=== PATIENT | female | born 1960 | race Caucasian/White ===

== ENCOUNTER 2017-04-19 08:58 | Outpatient (POV) | payer OTHER, MEDICARE, SELFPAY | END 2017-04-19 13:57 | disposition home or self-care (01) | PROVIDERS: Visit Provider Podiatrist | DX: Z98.890 Other specified postprocedural states (principal) | CPT/HCPCS: 99024; 73630 ==

== ENCOUNTER 2017-05-03 08:53 | Outpatient (POV) | payer OTHER, MEDICARE, SELFPAY | END 2017-05-03 11:02 | disposition home or self-care (01) | PROVIDERS: Visit Provider Podiatrist | DX: Z98.890 Other specified postprocedural states (principal) | CPT/HCPCS: 99024; 73630 ==

== ENCOUNTER → 2017-05-19 11:09 | Outpatient (CLI) | payer OTHER, MEDICARE, SELFPAY ==
--- NOTE | 2017-05-19 | XR_ITS ---
XR foot RT min 3V HISTORY: Follow-up surgery/fusion ITS.REASON: POST OP VIEWS ORDERING PHYSICIAN: Elo Barakat DPM PATIENT AGE: 56 years COMPARISON: 05/03/2017 FINDINGS: Orthopedic hardware remains in place. 2 erlin are present stabilizing the first metatarsal tarsal joint with a transverse screw extending from the medial cuneiform into the base of the second metatarsal and a large staple also at the second metatarsal tarsal junction. There is an additional transverse screw at the mid aspect of the medial cuneiform extending into the second metatarsal tarsal junction. There remains good alignment. No evidence of widening at the base of the first and second metatarsals. IMPRESSION: Overall no change status post ORIF Lisfranc injury as detailed above. Good alignment of the bony structures
== END ==
PROVIDERS: PCP Family Medicine; Visit Provider Podiatrist
DX: M79.671 Pain in right foot (principal); Z09 Encounter for follow-up examination after completed treatment for conditions other than malignant neoplasm
CPT/HCPCS: 73630

== ENCOUNTER 2017-05-25 09:04 | Emergency (ER) | payer OTHER, MEDICARE, SELFPAY ==
[2017-05-25 09:22] VITALS: BP 180/90; PULSE 100; RESP 20; TEMP 36.2; O2SAT 97; BMI 35.4
--- NOTE | 2017-05-25 09:30 | HMH.EDUTC ---
[facility] [place] Disposition Clinical Impression: Influenza Disposition: Home, Self-Care Condition on Discharge: Good Instructions: Influenza, Influenza (Alternative Therapy) Additional Instructions: ? Start Tamiflu today if you are going to take it. Discussed risk and possible benefits. ? Too late to start Tamiflu. Most effective when started within 48 hours of symptoms onset ? Lots of rest ? Increase Fluids water, Gatorade, powerade, pedialyte,if /toddler/child ? Alternate Tylenol and / or ibuprofen as discussed for fever, aches, chills x 24 hours without medication for symptoms ? Follow up IMMEDIATELY for new or worsening Symptoms OR no noticeable improvement over the next 48-72 hours, 911 for difficulty or breathing ? You or your child area contagious until no fever, aches, chills for 24 hours with medication for symptoms Prescriptions: Oseltamivir Phosphate [Tamiflu 75mg Capsule] 75 mg PO BID #10 capsule Promethazine/Dextromethorphan [Promethazine-Dm Syrup] 5 ml PO Q4H PRN #200 syrup PRN Reason: Cough Time of Disposition: 09:46 Medical Decision Making Vital Signs: 05/25/17 09:22 Temperature 97.2 F L Temperature Source Temporal Artery Scan Pulse Rate [Left] 100 H Respiratory Rate 20 Blood Pressure [Right Arm] 180/90 Blood Pressure Mean [Right Arm] 120 Blood Pressure Source [Right Arm] Automatic Cuff Blood Pressure Position [Right Arm] Sitting 02 Sat by Pulse Oximetry 97 Oxygen Delivery Method Room Air - Pravin Inquiry Pt receiving controlled substance: No Pravin was queried for this patient: No [facility] [place] HPI - General Stated complaint: Aching all over [place] Mode of Arrival: Ambulatory Source of Information: Patient Limitations: No Limitations Description of Symptoms (Recalled from Triage Doc. by RN): COUGH, CONGESTION EARACHE BEGAN WEDNESDAY HE Symptoms (Recalled from RN notes): Yes Resp Symptoms (Recalled from RN notes): No Skin Symptoms (Recalled from RN notes): No MS Symptoms (Recalled from RN notes): No Functional Status (Recalled from RN notes): N - History of Present Illness Provider Complaint: Patient state that for the last couple of day she has had body aches, chills, feeling like she was breaking out in a cold sweat. Sinus pain and pressure along with coughing, sneezing and stuffy nose. State that this morning she began to have diarrhea so she came in to get checked - Related Data Home Medications Medication Instructions Recorded Confirmed clonazepam 1 mg tablet 1 mg PO QHS 05/18/17 cyclobenzaprine 10 mg tablet 10 mg PO Q8H 05/18/17 diclofenac 1 % topical gel 2 g TOPICAL QID 05/18/17 fluticasone 50 mcg/actuation nasal 50 mcg INTRANASAL QDAY PRN 05/18/17 spray,suspension lisinopril 5 mg tablet 5 mg PO QDAY 05/18/17 venlafaxine ER 75 mg 75 mg PO QDAY 05/18/17 capsule,extended release 24 hr Previous Rx's Medication Instructions Recorded Oseltamivir Phosphate [Tamiflu 75 mg PO BID #10 capsule 05/25/17 75mg Capsule] Promethazine/Dextromethorphan 5 ml PO Q4H PRN #200 syrup 05/25/17 [Promethazine-Dm Syrup] Allergies Allergy/AdvReac Type Severity Reaction Status Date / Time cephalexin [From KEFLEX] Allergy Unknown I-RASH Verified 05/25/17 09:26 - Worker's Comp Is this a Worker's Comp case?: No [facility] History Medical History: Reports:: Hypertension Other Medical History: Reports: Arthritis Laterality Cases: Right: Other Other Surgeries: Yes: Other Amputation: No Fractures: Yes - *Social History Smoking Status: Never smoker Tobacco Type: cigarettes # Packs/Day (cigarettes): 0 #Yrs smoked (if former smoker): 0 Alcohol Intake: never Alcohol Intake Frequency:: holidays/special occasions only Substance Use Type: denies use Occupational Status: employed Housing: house Household Members: spouse - Psychiatric History Expresses thoughts of harming self/others: None Suicide Plan Description: No Plan *Family Hx:: Diabetes, Hypertension ROS Obtained: Yes All s
--- NOTE | 2017-05-25 09:33 | ED_ITS ---
[facility] [place] Clinical Impression: Influenza Disposition: Home, Self-Care Condition on Discharge: Good Instructions: Influenza, Influenza (Alternative Therapy) Additional Instructions: ? Start Tamiflu today if you are going to take it. Discussed risk and possible benefits. ? Too late to start Tamiflu. Most effective when started within 48 hours of symptoms onset ? Lots of rest ? Increase Fluids water, Gatorade, powerade, pedialyte,if /toddler/child ? Alternate Tylenol and / or ibuprofen as discussed for fever, aches, chills x 24 hours without medication for symptoms ? Follow up IMMEDIATELY for new or worsening Symptoms OR no noticeable improvement over the next 48-72 hours, 911 for difficulty or breathing ? You or your child area contagious until no fever, aches, chills for 24 hours with medication for symptoms Prescriptions: Oseltamivir Phosphate [Tamiflu 75mg Capsule] 75 mg PO BID #10 capsule Promethazine/Dextromethorphan [Promethazine-Dm Syrup] 5 ml PO Q4H PRN #200 syrup PRN Reason: Cough Time of Disposition: 09:46 Medical Decision Making Vital Signs: 05/25/17 09:22 Temperature 97.2 F L Temperature Source Temporal Artery Scan Pulse Rate [Left] 100 H Respiratory Rate 20 Blood Pressure [Right Arm] 180/90 Blood Pressure Mean [Right Arm] 120 Blood Pressure Source [Right Arm] Automatic Cuff Blood Pressure Position [Right Arm] Sitting 02 Sat by Pulse Oximetry 97 Oxygen Delivery Method Room Air - Pravin Inquiry Pt receiving controlled substance: No Pravin was queried for this patient: No [facility] [place] - General Stated complaint: Aching all over [place] Mode of Arrival: Ambulatory Source of Information: Patient Limitations: No Limitations Description of Symptoms (Recalled from Triage Doc. by RN): COUGH, CONGESTION EARACHE BEGAN WEDNESDAY HE Symptoms (Recalled from RN notes): Yes Resp Symptoms (Recalled from RN notes): No Skin Symptoms (Recalled from RN notes): No MS Symptoms (Recalled from RN notes): No Functional Status (Recalled from RN notes): N - History of Present Illness Provider Complaint: Patient state that for the last couple of day she has had body aches, chills, feeling like she was breaking out in a cold sweat. Sinus pain and pressure along with coughing, sneezing and stuffy nose. State that this morning she began to have diarrhea so she came in to get checked - Related Data Home Medications Medication Instructions Recorded Confirmed clonazepam 1 mg tablet 1 mg PO QHS 05/18/17 cyclobenzaprine 10 mg tablet 10 mg PO Q8H 05/18/17 diclofenac 1 % topical gel 2 g TOPICAL QID 05/18/17 fluticasone 50 mcg/actuation nasal 50 mcg INTRANASAL QDAY PRN 05/18/17 spray,suspension lisinopril 5 mg tablet 5 mg PO QDAY 05/18/17 venlafaxine ER 75 mg 75 mg PO QDAY 05/18/17 capsule,extended release 24 hr Previous Rx's Medication Instructions Recorded Oseltamivir Phosphate [Tamiflu 75 mg PO BID #10 capsule 05/25/17 75mg Capsule] Promethazine/Dextromethorphan 5 ml PO Q4H PRN #200 syrup 05/25/17 [Promethazine-Dm Syrup] Allergies Allergy/AdvReac Type Severity Reaction Status Date / Time cephalexin [From KEFLEX] Allergy Unknown I-RASH Verified 05/25/17 09:26 - Worker's Comp Is this a Worker's Comp case?: No [facility] History Medical His
[2017-05-25 09:42] LABS: UTC Strep Screen (Rapid) Negative (Negative)
[2017-05-25 09:44] LABS: UTC Influenza A Antigen Positive (Negative); UTC Influenza B Antigen Negative (Negative)
== END 2017-05-25 10:04 | disposition home or self-care (01) ==
PROVIDERS: Emergency Provider Nurse Practitioner; PCP Family Medicine
DX: J11.1 Influenza due to unidentified influenza virus with other respiratory manifestations (principal); I10 Essential (primary) hypertension; Z79.899 Other long term (current) drug therapy; Z79.51 Long term (current) use of inhaled steroids
CPT/HCPCS: 87804; 87880; 99202

== ENCOUNTER → 2017-06-21 10:00 | Outpatient (POV) | payer OTHER, MEDICARE, SELFPAY | PROVIDERS: PCP Family Medicine; Visit Provider Specialist | DX: M21.371 Foot drop, right foot (principal) | CPT/HCPCS: 95886; 95908 ==

== ENCOUNTER → 2017-08-18 13:51 | Outpatient (CLI) | payer OTHER, MEDICARE, SELFPAY ==
--- NOTE | 2017-08-18 14:01 | XR_ITS ---
XR ribs RT min 3V w CXR1V Ordering Physician: Dede Bonner Patient Age: 56 years: Female HISTORY:. Right-sided chest pain rib pain no injury TECHNIQUE: Oblique views ribs along with AP and below diaphragm views. COMPARISON :Chest x-ray 03/31/2017 FINDINGS No acute fracture or findings at the right ribs. . No lesions evident. There is an old appearing healed rib fracture at the right lateral eighth rib. . There is extensive degenerative changes of spine with mild scoliosis. Old fixation at the L3/4 level. Disc spacer devices at L 3/4 L4/5 L5/S1 with laminectomy through the lower L-spine noted. Partially imaged.. There appear to be some old residual postsurgical changes at cervical thoracic junction likely involving T1 Lungs clear with heart zayra and mediastinal structures satisfactory. Heart is slightly larger on this AP projection IMPRESSION: ... No acute right rib fracture or lesion. Old right eighth rib fracture noted. Appears fairly old . Lungs clear no active disease . Degenerative changes throughout spine. Mild Scoliosis. Fusion & Postsurgical changes lower lumbar spine noted Minimal surgical changes at cervical thoracic junction noted
--- NOTE | 2017-08-18 14:30 | MM_ITS ---
MM Dig screening mamm BI w/CAD CAD Screening COMPARISON: Digital mammograms 11/02/2012 and 07/22/2011 INDICATION: There is no personal or family history of breast cancer. TECHNIQUE: Standard CC and MLO images were obtained. R2 CAD reviewed. FINDINGS: The breasts are composed primarily of fat with minimal scattered fibroglandular densities throughout each breast. There is a mole marker in each breast. There are few benign-appearing calcifications in each breast there is no suspicious lesion and no suspicious microcalcifications.. IMPRESSION: Fatty type breast parenchyma no suspicious lesion seen BI-RADS Category: 2 Benign Finding(s) RECOMMENDED FOLLOW-UP: 1YR - 1 YEAR FOLLOW-UP (A letter has been sent to the patient regarding results of the study.)
== END ==
PROVIDERS: PCP Family Medicine; Visit Provider Nurse Practitioner Family
DX: R07.81 Pleurodynia (principal); Z12.31 Encounter for screening mammogram for malignant neoplasm of breast
CPT/HCPCS: 71101; 77067

== ENCOUNTER → 2017-09-20 13:48 | Outpatient (CLI) | payer OTHER, MEDICARE, SELFPAY ==
--- NOTE | 2017-09-20 14:26 | MR_ITS ---
MR lumbar spine wo con, MR 3-d myelogram/MRCP HISTORY: Low back pain, sciatica, right-sided low back pain with numbness in right leg and foot. Prior back surgery. ORDERING PHYSICIAN: Bentley Watson MD PATIENT AGE: 56 years COMPARISON: 12/04/1715 TECHNIQUE: Standard multiplanar multiecho sequences are performed without contrast. 3-D MIP and myelographic images are also rendered and reviewed FINDINGS: There is normal alignment. Extensive artifact is present from postsurgical changes. Multilevel degenerative disc disease with bulging disc and osteophyte formation is noted along with facet ligamentum flavum hypertrophy as detailed below. The spinal cord ends at the L1 level. There is mild lumbar scoliosis convex left. T10-T11: Degenerative disc disease with mild ligamentum flavum hypertrophy and mild bilateral lateral recess narrowing. T11-T12: Degenerative disc disease with small concentric bulging disc slightly eccentric towards the left with mild left foraminal narrowing. Mild facet hypertrophic change on the left as well. T12-L1: Degenerative disc disease with bulging disc and endplate irregularity with type I endplate changes. There is facet and ligamentum flavum hypertrophy on the left with left lateral recess narrowing and moderate severe left-sided foraminal narrowing. Mild retrolisthesis of T12 of 2 to 3 mm L1-L2: Degenerative disc disease with type I endplate changes and irregularity of the endplates with bulging disc. There is mild retrolisthesis of L1 2 to 3 mm. Moderate to severe bilateral lateral recess narrowing and moderate to severe bilateral foraminal narrowing. L2-L3: Degenerative disc disease with bulging disc and endplate sclerosis. Significant artifact from interpedicular screws through L3. There is moderate ligamentum flavum hypertrophy causing transverse canal stenosis of 9 mm with severe bilateral lateral recess and foraminal narrowing. Artifact does obscure fine detail. L3-L4: Degenerative disc disease. There is isointense signal along the anterior right aspect of the thecal sac could be related to disc protrusion or even epidural fibrosis. This is causing mild right-sided foraminal and lateral recess narrowing. Artifact present from interpedicular screws at L4. L4-L5: Postsurgical change with disc spacer device present. Facet hypertrophy. L5-S1: Degenerative disc disease with disc spacer device present. Surgical changes. IMPRESSION: Abnormal MRI lumbar spine with multilevel lumbar spondylosis with degenerative disc disease along with facet and ligamentum flavum hypertrophy resulting in lateral recess and foraminal narrowing. Please see above for detailed description at each level. There is transverse canal stenosis at L2-L3. Postsurgical changes as described above. Please see above for detail. This is causing considerable artifact. No extruded herniated disc.
== END ==
PROVIDERS: PCP Family Medicine; Visit Provider Family Medicine
DX: M54.41 Lumbago with sciatica, right side (principal); M54.42 Lumbago with sciatica, left side
CPT/HCPCS: 72148; 76376

== ENCOUNTER → 2017-10-21 07:55 | Outpatient (CLI) | payer OTHER, MEDICARE, SELFPAY ==
[2017-10-21 09:12] LABS: Alanine Aminotransferase 97 U/L (12-78); Albumin Level 3.7 gm/dL (3.4-5.0); Alkaline Phosphatase 133 U/L (46-116); Aspartate Amino Transferase 60 U/L (15-37); Bilirubin,Direct 0.2 mg/dL (0.0-0.2); Bilirubin,Indirect 0.6 mg/dL (0.0-0.9); Bilirubin,Total 0.8 mg/dL (0.2-1.0); Total Protein,Serum 6.8 gm/dL (6.4-8.2)
== END ==
PROVIDERS: Visit Provider Nurse Practitioner Family
DX: R74.8 Abnormal levels of other serum enzymes (principal)
CPT/HCPCS: 36415; 80076

== ENCOUNTER → 2017-11-02 07:49 | Outpatient (CLI) | payer OTHER, SELFPAY ==
--- NOTE | 2017-11-02 07:51 | US_ITS ---
US liver HISTORY: ITS.REASON: ELEVATED LIVER ENZYMES ORDERING PHYSICIAN: Bentley Watson MD PATIENT AGE: 56 years COMPARISON: None FINDINGS: The exam was technically difficult due to patient's body habitus according to the technologist. PANCREAS:Unremarkable. No obvious mass or abnormal fluid collection. No ductal dilatation LIVER there is increased echogenicity of the liver with poor through transmission of sound consistent with fatty liver. No focal liver lesions or ductal dilatation evident. There is appropriate direction of blood flow within the portal vein RIGHT KIDNEY:Unremarkable. Normal size and echogenicity. No hydronephrosis GALLBLADDER:No gallstones, gallbladder wall thickening, pericholecystic fluid, or biliary dilatation. IMPRESSION: 1. Somewhat limited study secondary to patient's body habitus. 2. Fatty liver
== END ==
PROVIDERS: PCP Family Medicine; Visit Provider Family Medicine
DX: R74.8 Abnormal levels of other serum enzymes (principal)
CPT/HCPCS: 76705

== ENCOUNTER → 2017-11-15 10:26 | Outpatient (POV) | payer OTHER, MEDICARE, SELFPAY ==
[2017-11-15 10:48] VITALS: BP 167/102; PULSE 71; RESP 18; O2SAT 98
--- NOTE | 2017-11-15 12:33 | HMH.PMCON ---
Assessment and Plan (1) Postlaminectomy syndrome Current visit: Yes Status: Chronic Category: Medical Code(s): M96.1 - Postlaminectomy syndrome, not elsewhere classified (2) Sacroiliitis Current visit: Yes Status: Chronic Category: Medical Code(s): M46.1 - Sacroiliitis, not elsewhere classified (3) Degenerative disc disease, lumbar Current visit: Yes Status: Chronic Category: Medical Code(s): M51.36 - Other intervertebral disc degeneration, lumbar region - Assessment and plan all Dx Assessment and Plan for all problems:: Patient and I discussed epidural injections along with SI joint injections. We will begin with bilateral SI joint injections to see if this helps alleviate some of her pain symptoms. I will follow-up with her 2 weeks after her injection and reassess her symptoms at that time. Patient's tried and failed anti-inflammatories, physical therapy, massage therapy, home stretching. Patient is not on any anticoagulation therapy. This note was dictated using voice recognition software and may contain errors or omissions HPI - Data of Consult Consult date: 11/15/17 Requesting Physician: Kaylee Melgar APRN Primary Care Provider: Bentley Watson MD Family Provider: Referral Provider, - Consult Narrative Reason for consult: Low back pain History of present illness: Ms. Curry is a 57 year old female presents today for consultation in regards to her low back pain. Patient has had previous back surgeries. Patient's new MRI does show some worsening pathology. Patient is a candidate for surgery however due to family issues she is unable to complete this at this time. Patient states most of her pain is in her low back and radiates into her hips that time. Patient is extremely tender over bilateral SI joints. Patient does have some numbness in her bilateral legs. Patient states that walking and bending increases the pain while resting decreases her pain she rates her pain a 9 out of 10 today. Patient's tried and failed physical therapy and massage therapy. Patient is continuing to do home stretching therapy. CC: Kaylee Melgar APRN [facility] History I have reviewed the patient's past medical history: Yes Medical History: Reports:: Hypertension Other Medical History: Reports: Arthritis Laterality Cases: Right: Other Other Surgeries: Yes: Other Amputation: No Fractures: Yes - *Social History Educational Level: Completed College Smoking Status: Never smoker Tobacco Type: cigarettes # Packs/Day (cigarettes): 0 #Yrs smoked (if former smoker): 0 Alcohol Intake: never Alcohol Intake Frequency:: holidays/special occasions only Substance Use Type: denies use Occupational Status: employed Housing: house Household Members: spouse - Psychiatric History Expresses thoughts of harming self/others: None Suicide Plan Description: No Plan *Family Hx:: Diabetes, Hypertension Review of Systems - Review of Systems ROS General: no recent weight change, no fever, no sleep disturbances Respiratory: no cough, no shortness of air, no recurring pulmonary infections Cardiovascular/Peripheral Vascular: No chest pain, No palpitations, no edema, no shortness of breath. Gastrointestinal: no incontinence, normal bowel movements reported Genitourinary: no incontinence Musculoskeletal: Back pain, bilateral SI joint pain Psychiatric: normal mood/ affect, Neurological: [denies weakness in extremities], [denies balance issues] Meds Home Medications Medication Instructions Recorded Confirmed Type clonazepam 1 mg tablet 1 mg PO QHS 05/18/17 History cyclobenzaprine 10 mg tablet 10 mg PO Q8H 05/18/17 History diclofenac 1 % topical gel 2 g TOPICAL QID 05/18/17 History fluticasone 50 mcg/actuation nasal 50 mcg INTRANASAL QDAY PRN 05/18/17 History spray,suspension lisinopril 5 mg tablet 5 mg PO QDAY 05/18/17 History venlafaxine ER 75 mg 75 mg PO QDAY 05/18/17 History capsule,
--- NOTE | 2017-11-15 12:36 | P.CONS_ITS ---
Assessment and Plan (1) Postlaminectomy syndrome Current visit: Yes Status: Chronic Category: Medical Code(s): M96.1 - Postlaminectomy syndrome, not elsewhere classified (2) Sacroiliitis Current visit: Yes Status: Chronic Category: Medical Code(s): M46.1 - Sacroiliitis, not elsewhere classified (3) Degenerative disc disease, lumbar Current visit: Yes Status: Chronic Category: Medical Code(s): M51.36 - Other intervertebral disc degeneration, lumbar region - Assessment and plan all Dx Assessment and Plan for all problems:: Patient and I discussed epidural injections along with SI joint injections. We will begin with bilateral SI joint injections to see if this helps alleviate some of her pain symptoms. I will follow-up with her 2 weeks after her injection and reassess her symptoms at that time. Patient's tried and failed anti-inflammatories, physical therapy, massage therapy, home stretching. Patient is not on any anticoagulation therapy. This note was dictated using voice recognition software and may contain errors or omissions HPI - Data of Consult Consult date: 11/15/17 Requesting Physician: Kaylee Melgar APRN Primary Care Provider: Bentley Watson MD Family Provider: Referral Provider, - Consult Narrative Reason for consult: Low back pain History of present illness: Ms. Curry is a 57 year old female presents today for consultation in regards to her low back pain. Patient has had previous back surgeries. Patient's new MRI does show some worsening pathology. Patient is a candidate for surgery however due to family issues she is unable to complete this at this time. Patient states most of her pain is in her low back and radiates into her hips that time. Patient is extremely tender over bilateral SI joints. Patient does have some numbness in her bilateral legs. Patient states that walking and bending increases the pain while resting decreases her pain she rates her pain a 9 out of 10 today. Patient's tried and failed physical therapy and massage therapy. Patient is continuing to do home stretching therapy. CC: Kaylee Melgar APRN [facility] History I have reviewed the patient's past medical history: Yes Medical History: Reports:: Hypertension Other Medical History: Reports: Arthritis Laterality Cases: Right: Other Other Surgeries: Yes: Other Amputation: No Fractures: Yes - *Social History Educational Level: Completed College Smoking Status: Never smoker Tobacco Type: cigarettes # Packs/Day (cigarettes): 0 #Yrs smoked (if former smoker): 0 Alcohol Intake: never Alcohol Intake Frequency:: holidays/special occasions only Substance Use Type: denies use Occupational Status: employed Housing: house Household Members: spouse - Psychiatric History Expresses thoughts of harming self/others: None Suicide Plan Description: No Plan *Family Hx:: Diabetes, Hypertension Review of Systems - Review of Systems ROS General: no recent weight change, no fever, no sleep disturbances Respiratory: no cough, no shortness of air, no recurring pulmonary infections Cardiovascular/Peripheral Vascular: No chest pain, No palpitations, no edema, no shortness of breath. Gastrointestinal: no incontinence, normal bowel movements reported Genitourinary: no incontinence Musculoskeletal: Back pain, bilateral SI joint pain Psychiatric: normal mood/ affect, Neurological: [denies weakness in extremities], [denies balance issues] Meds Home Medications
== END ==
PROVIDERS: PCP Family Medicine; Visit Provider Clinical Nurse Specialist Family Health
DX: M96.1 Postlaminectomy syndrome, not elsewhere classified (principal); M46.1 Sacroiliitis, not elsewhere classified; M51.36 Other intervertebral disc degeneration, lumbar region
CPT/HCPCS: 99202

== ENCOUNTER 2017-11-16 11:23 | Day surgery (SDC) | payer OTHER, MEDICARE, SELFPAY ==
[2017-11-16 12:03] VITALS: BP 153/81; PULSE 69; RESP 18; TEMP 36.2; O2SAT 98; BMI 37.3
--- NOTE | 2017-11-16 12:21 | HMH.PMPROC ---
- Procedure Date: 11/16/17 Time: 12:25 Anesthesiologist:: Kaylee Melgar APRN Complications:: None Pre-procedure Diagnosis:: Sacroiliitis Post-procedure Diagnosis:: Same Indications for Procedure:: Patient is a pleasant 49-year-old white female who presents today for bilateral SI joint injections. Patient has had multiple back surgeries and is having increased bilateral SI joint pain along with low back pain and radicular symptoms. Patient is a surgical candidate however she wants to hold off surgery as long as possible. Patient rates her pain a 6 out of 10 today mostly located over her bilateral SI joint injections who presents today for bilateral SI joint injection under fluoroscopy. Physical Exam General: Alert and oriented x3, no acute distress, pleasant and cooperative, on room air Lungs: Resps E/U, Symmetrical chest expansion, Eyes: PERRL Musculoskeletal: Flexion and extension of lumbar spine somewhat guarded secondary to pain, deep tendon reflexes normal, strength in upper and lower extremities [5/5], slightly antalgic gait noted, positive Matthew's test bilaterally Neurological: speech clear, transonic engineer equal, no gross sensory deficits Procedure Details:: Informed consent was obtained and the risks and benefits of the procedure were explained to the patient. Patient was taken to the procedure room. Patient was placed prone on the procedure table. Bilateral hips were prepped using ChloraPrep as a cleansing solution. Using fluoroscopic guidance I placed a 22-gauge spinal needle into the inferior aspect of the SI joint. After this I injected 5 mL bupivacaine 0.25% and Depo-Medrol 40 mg into the left SI joint. I then repeated this on the right side. The patient tolerated the procedure well with no complication. Plan and Disposition:: We will follow-up with this patient in 2 weeks reassess her symptoms at that time. Patient's been instructed to call the office if she has any issues prior to this. Patient may need lumbar epidural steroid injections if she does not get adequate relief from this. This note was dictated using voice recognition software and may contain errors or omissions
[2017-11-16 12:23] VITALS: BP 155/83; PULSE 78; O2SAT 98
[2017-11-16 12:25] VITALS: BP 152/78; PULSE 78; RESP 18; O2SAT 97
--- NOTE | 2017-11-16 12:29 | P.PCN_ITS ---
- Procedure Date: 11/16/17 Time: 12:25 Anesthesiologist:: Kaylee Melgar APRN Complications:: None Pre-procedure Diagnosis:: Sacroiliitis Post-procedure Diagnosis:: Same Indications for Procedure:: Patient is a pleasant 49-year-old white female who presents today for bilateral SI joint injections. Patient has had multiple back surgeries and is having increased bilateral SI joint pain along with low back pain and radicular symptoms. Patient is a surgical candidate however she wants to hold off surgery as long as possible. Patient rates her pain a 6 out of 10 today mostly located over her bilateral SI joint injections who presents today for bilateral SI joint injection under fluoroscopy. Physical Exam General: Alert and oriented x3, no acute distress, pleasant and cooperative, on room air Lungs: Resps E/U, Symmetrical chest expansion, Eyes: PERRL Musculoskeletal: Flexion and extension of lumbar spine somewhat guarded secondary to pain, deep tendon reflexes normal, strength in upper and lower extremities [5/5], slightly antalgic gait noted, positive Amtthew's test bilaterally Neurological: speech clear, data base design analyst equal, no gross sensory deficits Procedure Details:: Informed consent was obtained and the risks and benefits of the procedure were explained to the patient. Patient was taken to the procedure room. Patient was placed prone on the procedure table. Bilateral hips were prepped using ChloraPrep as a cleansing solution. Using fluoroscopic guidance I placed a 22- gauge spinal needle into the inferior aspect of the SI joint. After this I injected 5 mL bupivacaine 0.25% and Depo-Medrol 40 mg into the left SI joint. I then repeated this on the right side. The patient tolerated the procedure well with no complication. Plan and Disposition:: We will follow-up with this patient in 2 weeks reassess her symptoms at that time. Patient's been instructed to call the office if she has any issues prior to this. Patient may need lumbar epidural steroid injections if she does not get adequate relief from this. This note was dictated using voice recognition software and may contain errors or omissions
[2017-11-16 12:32] VITALS: BP 158/74; PULSE 75; RESP 20; O2SAT 98
== END 2017-11-16 12:33 | disposition home or self-care (01) ==
LOC: SC.PAINP 11:27
PROVIDERS: PCP Family Medicine; Visit Provider Clinical Nurse Specialist Family Health
DX: M46.1 Sacroiliitis, not elsewhere classified (principal)
CPT/HCPCS: 27096; G0260; J1030

== ENCOUNTER → 2017-12-07 08:56 | Outpatient (POV) | payer OTHER, MEDICARE, SELFPAY ==
--- NOTE | 2017-12-07 09:15 | HMH.PAINSOAP ---
[facility] Pain Management SOAP Note Subjective:: Patient is a pleasant 57-year-old white female who presents for follow-up after bilateral SI joint injections. Patient is doing extremely well stating that her pain is a 0 out of 10 today. Patient is having some neck pain and is good to be seeing her massage therapist. Patient states after her injection she did have a several flareups however they were easily managed. Patient is interested in repeating these injections in several weeks to see if she can get some more long-term efficacy from them. ROS General: no recent weight change, no fever, no sleep disturbances Respiratory: no cough, no shortness of air, no recurring pulmonary infections Cardiovascular/Peripheral Vascular: No chest pain, No palpitations, no edema, no shortness of breath. Gastrointestinal: no incontinence, normal bowel movements reported Genitourinary: no incontinence Musculoskeletal: Neck pain, SI joint pain at times Psychiatric: normal mood/ affect Neurological: [denies weakness in extremities], [denies balance issues] Objective:: Physical Exam General: Alert and oriented x3, no acute distress, pleasant and cooperative, [on room air] Lungs: Resps E/U, Symmetrical chest expansion, Eyes: PERRL Musculoskeletal: Flexion and extension of lumbar spine somewhat guarded secondary to pain, deep tendon reflexes normal, strength in upper and lower extremities [5/5], slightly antalgic gait noted, but Matthew's test bilaterally Neurological: speech clear, funeral director/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 Patient is not on any anticoagulation therapy. I will follow-up with the patient after her injection. This note was dictated using voice recognition software and may contain errors or omissions
--- NOTE | 2017-12-07 09:18 | P.CONS_ITS ---
[facility] Pain Management SOAP Note Subjective:: Patient is a pleasant 57-year-old white female who presents for follow-up after bilateral SI joint injections. Patient is doing extremely well stating that her pain is a 0 out of 10 today. Patient is having some neck pain and is good to be seeing her massage therapist. Patient states after her injection she did have a several flareups however they were easily managed. Patient is interested in repeating these injections in several weeks to see if she can get some more long-term efficacy from them. ROS General: no recent weight change, no fever, no sleep disturbances Respiratory: no cough, no shortness of air, no recurring pulmonary infections Cardiovascular/Peripheral Vascular: No chest pain, No palpitations, no edema, no shortness of breath. Gastrointestinal: no incontinence, normal bowel movements reported Genitourinary: no incontinence Musculoskeletal: Neck pain, SI joint pain at times Psychiatric: normal mood/ affect Neurological: [denies weakness in extremities], [denies balance issues] Objective:: Physical Exam General: Alert and oriented x3, no acute distress, pleasant and cooperative, [ on room air] Lungs: Resps E/U, Symmetrical chest expansion, Eyes: PERRL Musculoskeletal: Flexion and extension of lumbar spine somewhat guarded secondary to pain, deep tendon reflexes normal, strength in upper and lower extremities [5/5], slightly antalgic gait noted, but Matthew's test bilaterally Neurological: speech clear, supervisor soldering equal, no gross sensory deficits Assessment:: Sacroiliitis, neck pain Plan:: We will repeat her bilateral SI joint injections in several weeks to see if this gives her some more long-term results. Patient is not on any anticoagulation therapy. I will follow-up with the patient after her injection. This note was dictated using voice recognition software and may contain errors or omissions
[2017-12-07 09:32] VITALS: BP 134/85; PULSE 84; RESP 18; O2SAT 98; BMI 36.1
== END ==
PROVIDERS: PCP Family Medicine; Visit Provider Clinical Nurse Specialist Family Health
DX: M46.1 Sacroiliitis, not elsewhere classified (principal)
CPT/HCPCS: 99212

== ENCOUNTER → 2018-01-04 10:53 | Outpatient (POV) | payer OTHER, SELFPAY ==
[2018-01-04 11:14] VITALS: BP 155/88; PULSE 73; RESP 18; O2SAT 98; BMI 35.4
--- NOTE | 2018-01-04 11:35 | HMH.PAINSOAP ---
[facility] Pain Management SOAP Note Subjective:: Patient is a pleasant 57-year-old white female who presents today for follow-up after bilateral SI joint injections. Patient states she did not get as much relief from her injections at this time. Patient and I discussed moving to epidural injections. Patient would like to try this. Patient would also like to be put on some anti-inflammatory medication. I believe that this would be beneficial. Patient rates her pain a 7 out of 10 today. ROS General: no recent weight change, no fever, no sleep disturbances Respiratory: no cough, no shortness of air, no recurring pulmonary infections Cardiovascular/Peripheral Vascular: No chest pain, No palpitations, no edema, no shortness of breath. Gastrointestinal: no incontinence, normal bowel movements reported Genitourinary: no incontinence Musculoskeletal: Back pain, leg pain Psychiatric: normal mood/ affect, Neurological: [denies weakness in extremities], [denies balance issues] Objective:: Physical Exam General: Alert and oriented x3, no acute distress, pleasant and cooperative, [on room air] Lungs: Resps E/U, Symmetrical chest expansion, Eyes: PERRL Musculoskeletal: Flexion and extension of lumbar spine somewhat guarded secondary to pain, deep tendon reflexes normal, strength in upper and lower extremities [5/5], antalgic gait noted, positive straight leg raise test bilaterally at 30? Neurological: speech clear, preparation department supervisor equal, no gross sensory deficits Assessment:: Degenerative disc disease of lumbar spine with lumbar radiculopathy, postlaminectomy syndrome of the lumbar spine, sacroiliitis Plan:: We will schedule an L4-L5 lumbar epidural steroid injection for this patient. I believe it would be beneficial given her worsening back pain. We will also call in Celebrex 200 mg 1 p.o. daily. I will follow-up with the patient after her injection. Patient is not on any anticoagulation therapy. Patient has done well with injections in the past. This note was dictated using voice recognition software and may contain errors or omissions
--- NOTE | 2018-01-04 11:38 | P.CONS_ITS ---
[facility] Pain Management SOAP Note Subjective:: Patient is a pleasant 57-year-old white female who presents today for follow-up after bilateral SI joint injections. Patient states she did not get as much relief from her injections at this time. Patient and I discussed moving to epidural injections. Patient would like to try this. Patient would also like to be put on some anti-inflammatory medication. I believe that this would be beneficial. Patient rates her pain a 7 out of 10 today. ROS General: no recent weight change, no fever, no sleep disturbances Respiratory: no cough, no shortness of air, no recurring pulmonary infections Cardiovascular/Peripheral Vascular: No chest pain, No palpitations, no edema, no shortness of breath. Gastrointestinal: no incontinence, normal bowel movements reported Genitourinary: no incontinence Musculoskeletal: Back pain, leg pain Psychiatric: normal mood/ affect, Neurological: [denies weakness in extremities], [denies balance issues] Objective:: Physical Exam General: Alert and oriented x3, no acute distress, pleasant and cooperative, [ on room air] Lungs: Resps E/U, Symmetrical chest expansion, Eyes: PERRL Musculoskeletal: Flexion and extension of lumbar spine somewhat guarded secondary to pain, deep tendon reflexes normal, strength in upper and lower extremities [5/5], antalgic gait noted, positive straight leg raise test bilaterally at 30? Neurological: speech clear, mobile therapist equal, no gross sensory deficits Assessment:: Degenerative disc disease of lumbar spine with lumbar radiculopathy, postlaminectomy syndrome of the lumbar spine, sacroiliitis Plan:: We will schedule an L4-L5 lumbar epidural steroid injection for this patient. I believe it would be beneficial given her worsening back pain. We will also call in Celebrex 200 mg 1 p.o. daily. I will follow-up with the patient after her injection. Patient is not on any anticoagulation therapy. Patient has done well with injections in the past. This note was dictated using voice recognition software and may contain errors or omissions
== END ==
PROVIDERS: PCP Family Medicine; Visit Provider Clinical Nurse Specialist Family Health
DX: M51.16 Intervertebral disc disorders with radiculopathy, lumbar region (principal); M96.1 Postlaminectomy syndrome, not elsewhere classified; M46.1 Sacroiliitis, not elsewhere classified
CPT/HCPCS: 99213

== ENCOUNTER → 2018-02-01 10:02 | Outpatient (POV) | payer OTHER, SELFPAY ==
[2018-02-01 10:05] VITALS: BP 155/110; PULSE 86; RESP 18; TEMP 36.6; O2SAT 93; BMI 35.4
--- NOTE | 2018-02-01 10:11 | P.CONS_ITS ---
[facility] Pain Management SOAP Note Subjective:: She is a pleasant 57-year-old white female who presents today for follow-up after lumbar epidural steroid injection. Patient states she is doing really well she rates her pain today a 10. Patient states that he had 90% relief after her injection and is continuing to have this pain relief. Patient would like to continue to finish the series of 3 epidural injections. Patient states most of her pain is in her back and down her legs when it is present. ROS General: no recent weight change, no fever, no sleep disturbances Respiratory: no cough, no shortness of air, no recurring pulmonary infections Cardiovascular/Peripheral Vascular: No chest pain, No palpitations, no edema, no shortness of breath. Gastrointestinal: no incontinence, normal bowel movements reported Genitourinary: no incontinence Musculoskeletal: Back pain, leg pain Psychiatric: normal mood/ affect Neurological: [denies weakness in extremities], [denies balance issues] Objective:: Physical Exam General: Alert and oriented x3, no acute distress, pleasant and cooperative, [on room air] Lungs: Resps E/U, Symmetrical chest expansion, Eyes: PERRL Musculoskeletal: Flexion and extension of lumbar spine somewhat guarded secondary to pain, deep tendon reflexes normal, strength in upper and lower extremities [5/5], slightly antalgic gait noted, positive straight leg raise test bilaterally at 30? Neurological: speech clear, fagot heater equal, no gross sensory deficits Assessment:: Degenerative disc disease of lumbar spine with lumbar radiculopathy and postlaminectomy syndrome lumbar spine Plan:: We will schedule an L4-L5 lumbar epidural steroid injection for the patient given the efficacy of the last one. I believe this will be beneficial. Patient is not on any anticoagulation therapy. Patient is continuing a home stretching routine. I will follow-up the patient after injection. This note was dictated using voice recognition software and may contain errors or omissions
== END ==
PROVIDERS: PCP Family Medicine; Visit Provider Clinical Nurse Specialist Family Health
DX: M51.16 Intervertebral disc disorders with radiculopathy, lumbar region (principal); M96.1 Postlaminectomy syndrome, not elsewhere classified
CPT/HCPCS: 99213

== ENCOUNTER → 2018-03-21 11:41 | Outpatient (POV) | payer OTHER, SELFPAY ==
[2018-03-21 12:01] VITALS: BP 155/77; PULSE 86; RESP 18; O2SAT 98; BMI 35.4
--- NOTE | 2018-03-21 12:31 | HMH.PAINSOAP ---
[facility] Pain Management SOAP Note Subjective:: Patient is a very pleasant 57-year-old white female who presents today for follow-up after lumbar epidural steroid injection. Patient was doing well until she had a flare in her right SI joint pain. Patient has had SI joint injections in the past with good relief. Patient is interested in pursuing 1 of these. Patient is continuing a home stretching program. Patient is on anti-inflammatories. She rates her pain a 6 out of 10 today. ROS General: no recent weight change, no fever, no sleep disturbances Respiratory: no cough, no shortness of air, no recurring pulmonary infections Cardiovascular/Peripheral Vascular: No chest pain, No palpitations, no edema, no shortness of breath. Gastrointestinal: no incontinence, normal bowel movements reported Genitourinary: no incontinence Musculoskeletal: Right SI joint pain Psychiatric: normal mood/ affect Neurological: [denies weakness in extremities], [denies balance issues] Objective:: Physical Exam General: Alert and oriented x3, no acute distress, pleasant and cooperative, [on room air] Lungs: Resps E/U, Symmetrical chest expansion, Eyes: PERRL Musculoskeletal: Flexion and extension of lumbar spine somewhat guarded secondary to pain, deep tendon reflexes normal, strength in upper and lower extremities [5/5], antalgic gait noted, positive Matthew's test on the right side Neurological: speech clear, room service associate equal, no gross sensory deficits Assessment:: Degenerative disc disease lumbar spine with lumbar radiculopathy and postlaminectomy syndrome of the lumbar spine with sacroiliitis Plan:: We will move forward with a right SI joint injection for the patient tomorrow. I also encouraged her to continue her anti-inflammatory therapy. This note was dictated using voice recognition software and may contain errors or omissions
== END ==
PROVIDERS: PCP Family Medicine; Visit Provider Clinical Nurse Specialist Family Health
DX: M51.16 Intervertebral disc disorders with radiculopathy, lumbar region (principal); M96.1 Postlaminectomy syndrome, not elsewhere classified; M46.1 Sacroiliitis, not elsewhere classified
CPT/HCPCS: 99213

== ENCOUNTER → 2018-04-06 07:49 | Outpatient (CLI) | payer OTHER, SELFPAY ==
--- NOTE | 2018-04-06 07:52 | XR_ITS ---
XR hip RT 2-3V w/pelvis HISTORY: ITS.REASON: RT HIP PAIN ORDERING PHYSICIAN: Dede Bonner PATIENT AGE: 57 years COMPARISON: 12/29/2011 FINDINGS: No fracture or dislocation is evident. No significant degenerative change. No lytic or blastic change. Unremarkable soft tissues Postsurgical changes are present in the lower lumbar spine with a screw also along the right sacral area IMPRESSION: Negative right hip
== END ==
PROVIDERS: PCP Nurse Practitioner Family; Visit Provider Nurse Practitioner Family
DX: M25.551 Pain in right hip (principal)
CPT/HCPCS: 73502

== ENCOUNTER → 2018-04-18 11:45 | Outpatient (POV) | payer OTHER, SELFPAY ==
[2018-04-18 12:07] VITALS: BP 167/87; PULSE 78; RESP 18; O2SAT 98; BMI 35.4
--- NOTE | 2018-04-18 12:59 | HMH.PAINSOAP ---
[facility] Pain Management SOAP Note Subjective:: She is a pleasant 57-year-old white female who presents today for follow-up after bilateral SI joint injections. Patient has had no success with this. Patient is interested in pursuing a neurostimulator. She rates her pain a 6 out of 10 today. Patient has tried and failed epidural steroid injections along with SI joint injection. Patient has had multiple back surgeries. She has back pain radiating into both legs. ROS General: no recent weight change, no fever, no sleep disturbances Respiratory: no cough, no shortness of air, no recurring pulmonary infections Cardiovascular/Peripheral Vascular: No chest pain, No palpitations, no edema, no shortness of breath. Gastrointestinal: no incontinence, normal bowel movements reported Genitourinary: no incontinence Musculoskeletal: Back pain, leg pain Psychiatric: normal mood/ affect Neurological: [denies weakness in extremities], [denies balance issues] Objective:: Physical Exam General: Alert and oriented x3, no acute distress, pleasant and cooperative, [on room air] Lungs: Resps E/U, Symmetrical chest expansion, Eyes: PERRL Musculoskeletal: Flexion and extension of lumbar spine somewhat guarded secondary to pain, deep tendon reflexes normal, strength in upper and lower extremities [5/5], [abnormal gait noted] Neurological: speech clear, boring and filling machine operator equal, no gross sensory deficits Assessment:: Postlaminectomy syndrome lumbar spine with lumbar radiculopathy and degenerative disc disease lumbar spine Plan:: We will get the patient set up for a neurostimulator trial. I do believe it would be beneficial given her symptomology and her history. I will follow-up with the patient after her trial. We will target both her low back and bilateral leg pain. This note was dictated using voice recognition software and may contain errors or omissions
--- NOTE | 2018-04-18 13:02 | P.CONS_ITS ---
[facility] Pain Management SOAP Note Subjective:: She is a pleasant 57-year-old white female who presents today for follow-up after bilateral SI joint injections. Patient has had no success with this. Patient is interested in pursuing a neurostimulator. She rates her pain a 6 out of 10 today. Patient has tried and failed epidural steroid injections along with SI joint injection. Patient has had multiple back surgeries. She has back pain radiating into both legs. ROS General: no recent weight change, no fever, no sleep disturbances Respiratory: no cough, no shortness of air, no recurring pulmonary infections Cardiovascular/Peripheral Vascular: No chest pain, No palpitations, no edema, no shortness of breath. Gastrointestinal: no incontinence, normal bowel movements reported Genitourinary: no incontinence Musculoskeletal: Back pain, leg pain Psychiatric: normal mood/ affect Neurological: [denies weakness in extremities], [denies balance issues] Objective:: Physical Exam General: Alert and oriented x3, no acute distress, pleasant and cooperative, [on room air] Lungs: Resps E/U, Symmetrical chest expansion, Eyes: PERRL Musculoskeletal: Flexion and extension of lumbar spine somewhat guarded secondary to pain, deep tendon reflexes normal, strength in upper and lower extremities [5/5], [abnormal gait noted] Neurological: speech clear, gate watch equal, no gross sensory deficits Assessment:: Postlaminectomy syndrome lumbar spine with lumbar radiculopathy and degenerative disc disease lumbar spine Plan:: We will get the patient set up for a neurostimulator trial. I do believe it would be beneficial given her symptomology and her history. I will follow-up with the patient after her trial. We will target both her low back and bilateral leg pain. This note was dictated using voice recognition software and may contain errors or omissions
== END ==
PROVIDERS: PCP Family Medicine; Visit Provider Clinical Nurse Specialist Family Health
DX: M96.1 Postlaminectomy syndrome, not elsewhere classified (principal); M51.16 Intervertebral disc disorders with radiculopathy, lumbar region
CPT/HCPCS: 99213

== ENCOUNTER → 2018-10-03 08:52 | Outpatient (CLI) | payer OTHER, SELFPAY ==
[2018-10-03 10:36] LABS: Alanine Aminotransferase 117 U/L (12-78); Albumin Level 3.4 gm/dL (3.4-5.0); Alkaline Phosphatase 151 U/L (46-116); Aspartate Amino Transferase 76 U/L (15-37); Bilirubin,Direct 0.2 mg/dL (0.0-0.2); Bilirubin,Indirect 0.4 mg/dL (0.0-0.9); Bilirubin,Total 0.6 mg/dL (0.2-1.0); Total Protein,Serum 6.6 gm/dL (6.4-8.2)
[2018-10-04 08:27] LABS: Hep A Ab, IgM Negative (Negative); Hepatitis B Core Antibody IgM Negative (Negative); Hepatitis B Surface Antigen Negative (Negative)
[2018-10-04 08:52] LABS: Hepatitis C Antibody <0.1 s/co ratio (0.0-0.9)
== END ==
PROVIDERS: Visit Provider Nurse Practitioner Family
DX: R74.8 Abnormal levels of other serum enzymes (principal)
CPT/HCPCS: 36415; 80074; 80076

== ENCOUNTER → 2018-10-11 16:54 | Outpatient (POV) | payer OTHER, SELFPAY | PROVIDERS: Visit Provider Dermatology | DX: Z00.00 Encounter for general adult medical examination without abnormal findings (principal) ==

== ENCOUNTER → 2018-10-14 07:46 | Outpatient (CLI) | payer OTHER, SELFPAY ==
--- NOTE | 2018-10-14 07:48 | MR_ITS ---
MR abdomen wo con CLINICAL INDICATION: ITS.REASON: ELEVATED LIVER ENZYMES ORDERING PHYSICIAN: Dede Bonner APRN PATIENT AGE: 57 years Comparison: None TECHNIQUE: Routine multiplanar multiecho sequences are performed without contrast. FINDINGS: IMPRESSION: There is a tiny cyst in the superior aspect of the right hepatic lobe at 3 mm. The liver is otherwise unremarkable. The gallbladder, spleen, adrenal glands, and kidneys have an unremarkable appearance. No biliary dilatation. Pancreatic duct is normal in caliber. An MRCP was not performed. No evidence of aortic aneurysm. Artifact is present from interpedicular screws within the lumbar spine. A small area of increased signal is noted in the lateral segment left hepatic lobe on the out of phase image. This measured approximately 1 cm and may be artifact not apparent on the T2 images. IMPRESSION: Essentially negative MRI of the upper abdomen
== END ==
PROVIDERS: PCP Nurse Practitioner Family; Visit Provider Nurse Practitioner Family
DX: R74.8 Abnormal levels of other serum enzymes (principal)
CPT/HCPCS: 74181

== ENCOUNTER 2019-06-20 09:00 | Outpatient (RCR) | payer OTHER, SELFPAY | END 2019-06-20 09:05 | disposition home or self-care (01) | LOC: OT 09:00 | PROVIDERS: PCP Family Medicine; Visit Provider Physical Medicine & Rehabilitation | DX: R41.89 Other symptoms and signs involving cognitive functions and awareness (principal); M25.532 Pain in left wrist; V86.95XA Unspecified occupant of 3- or 4- wheeled all-terrain vehicle (ATV) injured in nontraffic accident, initial encounter | CPT/HCPCS: 97014; 97110; 97140; 97164; 97165; G0283 ==

== ENCOUNTER 2019-06-22 09:00 | Outpatient (RCR) | payer OTHER, SELFPAY ==
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
== END 2019-06-22 09:05 | disposition home or self-care (01) ==
LOC: ST 09:00
PROVIDERS: PCP Family Medicine; Visit Provider Physical Medicine & Rehabilitation
DX: R41.89 Other symptoms and signs involving cognitive functions and awareness (principal); V86.95XA Unspecified occupant of 3- or 4- wheeled all-terrain vehicle (ATV) injured in nontraffic accident, initial encounter
CPT/HCPCS: 92507; 92523

== ENCOUNTER 2019-06-27 09:00 | Outpatient (RCR) | payer OTHER, SELFPAY | END 2019-06-27 09:05 | disposition home or self-care (01) | LOC: PT 09:00 | PROVIDERS: PCP Family Medicine; Visit Provider Physical Medicine & Rehabilitation | DX: M54.2 Cervicalgia (principal); R41.89 Other symptoms and signs involving cognitive functions and awareness; M25.532 Pain in left wrist; V86.95XA Unspecified occupant of 3- or 4- wheeled all-terrain vehicle (ATV) injured in nontraffic accident, initial encounter | CPT/HCPCS: 97010; 97014; 97035; 97110; 97112; 97140; 97163; 97164; G0283 ==

== ENCOUNTER → 2019-11-13 08:03 | Outpatient (CLI) | payer OTHER, SELFPAY ==
--- NOTE | 2019-11-13 08:04 | CA_ITS ---
APPROVED REPORT Director Ship: Selin Pereira RVT Study Quality: Good Indications: malignant HTN Risk Factors Hypertension Obesity Renal Artery Doppler Origin (R) 150.1/ cm/sec Proximal (R) 170.5/ cm/sec Mid (R) 87.1/ cm/sec Distal (R) 119.8/ cm/sec Renal Aorta Ratio (R) 1.77 Segmental A. (R) 75.5/28.3 cm/sec RI: 0.62 Segmental A. Sup (R) 57.3/14.3 cm/sec Segmental A. Mid (R) 75.5/28.3 cm/sec Segmental A. Inf (R) 62.9/15.7 cm/sec Origin (L) 128.5/ cm/sec Proximal (L) 157.7/ cm/sec Mid (L) 170.9/ cm/sec Distal (L) 169.6/ cm/sec Renal Aorta Ratio (L) 1.78 Segmental A. (L) 80.4/25.1 cm/sec RI: 0.68 Segmental A. Sup (L) 65.6/21.4 cm/sec Segmental A. Mid (L) 80.4/25.1 cm/sec Segmental A. Inf (L) 61.6/18.8 cm/sec Renal Measurements Kidney Size (R) 9.8x7.5 cm Cortical Thickness (R) 1.3 cm Kidney Size (L) 10.1x7.7 cm Cortical Thickness (L) 1.5 cm Findings No evidence of renal artery stenosis of the bilateral renal arteries. Conclusion No evidence of renal artery stenosis of the bilateral renal arteries. Electronically signed by : Nathanael Ayala MD 11/13/2019 17:05:39
== END ==
PROVIDERS: PCP Family Medicine; Visit Provider Physician Assistant
DX: R07.9 Chest pain, unspecified (principal); R06.09 Other forms of dyspnea; R60.9 Edema, unspecified; E66.01 Morbid (severe) obesity due to excess calories; F32.1 Major depressive disorder, single episode, moderate; I10 Essential (primary) hypertension; S06.9X1S Unspecified intracranial injury with loss of consciousness of 30 minutes or less, sequela
CPT/HCPCS: 93306; 93976

== ENCOUNTER → 2019-12-13 07:27 | Outpatient (CLI) | payer MEDICARE, OTHER, SELFPAY ==
--- NOTE | 2019-12-13 07:28 | US_ITS ---
APPROVED REPORT Exam Type: Lower Extremity Segmental Pressures Casing Blower: Annabella Sibley BULB GROWER Indications Claudication: Risk Factors Hypertension Obesity Pressures/Indices Right Indices Left Indices Brachial 139.00 mmHg Brachial 149.00 mmHg Low Thigh 161.00 mmHg 1.08 Low Thigh 153.00 mmHg 1.03 Calf 164.00 mmHg 1.10 Calf 178.00 mmHg 1.19 Ankle(PT) 169.00 mmHg 1.13 Ankle(PT) 175.00 mmHg 1.17 Ankle(DP) 163.00 mmHg 1.09 Ankle(DP) 164.00 mmHg 1.10 Digit 113.00 mmHg 0.76 Digit 119.00 mmHg 0.80 Findings R GRIS 1.1 L GRIS 1.1 R TBI 0.8 L TBI 0.8 Mildly abnormal bilateral ABIs NORMAL PULSES NORMAL WAVEFORMS Conclusion R GRIS 1.1 L GRIS 1.1 R TBI 0.8 L TBI 0.8 NORMAL PULSES NORMAL WAVEFORMS Electronically signed by : Grace Spicer, 12/14/2019 09:03:25
--- NOTE | 2019-12-13 07:34 | NM_ITS ---
APPROVED REPORT Exam: Nuclear Stress Test Indication: Chest pain, SOB, Syncope, Fatigue, HTN, Family history Patient Location: Outpatient Stress Tech: Erma Moyer [place] Tech:Vanessa Castillo, ARRT, RT (R)(N) Ht: 5 ft 3 in Wt: 215 lbs Bra Size: 40G HR: 57 bpm BP: 139/77 mmHg BSA: 1.99 m2 BMI: 38.0 History: Chest pain, SOB, Syncope, Fatigue, HTN, Family history Procedure: Patient received a 0.4 mg of intravenous Lexiscan, resting heart rate 57 bpm, resting blood pressure 139/77 mmHg, with Lexiscan maximum heart rate achived was 68 bpm which is Less than 85 % of the maximum predicted heart rate and blood pressure was 130/73 mmHg. Electrocardiogram Resting electrocardiogram showed sinus rhythm, with Lexiscan there is less than 1.[address] segment depression noted from the baseline EKG. The EKG portion of the Lexiscan Myoview is nondiagnostic. Cardiac Stress and Resting SPECT Images: Cardiac Stress and Resting SPECT images were obtained using technetium 99m Myoview 28.9 mCi stress and 10.05 mCi at rest. Gated SPECT for analysis of segmental wall motion and calculation of the ejection fraction also done. Cardiac stress and resting SPECT images show fixed defect involving the anterior apical and anteroseptal wall with normal jacy gated SPECT is likely secondary to soft tissue attenuation, no reversible ischemia seen. Computer derived ejection fraction is 61% with no regional wall motion abnormality. This study is technically limited due to patient's body habitus. Conclusion: 1. The EKG portion of the Lexiscan Myoview is nondiagnostic. 2. Scintigraphic evidence of fixed defect involving the anterior, apical and anteroseptal wall with normal contractility gated SPECT is likely secondary to soft tissue attenuation, no reversible ischemia seen. Computer derived ejection fraction 61% with no regional wall motion abnormality. This study is technically limited due to patient's body habitus. 3. Likely normal Lexiscan Myoview study. Electronically signed by : Jone Christian, 12/14/2019 12:12:39
--- NOTE | 2019-12-13 07:34 | CA_ITS ---
APPROVED REPORT Exam: Pharmacologic Technologist: Erma Moyer Ht: 5 ft 3 in Wt: 218 lbs BSA: 2.01 m2 HR: 57 bpm BP: 139/77 mmHg Indications: Shortness of Air, Abnormal EKG Medical History Medications: Amlodipine,,,,, Lisinopril,,,,, HCTZ,,,,, Carvedilol,,,,, Buspirone,,,,, ClonAZEPAM,,,,, Cyclobenzaprine,,,,, Venlafaxine,,,,, MeLATONIN,,,,, Flucticasone,,,,, Stress Test Details Test: LEXISCAN HR Resting HR: 59 bpm Max Heart Rate (APMHR): 160 bpm Max HR Achieved: 75 bpm Target HR (85% APMHR): 136 bpm % of APMHR: 46 Recovery HR: 64 bpm BP Resting BP: 139.0/77.0 mmHg Max BP: 139.0/77.0 mmHg Recovery BP: 135.0/72.0 mmHg ECG Clinical Exercise duration: 04:06 min Highest Stage Achieved: Stress ECG Conclusion Resting ECG: Sinus bradycardia, otherwise normal. Symptoms: Chest pressure, shortness of air, hot, mild stomach discomfort Arrhythmias/Ectopy: None ST-T Changes: No significant changes Conclusion: Unremarkable Lexiscan stress. Myoview images reported separately. Electronically signed by : Jone Christian, 12/14/2019 11:02:51
--- NOTE | 2019-12-13 07:48 | HMH.ITSHM ---
Current Home Medications as stated by this patient Jenni Curry or senior patient account representative. []VENLAFAXINE MELATONIN LISINOPRIL HCTZ FLUTICASONE CYCLOBENZAPRINE CLONAZEPAM CARVEDILOL BUSPIRONE AMLODIPINE
== END ==
PROVIDERS: PCP Family Medicine; Visit Provider Nurse Practitioner Family
DX: I10 Essential (primary) hypertension (principal); M79.661 Pain in right lower leg; M79.662 Pain in left lower leg; R06.09 Other forms of dyspnea; R20.9 Unspecified disturbances of skin sensation; R60.0 Localized edema; R94.31 Abnormal electrocardiogram [ECG] [EKG]; R09.89 Other specified symptoms and signs involving the circulatory and respiratory systems
CPT/HCPCS: 78452; 93017; 93923; A9502; J2785

== ENCOUNTER 2019-12-17 13:42 | Emergency (ER) | payer MEDICARE, OTHER, SELFPAY ==
--- NOTE | 2019-12-17 13:48 | XR_ITS ---
PROCEDURE: XR KNEE RT 3V Patient Age:59Y CLINICAL INDICATION: fall fell on baby gate Wednesday morning 2 day ago.. Right knee pain COMPARISON: XR TIBIA FIBULA RT 2V from 12/17/2019 FINDINGS: Right tibia/fibula: AP and lateral views Right knee.3: View AP lateral and oblique On close inspection on available AP views of the knee from there is suggestion of a very subtle lucent line which passes cup like fashion beneath both tibial spines exiting on either side of the tibial spines- this is seen on both the AP lower leg study as well as the AP knee exam. This appearance along with the small suspected joint effusion raises significant concern of a nondisplaced hairline fracture here.. The joint space well maintained at the knee with normal relationships at knee on these views Recommend orthopedic follow-up on Wednesday. MRI warranted Right lower leg: The remainder tibia and fibula intact and satisfactory. Bones well mineralized. Tiny 4 mm area of exostosis or calcification at insertional site seen at medial aspect tibial shaft noted and not of significance. Two views of ankle included appears satisfactory IMPRESSION: . Suspect very subtle nondisplaced hairline fracture-passing beneath both tibial spines.. Small knee joint effusion associated . Recommend orthopedic follow-up and likely MR knee to further evaluate IMPRESSION: Subtle nondisplaced hairline fracture passing beneath tibial spines, with small joint effusion Recommend orthopedic follow-up and may warrant MR knee to further evaluate Dictated by: Chris Mcgrath MD 12/17/2019 17:19 Electronically signed by Chris Mcgrath MD in [place] 12/17/2019 17:19
--- NOTE | 2019-12-17 13:49 | XR_ITS ---
PROCEDURE: XR TIBIA FIBULA RT 2V Patient Age:59Y CLINICAL INDICATION: fall. Patient fell on baby gate on Wednesday morning 2 days ago but now right knee pain/right lower leg pain COMPARISON: ANKR3 ANKLE-RT-3 VIEWS from 03/23/2017 XR KNEE RT 3V from 12/17/2019 FINDINGS: Right tibia/fibula: AP and lateral views Right knee.3: View AP lateral and oblique On close inspection on available AP views of the knee from there is suggestion of a very subtle lucent line which passes cup like fashion beneath both tibial spines exiting on either side of the tibial spines- this is seen on both the AP lower leg study as well as the AP knee exam. This appearance along with the small suspected joint effusion raises significant concern of a nondisplaced hairline fracture here.. The joint space well maintained at the knee with normal relationships at knee on these views Recommend orthopedic follow-up on Wednesday. MRI warranted Right lower leg: The remainder tibia and fibula intact and satisfactory. Bones well mineralized. Tiny 4 mm area of exostosis or calcification at insertional site seen at medial aspect tibial shaft noted and not of significance. Two views of ankle included appears satisfactory IMPRESSION: IMPRESSION: Suspect subtle nondisplaced hairline fracture passing beneath tibial spines, with small joint effusion Recommend orthopedic follow-up and may warrant MR knee to further evaluate The shaft of tibia and fibula and remainder right tibia/fibula otherwise unremarkable Dictated by: Chris Mcgrath MD 12/17/2019 21:45 Electronically signed by Chris Mcgrath MD in [place] 12/17/2019 21:45
[2019-12-17 14:11] VITALS: BP 126/74; PULSE 68; RESP 19; TEMP 36.8; O2SAT 98; BMI 38.0
--- NOTE | 2019-12-17 14:30 | HMH.EDUTC ---
[facility] [place] Clinical Impression: Fracture, tibial plateau Qualifiers: Encounter type: initial encounter Fracture type: closed Laterality: right Qualified Code(s): S82.141A - Displaced bicondylar fracture of right tibia, initial encounter for closed fracture Disposition: Home, Self-Care Condition on Discharge: Good Instructions: DI for Tibial Plateau Fracture Additional Instructions: ice 20 mins remove may repeat every hour elevate follow up with ortho call tomorrow for appointment if symptoms worsen return or be seen in ed no weight bearing until seen by ortho Referrals: Bentley Watson MD [Primary Care Provider] - Alfred Javier MD [Staff Physician] - Time of Disposition: 15:02 Medical Decision Making - Pravin Inquiry Pt receiving controlled substance: No Vital Signs: 12/17/19 14:11 Temperature 98.2 F Temperature Source Oral Pulse Rate [Right Brachial] 68 Respiratory Rate 19 Blood Pressure [Right Arm] 126/74 Blood Pressure Mean [Right Arm] 91 Blood Pressure Source [Right Arm] Automatic Cuff Blood Pressure Position [Right Arm] Sitting 02 Sat by Pulse Oximetry 98 Oxygen Delivery Method Room Air Orders (Tests/Meds): ORDERS Category Date Time Status XR knee RT 3V Stat Exams 12/17/19 13:48 Taken XR tibia fibula RT 2V Stat Exams 12/17/19 13:49 Taken - Radiology Data #1 Image(s): Knee Image Reviewed: Yes I reviewed the patient's radiology image Preliminary Findings: Abnormal top of tibia on oblique view poss fx Medical Decision Narrative: pt refuses crutches states family has a wc she is going to use [facility] HPI - General Chief complaint: Urgent [facility] Stated complaint: AO 12/15/19 fall, knee and leg pain Time Seen by Provider: 12/17/19 14:30 Mode of Arrival: Ambulatory Source of Information: Patient Limitations: No Limitations Description of Symptoms (Recalled from Triage Doc. by RN): PATIENT C/O RIGHT KNEE AND LEG PAIN AFTER FALLING WEDNESDAY WHILE STEPPING OVER A BABY GATE HEENT Symptoms (Recalled from RN notes): No Resp Symptoms (Recalled from RN notes): No Skin Symptoms (Recalled from RN notes): No MS Symptoms (Recalled from RN notes): Yes Functional Status (Recalled from RN notes): WNL - History of Present Illness Provider Complaint: 59 yr old female presents for rt knee pain. pt states she stepped over a baby gate when she caught her foot and fell on her knees,. since then has been having rt knee pain with pain with bearing wt - Related Data Home Medications Medication Instructions Recorded Confirmed fluticasone propionate 50 50 mcg INTRANASAL QDAY PRN 05/18/17 11/22/19 mcg/actuation nasal spray,suspension buspirone 5 mg tablet 15 mg PO BID tab 07/12/19 11/22/19 clonazepam 1 mg tablet 0.5 mg PO QHS tab 07/12/19 11/22/19 cyclobenzaprine 10 mg tablet 10 mg PO Q8H PRN 07/12/19 11/22/19 melatonin 3 mg tablet 3 mg PO QHS tab 07/12/19 11/22/19 venlafaxine 75 mg capsule,extended 150 mg PO QDAY cap 07/12/19 11/22/19 release 24 hr Previous Rx's Medication Instructions Recorded amlodipine 5 mg tablet 5 mg PO DAILY #30 tab 11/06/19 carvedilol 25 mg tablet 25 mg PO BID #60 tab 11/06/19 hydrochlorothiazide 25 mg tablet 25 mg PO DAILY #30 tab 11/06/19 lisinopril 40 mg tablet 40 mg PO DAILY #30 tab 11/08/19 Allergies Allergy/AdvReac Type Severity Reaction Status Date / Time cephalexin [From KEFLEX] Allergy Unknown I-RASH Verified 11/22/19 10:12 - Worker's Comp Is this a Worker's Comp case?: No [facility] History - Hepatitis A Screen Drug use history?: No High risk sexual behaviors?: No History of sexually transmitted infection?: No Currently employed?: No Childcare worker?: No Do you have indoor plumbing?: Yes Do you have electricity?: Yes Attestation statement:: This patient has been screened for Hepatitis A risk factors. I have reviewed the patient's past medical history: Yes Medical History: Reports:: Anxiety, Depression, Hyper
[2019-12-17 15:08] VITALS: BP 117/70; PULSE 72; RESP 21; TEMP 36.8; O2SAT 98
== END 2019-12-17 15:10 | disposition home or self-care (01) ==
PROVIDERS: Emergency Provider Nurse Practitioner Family; PCP Family Medicine
DX: S82.141A Displaced bicondylar fracture of right tibia, initial encounter for closed fracture (principal); W18.09XA Striking against other object with subsequent fall, initial encounter; Y92.019 Unspecified place in single-family (private) house as the place of occurrence of the external cause; I10 Essential (primary) hypertension; F41.8 Other specified anxiety disorders; Z88.1 Allergy status to other antibiotic agents; Z90.79 Acquired absence of other genital organ(s)
CPT/HCPCS: 29505; G0463; 73562; 73590; 99202

== ENCOUNTER → 2019-12-22 09:03 | Outpatient (CLI) | payer MEDICARE, OTHER, SELFPAY ==
--- NOTE | 2019-12-22 09:15 | US_ITS ---
PROCEDURE: US ABDOMEN LIMITED CLINICAL INDICATION: ABN RESULTS OF LIVER FUNCTION STUDIES COMPARISON: No exams were available for comparison FINDINGS: PANCREAS: Pancreas is not well delineated due to overlying bowel gas. CT or MRI without and with contrast with pancreatic protocol may provide further evaluation if clinically desired. LIVER: No focal liver lesions demonstrated. Homogeneous echogenicity. No intrahepatic biliary ductal dilatation evident. There is appropriate direction of blood flow within a non dilated portal vein RIGHT KIDNEY: Unremarkable. Normal size and echogenicity. No hydronephrosis GALLBLADDER: No gallstones, gallbladder wall thickening, pericholecystic fluid, or biliary dilatation. IMPRESSION: Unremarkable limited abdominal ultrasound as detailed above disc Pancreas is not well delineated due to overlying bowel gas. CT or MRI without and with contrast with pancreatic protocol may provide further evaluation if clinically desired. Dictated b Nathanael Ayala MD 12/22/2019 10:39 Nathanael Ayala MD in [place] 12/22/2019 10:39
== END ==
PROVIDERS: PCP Family Medicine; Visit Provider Nurse Practitioner Family
DX: R94.5 Abnormal results of liver function studies (principal); R19.4 Change in bowel habit; R19.7 Diarrhea, unspecified; R14.0 Abdominal distension (gaseous); R11.0 Nausea; F10.10 Alcohol abuse, uncomplicated; Z12.11 Encounter for screening for malignant neoplasm of colon
CPT/HCPCS: 76705

== ENCOUNTER → 2019-12-26 12:47 | Outpatient (CLI) | payer MEDICARE, OTHER, SELFPAY ==
--- NOTE | 2019-12-26 13:07 | XR_ITS ---
PROCEDURE: XR KNEE RT 3V CLINICAL INDICATION: Fracture COMPARISON: No exams were available for comparison FINDINGS: No fracture or dislocation. No lytic or blastic change. There is normal mineralization. The joint spaces are well-preserved. No significant degenerative/arthritic changes. No erosive changes evident. There may be a small effusion in the suprapatellar bursa. Other findings:None. IMPRESSION: Possible small joint effusion otherwise negative right knee Dictated Dr. Hardy Vazquez MD 12/26/2019 13:33 Dr. Hardy Sneed MD in [place] 12/26/2019 13:33
--- NOTE | 2019-12-26 13:07 | XR_ITS ---
PROCEDURE: XR ANKLE RT MIN 3V CLINICAL INDICATION: pain in ankle COMPARISON: CR FTR3 FOOT-RT-3 VIEWS from 05/03/2017 FINDINGS: There is mild diffuse soft tissue swelling laterally. The medial and lateral malleolus appear intact. There is minor spurring of the tip of the lateral malleolus. The overall ankle mortise appears normal. Orthopedic hardware is again noted fusing the bases of the 1st and 2nd metatarsals and 1st and 2nd cuneiform bones. There is a moderate size spur of the calcaneus at the insertion of the plantar tendon. There is a small spur of the anterior superior border of the calcaneus at the calcaneal navicular articulation. IMPRESSION: Possible mild soft tissue swelling laterally, no acute fracture seen Dictated Dr. Hardy Vazquez MD 12/26/2019 13:38 Dr. Hardy Sneed MD in [place] 12/26/2019 13:38
== END ==
PROVIDERS: PCP Family Medicine; Visit Provider Orthopaedic Surgery
DX: S82.143A Displaced bicondylar fracture of unspecified tibia, initial encounter for closed fracture (principal); M25.571 Pain in right ankle and joints of right foot
CPT/HCPCS: 73562; 73610

== ENCOUNTER 2019-12-26 14:21 | Outpatient (RCR) | payer MEDICARE, OTHER, SELFPAY | END 2019-12-26 15:00 | disposition home or self-care (01) | LOC: PT 14:21 | PROVIDERS: Visit Provider Orthopaedic Surgery | DX: M25.571 Pain in right ankle and joints of right foot; S82.141A Displaced bicondylar fracture of right tibia, initial encounter for closed fracture | CPT/HCPCS: 97760 ==

== ENCOUNTER → 2019-12-28 11:36 | Outpatient (CLI) | payer MEDICARE, OTHER, SELFPAY ==
--- NOTE | 2019-12-28 11:41 | CT_ITS ---
PROCEDURE: CT KNEE RT WO CON CLINICAL HISTORY: tibial plateau FX The COMPARISON: CR XR KNEE RT 3V from 12/26/2019 TECHNIQUE: Axial images obtained with sagittal and coronal reformats. All CT scans at the facility use one or more dose reduction, viz: automated exposure control, ma/kV adjustment per patient size (including targeted exams where dose is matched to indication, i.e. head), or iterative reconstruction technique. FINDINGS: There is a comminuted fracture involving the central aspect of the proximal tibia. Fracture is mostly U shaped extending along the lateral and medial aspect of the tibial spines centrally and posterior of the proximal tibia there is a mildly displaced fragment along the posterior aspect of the proximal tibia. This fragment measures 13 mm and is displaced posteriorly by 4 mm. This appears to represent the area insertion of the posterior cruciate ligament. There is knee joint effusion. There is mild generalized edema about the knee. IMPRESSION: Comminuted fracture involving the interspinous region of the proximal tibia. There is an avulsed fragment along the posterior aspect of the proximal tibia centrally at the area of insertion of the posterior cruciate ligament with minimal displacement Knee joint effusion Dictated by: Nathanael Ayala MD 12/29/2019 10:52 Nathanael Ayala MD in [place] 12/29/2019 10:52
== END ==
PROVIDERS: PCP Family Medicine; Visit Provider Orthopaedic Surgery
DX: M25.561 Pain in right knee (principal); S82.143A Displaced bicondylar fracture of unspecified tibia, initial encounter for closed fracture
CPT/HCPCS: 73700

== ENCOUNTER → 2020-01-18 11:50 | Outpatient (CLI) | payer MEDICARE, OTHER, SELFPAY ==
--- NOTE | 2020-01-18 11:54 | XR_ITS ---
PROCEDURE: XR KNEE RT 3V CLINICAL INDICATION: right tibial plateau fracture fu COMPARISON: CR XR KNEE RT 3V from 12/17/2019 CR XR KNEE RT 3V from 12/26/[address] KNEE RT WO CON from 12/28/2019 FINDINGS: There is a nondisplaced fracture of the interspinous region of the proximal tibia U shaped in nature. Knee joint effusion is once again noted but appears somewhat less prominent. The joint spaces are well-preserved. No significant degenerative/arthritic changes. No erosive changes evident. Other findings:None. IMPRESSION: No change nondisplaced nondisplaced fracture of the interspinous region of the proximal tibia Dictated by: Nathanael Ayala MD 01/18/2020 16:30 Nathanael Ayala MD in [place] 01/18/2020 16:30
[2020-01-18 14:36] LABS: Basophils # 0.1 K/mm3 (0-0.2); Basophils % 1.5 % (0.1-2.0); Eosinophils # 0.2 K/mm3 (0.0-0.4); Eosinophils % 2.7 % (0.1-12.0); Hemoglobin 15.7 g/dL (12.2-16.2); Lymphocytes # 2.3 K/mm3 (0.7-4.5); Lymphocytes % 27.6 % (10-50); Mean Corpuscular HGB Conc 34.9 g/dL (31.8-35.4); Mean Corpuscular Hemoglobin 32.1 pg (27.0-31.2); Mean Corpuscular Volume 91.9 fl (81-99); Mean Platelet Volume 7.4 fl (7.4-10.4); Monocytes # 0.5 K/mm3 (0.1-1.0); Monocytes % 5.6 % (1.7-9.3); Neutrophils # 5.2 K/mm3 (1.8-7.8); Neutrophils % 62.6 % (37.0-80.0); Platelet Count 224 K/mm3 (142-424); Red Blood Count 4.89 M/mm3 (4.20-5.40); Red Cell Distribution Width 13.3 % (11.5-17.5); White Blood Count 8.3 K/mm3 (4.8-10.8)
[2020-01-18 14:56] LABS: INR 1.08 (0.9-1.1)
[2020-01-18 15:05] LABS: Chloride 98 mmol/L (98-107)
[2020-01-18 15:06] LABS: Potassium 4.7 mmoL/L (3.5-5.1); Sodium 135 mmol/L (136-145)
[2020-01-18 15:08] LABS: Alanine Aminotransferase 98 U/L (12-78); Alkaline Phosphatase 155 U/L (38-126); Aspartate Amino Transferase 114 U/L (14-36); Bilirubin,Total 1.1 mg/dl (0.2-1.3); Blood Urea Nitrogen 14 mg/dl (7-17); Estimated Glomerular Filt Rate 126 ml/min (>60); GFR (African American) 152 ML/MIN (>60)
[2020-01-18 15:09] LABS: Albumin/Globulin Ratio 1.3 (1.1-1.8); Anion Gap 11.7 mEq/L (5-15); Calcium 9.5 mg/dl (8.4-10.2); Carbon Dioxide 30 mmol/L (22.0-30.0); Globulin 3.1 g/dL (1.3-3.2); Glucose 135 mg/dl (74-100); Iron 122 ug/dL (37-170); Total Protein,Serum 7.1 g/dl (6.3-8.2)
[2020-01-18 15:18] LABS: Total Iron Binding Capacity 321 ug/dL (265-497)
[2020-01-18 15:46] LABS: Ferritin 246 ng/ml (11.1-264)
[2020-01-19 17:12] LABS: Actin (Smooth Muscle) Antibody 4 Units (0-19)
[2020-01-19 17:12] LABS: Ceruloplasmin 26.5 mg/dL (19.0-39.0); Mitochondrial (M2) Antibody <20.0 Units (0.0-20.0)
[2020-01-19 18:01] LABS: Immunoglobulin A, Qn 270 mg/dL (87-352); Immunoglobulin G, Qn 1149 mg/dL (586-1602)
[2020-01-20 09:42] LABS: Angiotensin Converting Enzyme <15 U/L (14-82); Deamidated Gliadin Abs, IgA 2 units (0-19); Endomysial IgA Antibody Negative (Negative); Immunoglobulin M, Qn 171 mg/dL (26-217); Liver-Kidney Microsomal Ab <1.0 Units (0.0-20.0)
[2020-01-20 09:43] LABS: Reticulin IgA Antibody Negative titer (Neg:<1:2.5)
[2020-01-24 06:16] LABS: ALT (SGPT) P5P 90 IU/L (0-40); AST (SGOT) P5P 109 IU/L (0-40); Alpha 2-Macroglobulins, Qn 246 mg/dL (110-276); Apolipoprotein A-1 157 mg/dL (116-209); Bilirubin, Total 0.7 mg/dL (0.0-1.2); Cholesterol, Total 180 mg/dL (100-199); GGT 255 IU/L (0-60); Glucose 133 mg/dL (65-99); Haptoglobin 95 mg/dL (33-346); NASH Score 0.75 (0.25); Steatosis Score 0.85 (0.00-0.30); Triglycerides 107 mg/dL (0-149)
[2020-01-26 17:55] LABS: Alpha-1-Antitrypsin 152 mg/dL (101-187)
[2020-02-05 09:12] LABS: Antinuclear Antibodies (ANA) Negative
[2020-02-05 09:13] LABS: Deamidated Gliadin Abs, IgG 4
[2020-02-05 09:15] LABS: Tissue Transglutaminase IgA Ab <2; Tissue Transglutaminase IgG Ab 2
[2020-05-22 15:00] LABS: Coronavirus 19 IgG Antibody Negative (Negative); Coronavirus 19 IgM Antibody Negative (Negative)
== END ==
PROVIDERS: Nurse Practitioner Family; PCP Family Medicine; Visit Provider Orthopaedic Surgery
DX: S82.143A Displaced bicondylar fracture of unspecified tibia, initial encounter for closed fracture (principal); R74.8 Abnormal levels of other serum enzymes; R94.5 Abnormal results of liver function studies
CPT/HCPCS: 36415; 73562; 80053; 81256; 82103; 82104; 82164; 82390; 82728; 82784; 83516; 83540; 83550; 85025; 85610; 86038; 86255; 86256; 86328; 86334; 86376

== ENCOUNTER 2020-01-19 08:04 | Day surgery (SDC) | payer MEDICARE, SELFPAY ==
[2020-01-17 11:16] VITALS: BMI 38.0
[2020-01-19] VITALS (7 sets, daily range): BP systolic 97–115; BP diastolic 57–66; PULSE 57–67; RESP 16–18; TEMP 36.2–36.3; O2SAT 92–99
--- NOTE | 2020-01-19 08:50 | P.PN_ITS ---
[facility] Anesthesia Checklist - Patient Identification Patient Identification: Arm Band - Structural Data Admitted From: Home Planned Operative Procedure/s: colonoscopy Consent for Planned Operative Procedure(s) Verified: Yes Verified Documents: Surgical Consent, History and Physical - NPO Status Verified Time NPO: 00:00 - Additional verifications Anesthesia Reactions: No Hx Blood Transfusions: No - Airway Assessment C-Spine Mobility Assessed: Yes (mp2) TMJ Mobility Assessed: Yes Dentition: Good Dentition - Neurological Assessment Level of Consciousness: Awake, Alert - Anesthesia Plan Anesthesia Risk discussed: Yes Anesthesia Plan: Verified ASA Class: III Anesthesia Type: MAC [facility] History I have reviewed the patient's past medical history: Yes Medical History: Reports:: Anxiety, Depression, Hypertension Denies:: Cancer, Diabetes Mellitus Type 1, Diabetes Mellitus Type 2, Internal Pacemaker, MRSA, Seizures *Have you ever received a pneumonia vaccine?: No *Have you received a flu vaccine this season?: No Other Medical History: Reports: Arthritis, Other Anesthesia experience/problems:: nac Laterality Cases: Right: Other, Bilateral: Tonsillectomy Other Surgeries: Yes: Hysterectomy-Total, Hysterectomy-Partial, Other. No: Pacemaker Amputation: No Fractures: Yes - *Social History Last grade of school completed: High school graduate Smoking Status: Never smoker Tobacco Type: cigarettes # Packs/Day (cigarettes): 0 #Yrs smoked (if former smoker): 0 Alcohol Intake: current Alcohol Intake Frequency:: 0-2 drinks per day Substance Use Type: denies use *Occupational Status:: disabled Housing: house Household Members: spouse *Travel in the last 8 weeks: None - Psychiatric History Pschychiatric History:: Reports:: Anxiety, Depression Family Hx:: Coronary Artery Disease, Hypertension
--- NOTE | 2020-01-19 09:55 | P.PCN_ITS ---
[facility] Procedure Note Procedure Note:: Colonoscopy Procedure Report: Colonoscopy with cold snare polypectomy Endoscopist: Shin Slater II, MD Referring physician: Columba CERON Date of Procedure: January 19, 2020 Equipment: Olympus 180 variable stiffness pediatric colonoscope Sedation: MAC sedation Indication: Mrs. Curry is a 59-year-old female who is here for screening colonoscopy. The patient does have some chronic constipation and she was taking Senna Plus with a stool softener. She was having urgency with this. She is imp roved now that she takes combine fiber bowel regimen (MiraLAX plus Metamucil) and probiotic. The patient reports no rectal bleeding, abdominal pain, weight loss or change in bowel habits. She reports no family history of colon cancer. She did have a colonoscopy about 10 years ago. She does get some gassiness and bloating intermittently. She also has elevated liver chemistries. Procedure: Prior to the procedure, a history and physical exam was performed, and patient's medications and allergies were reviewed. The risks, benefits and alternatives of the sedation and procedure were discussed with the patient. All questions were answered and informed consent was obtained. The patient was brought to the procedure room. Patient identification and proposed procedure were verified by the physician and the nurse. The patient was placed in a left lateral decubitus position and the scope was passed under direct vision. Throughout the procedure, the patient's blood pressure, pulse, and oxygen saturations were monitored continuously. The colonoscopy was accomplished without difficulty. The patient tolerated the procedure well. Findings: On digital rectal examination there was normal rectal tone. There were no external hemorrhoids. The colonoscope was introduced through the anal canal to the rectum and advanced to the cecum. The ileocecal valve and appendiceal orifice were identified. The scope was advanced a short distance into the ileum which appeared grossly normal. The scope was then withdrawn into the colon. The cecum, ascending and transverse colon were normal. There were 3 colon polyps (descending x2 (3 and 4 mm) and sigmoid x1 (4 mm)) which were removed via cold snare polypectomy. The remainder of the rectum was normal. There were no other mucosal abnormalities identified. Upon retroflexion within the rectum there were grade 1-2 internal hemorrhoids.The preparation was excellent throughout with Ravenel Preparation Score of 9. The cecal time was 13 minutes. Impression: 1. Colonic polyps x3 2. Grade 1-2 internal hemorrhoids Plan: I will follow up the polyp pathology and recommend repeat colonoscopy again in 5-7 years based upon the polyp histology. I would encourage continuation of the fiber bowel regimen on a long-term daily maintenance basis.
== END 2020-01-19 10:48 | disposition home or self-care (01) ==
LOC: OUTP 08:07
PROVIDERS: PCP Family Medicine; Visit Provider Internal Medicine Gastroenterology
PROC: 0DJD8ZZ Inspection of Lower Intestinal Tract, Via Natural or Artificial Opening Endoscopic (ICD-10-PCS; CPT 45378; principal; 2020-01-19 09:00)
DX: Z12.11 Encounter for screening for malignant neoplasm of colon (principal); K63.5 Polyp of colon; K64.0 First degree hemorrhoids; I10 Essential (primary) hypertension; F41.9 Anxiety disorder, unspecified; F32.9 Major depressive disorder, single episode, unspecified; Z90.89 Acquired absence of other organs; Z90.710 Acquired absence of both cervix and uterus; Z82.49 Family history of ischemic heart disease and other diseases of the circulatory system; E66.9 Obesity, unspecified; Z68.38 Body mass index [BMI] 38.0-38.9, adult; Z79.899 Other long term (current) drug therapy
CPT/HCPCS: 45385; 88305

== ENCOUNTER → 2020-02-16 10:43 | Outpatient (CLI) | payer MEDICARE, SELFPAY ==
--- NOTE | 2020-02-16 10:51 | XR_ITS ---
PROCEDURE: XR KNEE RT 3V Referring Doctor: Constance Short Patient Age:59Y CLINICAL INDICATION: Rt tibial plateau the COMPARISON: CR XR KNEE RT 3V from 12/17/2019 CR XR KNEE RT 3V from 12/26/[address] KNEE RT WO CON from 12/28/2019 CR XR KNEE RT 3V from 01/18/2020 FINDINGS: Healing nondisplaced fracture involving interspinous region of the proximal tibia. There is some new bone formation seen posteriorly along the tibia associated with healing of site of of slight avulsion fragment related to the posterior cruciate ligament attachment which appears to be the main fracture fragment on the December 2019 CT knee but On the frontal projection the medial and lateral compartments appears satisfactory and the tibial spines satisfactory position. The joint effusion has diminished but scant joint effusion remains but IMPRESSION: Healing fracture interspinous region. Callus formation/new bone formation is most evident on this plain film along the posterior aspect the tibia at the site of the PCL attachment avulsion fragment. Dictated by: Chris Mcgrath MD 02/16/2020 12:07 Chris Mcgrath MD in [place] 02/16/2020 12:07
== END ==
PROVIDERS: PCP Family Medicine; Visit Provider Orthopaedic Surgery
DX: S82.141A Displaced bicondylar fracture of right tibia, initial encounter for closed fracture (principal)
CPT/HCPCS: 73562

== ENCOUNTER → 2020-03-18 10:09 | Outpatient (CLI) | payer MEDICARE, SELFPAY ==
--- NOTE | 2020-03-18 10:16 | XR_ITS ---
PROCEDURE: XR KNEE RT 3V CLINICAL INDICATION: RT tibial plateau FX FU COMPARISON: CR XR KNEE RT 3V from 12/17/2019 CR XR KNEE RT 3V from 12/26/[address] KNEE RT WO CON from 12/28/2019 CR XR KNEE RT 3V from 01/18/2020 CR XR KNEE RT 3V from 02/16/2020 FINDINGS: Tibial plateau fracture line barely visible in the inter spinous region of the proximal tibia posteriorly with good alignment.. Mild osteoarthritic change. Other findings:None. IMPRESSION: No change good alignment healing tibial plateau fracture centrally and posteriorly Dictated by: Nathanael Aayla MD 03/18/2020 11:54 Nathanael Ayala MD in [place] 03/18/2020 11:54
== END ==
PROVIDERS: PCP Family Medicine; Visit Provider Orthopaedic Surgery
DX: S82.143A Displaced bicondylar fracture of unspecified tibia, initial encounter for closed fracture (principal)
CPT/HCPCS: 73562

== ENCOUNTER 2020-07-25 10:00 | Outpatient (RCR) | payer MEDICARE, SELFPAY ==
--- NOTE | 2020-07-09 14:00 | HMH.PTOPEV ---
PT Outpatient Evaluation Rehab PT Outpatient Evaluation Start: 07/09/20 13:48 Freq: Status: Active Protocol: Document 07/09/20 13:48 [place] (Rec: 07/09/20 14:00 KENNY [id number]) Electronically Signed By Uli Espinoza, PT 07/09/20 13:48 Outpatient Therapy Subjective History Subjective History Patient is a 59 year old female presenting to outpatient PT with reports of R knee pain S/P R tibial plateau fracture after a fall at home 12/17/19. Patient report NWB for approx 3 months . Most recent imaging indicates good alignment and healing. Comorbidities include hx of multiple LS/CS surgeries, HTN L wrist ORIF and R foot surgery. Chief Complaint Pain,Stiff,Catches/Locks Symptom Type Sharp,Burning Symptoms Relieved By Rest/Positioning,Elevation Symptoms Aggravated By Standing,Physical Activity, Walking Prior Functional Limitations None Current Functional Limitations Lifting,Housework,Standing, Squatting,Recreation Activity, Walking,Stairs,Balance,Bending /Stooping Symptom Description Intermittent Level of pain today (0-10) 1 Pain scale - at its best (0-10) 0 Pain scale - at its worst (0-10) 3 Hip/Knee Eval Gait Observation General Gait Pattern Observation No Deviations/Normal Assistive Device Assistive Devices None / NA Palpation Tenderness right Knee Palpation Finding Tenderness Knee Palpation Overall Comment R lateral joint line MMT Hip Flexion Strength Grade 4- Good- Hip Abduction Strength Grade 3+ Fair+ Hip Adduction Strength Grade 4- Good- Hip Extension Strength Grade 3+ Fair+ Hip External Rotation Strength Grade 3+ Fair+ Hip Internal Rotation Strength Grade 3+ Fair+ Knee Extension Strength Grade 4- Good- Knee Flexion Strength Grade 4- Good- ROM Hip ROM Reason Not Measured Within Functional Limits Knee Extension Active Range of Motion ( 0 degrees) Knee Flexion Active Range of Motion ( 124 degrees) Special Tests Knee Anterior Marcy Test Negative Right Knee Pivot Shift Test Negative Right Knee Valgus Stress Test Negative Right Knee Varus Stress Test Negative Right Knee Irasema Test Negative Right Outpatient Therapy Assessment Impairments Problems/Impairmments P
== END 2020-07-25 10:05 | disposition home or self-care (01) ==
LOC: PT 10:00
PROVIDERS: PCP Family Medicine; Visit Provider Orthopaedic Surgery
DX: M79.661 Pain in right lower leg (principal); S82.101A Unspecified fracture of upper end of right tibia, initial encounter for closed fracture
CPT/HCPCS: 97010; 97014; 97110; 97112; 97140; 97163; G0283

== ENCOUNTER → 2020-08-07 13:12 | Outpatient (CLI) | payer MEDICARE, SELFPAY ==
--- NOTE | 2020-08-07 13:24 | US_ITS ---
PROCEDURE: US SOFT TISSUE HEAD AND NECK CLINICAL INDICATION: LUMP IN NECK COMPARISON: No exams were available for comparison FINDINGS: Lateral to the submandibular gland on the right there are 2 lymph nodes measuring 9 mm each. Nonspecific hypoechoic areas present in the right parotid gland medially measuring 6 mm. Additionally in the right neck there is a 1.7 cm lymph node. The left parotid gland and submandibular gland have an unremarkable appearance. 7 mm lymph node is demonstrated in left neck. IMPRESSION: Small bilateral lymph nodes in the neck. Nonspecific hypoechoic area in the right parotid gland possibly due to small intraparotid node. Stability may be confirmed with follow-up. Dictated by: Nathanael Ayala MD 08/07/2020 16:55 Nathanael Ayala MD in [place] 08/07/2020 16:55
== END ==
PROVIDERS: PCP Family Medicine; Visit Provider Nurse Practitioner Family
DX: R22.1 Localized swelling, mass and lump, neck (principal)
CPT/HCPCS: 76536

== ENCOUNTER → 2021-07-04 10:17 | Outpatient (CLI) | payer MEDICARE, SELFPAY ==
--- NOTE | 2021-07-04 10:29 | XR_ITS ---
FINAL REPORT CLINICAL HISTORY: COUGH,SOB,DIAPHORESIS,TACHYCADIA FINDINGS: TWO VIEWS OF THE CHEST The heart is normal in size. The mediastinum is unremarkable. The lungs are clear. There is no pneumothorax. There are mild degenerative changes of the spine. Postoperative changes are seen in the cervical spine. IMPRESSION: No acute cardiopulmonary process. Reviewed, Interpreted and Dictated by Reza Delgado III, MD Transcribed by Deedee Heaton Authenticated by Reza Delgado III, MD on 07/04/2021 11:41:[address] [facility]
[2021-07-04 11:27] LABS: Basophils # 0.1 K/mm3 (0-0.2); Basophils % 1.7 % (0.1-2.0); Eosinophils # 0.3 K/mm3 (0.0-0.4); Eosinophils % 3.6 % (0.1-12.0); Hematocrit 48.8 % (37.0-47.0); Hemoglobin 16.7 g/dL (12.2-16.2); Lymphocytes # 1.6 K/mm3 (0.7-4.5); Lymphocytes % 22.5 % (10-50); Mean Corpuscular HGB Conc 34.2 g/dL (31.8-35.4); Mean Corpuscular Hemoglobin 32.5 pg (27.0-31.2); Mean Corpuscular Volume 95.2 fl (81-99); Mean Platelet Volume 7.8 fl (7.4-10.4); Monocytes # 0.5 K/mm3 (0.1-1.0); Monocytes % 6.6 % (1.7-9.3); Neutrophils # 4.7 K/mm3 (1.8-7.8); Neutrophils % 65.5 % (37.0-80.0); Platelet Count 231 K/mm3 (142-424); Red Blood Count 5.13 M/mm3 (4.20-5.40); Red Cell Distribution Width 13.3 % (11.5-17.5); White Blood Count 7.1 K/mm3 (4.8-10.8)
[2021-07-04 11:52] LABS: D-Dimer 0.75 ug/mL (0.0-0.5)
[2021-07-04 12:33] LABS: Chloride 99 mmol/L (98-107); Sodium 132 mmol/L (136-145)
[2021-07-04 12:34] LABS: Potassium 4.9 mmoL/L (3.5-5.1)
[2021-07-04 12:36] LABS: Alanine Aminotransferase 87 U/L (12-78); Albumin Level 4.1 g/dl (3.5-5.0); Alkaline Phosphatase 184 U/L (38-126); Aspartate Amino Transferase 108 U/L (14-36); Bilirubin,Total 1.4 mg/dl (0.2-1.3); Blood Urea Nitrogen 14 mg/dl (7-17); Estimated Glomerular Filt Rate 73 ml/min (>60); GFR (African American) 88 ML/MIN (>60)
[2021-07-04 12:37] LABS: Albumin/Globulin Ratio 1.5 (1.1-1.8); Anion Gap 9.9 mEq/L (5-15); Calcium 8.5 mg/dl (8.4-10.2); Carbon Dioxide 28 mmol/L (22.0-30.0); Globulin 2.8 g/dL (1.3-3.2); Glucose 175 mg/dl (74-100); Total Protein,Serum 6.9 g/dl (6.3-8.2)
[2021-07-04 12:46] LABS: NT Pro Brain Natriuretic Pep. 83.3 pg/mL (0-125)
[2021-07-04 12:52] LABS: Troponin I < 0.01 ng/ml (0.00-0.034)
--- NOTE | 2021-07-04 15:15 | CT_ITS ---
FINAL REPORT CLINICAL HISTORY: ELEVATED D-DIMER,SOB; patient positive for Covid 3 weeks ago FINDINGS: Thin section axial CT images of the chest were obtained with contrast. 3D reformatted images were also obtained. This study was performed with techniques to keep radiation doses as low as reasonably achievable (ALARA). Individualized dose reduction techniques using automated exposure control or adjustment of mA and/or kV according to the patient''s size were employed. There is no evidence of pulmonary embolism. There is no evidence of thoracic aortic aneurysm or dissection. There is no evidence of mediastinal or hilar mass or adenopathy. There is no evidence of pulmonary mass or nodule. There is mild scar or atelectasis in the left lung base. There is a calcified granuloma in left lung base. Limited images of the upper abdomen demonstrate fatty infiltration of the liver. IMPRESSION: No evidence of pulmonary embolism. Fatty liver. Reviewed, Interpreted and Dictated by Reza Delgado III, MD Transcribed by Deedee Heaton Authenticated by Reza Delgado III, MD on 07/04/2021 04:10:[address] [facility]
== END ==
PROVIDERS: PCP Nurse Practitioner Family; Visit Provider Nurse Practitioner Family
DX: R06.02 Shortness of breath (principal); R00.0 Tachycardia, unspecified; R05.1 Acute cough; R61 Generalized hyperhidrosis; R07.89 Other chest pain
CPT/HCPCS: 36415; 71046; 71275; 80053; 83880; 84443; 84484; 85025; 85378; Q9967

== ENCOUNTER 2022-02-10 10:59 | Emergency (ER) | payer MEDICARE, SELFPAY ==
[2022-02-10 11:10] VITALS: BP 131/79; PULSE 73; RESP 18; TEMP 36.6; O2SAT 97; BMI 36.4
[2022-02-10 11:31] LABS: UTC Strep Screen (Rapid) Negative (Negative)
--- NOTE | 2022-02-10 11:46 | EXP.UTC ---
Discharge Plan Disposition Patient Disposition: Home, Self-Care Condition: Good Prescriptions Prescriptions: New amoxicillin-pot clavulanate 875-125 mg Tablet 1 tab PO Q12H 7 Days Qty: 14 0RF prednisone 20 mg tablet 20 mg PO BID Qty: 10 0RF No Action fluticasone propionate [Flonase Allergy Relief] 50 mcg/actuation spray,suspension 50 mcg INTRANASAL QDAY PRN (Reason: Allergic Reaction) venlafaxine [Effexor XR] 75 mg capsule,extended release 24hr 150 mg PO QDAY cyclobenzaprine 10 mg tablet 10 mg PO Q8H PRN (Reason: Pain) clonazepam 1 mg tablet 0.5 mg PO QHS melatonin 3 mg tablet 3 mg PO QHS Label Comments: TAKE ONE TABLET BY MOUTH EVERY DAY AT BEDTIME hydrochlorothiazide 25 mg tablet See Rx Instructions .ROUTE .COMPLEX Qty: 90 1RF Dose Instruction: TAKE ONE TABLET BY MOUTH EVERY DAY FOR FLUID Rx Instructions: TAKE ONE TABLET BY MOUTH EVERY DAY FOR FLUID amlodipine 5 mg tablet See Rx Instructions .ROUTE .COMPLEX Qty: 90 1RF Dose Instruction: TAKE ONE TABLET BY MOUTH EVERY DAY FOR BLOOD PRESSURE Rx Instructions: TAKE ONE TABLET BY MOUTH EVERY DAY FOR BLOOD PRESSURE carvedilol 25 mg tablet See Rx Instructions .ROUTE .COMPLEX Qty: 60 2RF Dose Instruction: TAKE ONE TABLET BY MOUTH TWICE DAILY FOR BLOOD PRESSURE --TAKE WITH FOOD-- Rx Instructions: TAKE ONE TABLET BY MOUTH TWICE DAILY FOR BLOOD PRESSURE --TAKE WITH FOOD-- lisinopril 40 mg tablet See Rx Instructions .ROUTE .COMPLEX Qty: 30 3RF Dose Instruction: TAKE ONE TABLET BY MOUTH EVERY DAY Rx Instructions: TAKE ONE TABLET BY MOUTH EVERY DAY buspirone 5 mg tablet 15 mg PO BID Referrals Follow up/Referrals: Bentley Watson MD [Primary Care Provider] - See instructions Activity Restrictions/Add. Instructions Additional Instructions/Restrictions: *Monitor Temp, Over the counter Motrin or Tylenol as directed/as needed Tylenol every 4 hours and Motrin every 6 hours (as long as your family doctor has told you that you can take it) for fever or pain. and straight to ER if unable to lower temp less than 101.0 after medication given *Warm salt water gargles may help to soothe the throat *Throat Lozenges? *Warm fluids like tea with honey may help to soothe the throat? *Sleep elevated *Humidifier/Vaporizer Your throat swab was sent for culture. Those results are typically sent to your primary care. Be sure to follow up in 2-3 days with your family doctor/primary care physician if no improvement so they can review those result and treat if necessary. If you don?t have a primary care doctor, I recommend you get one but in the mean time, you will have to return to a walk in clinic Follow up IMMEDIATELY for new or worsening symptoms or no Noticeable improvement over the next 48-72 hours. 911 for difficulty breathing or swallowing Clinical Impressions Clinical Impression: Sinusitis Instructions Patient Instructions: DI for Sinusitis, Sinusitis Discharge ED Provider: Mariama Obrien [facility] [place] General Stated complaint: Sore throat, ear pain, head congestion Mode of Arrival: Ambulatory Source of Information: Patient Limitations: No Limitations Time Seen by Provider: 02/10/22 11:47 Description of Symptoms (Recalled from Triage Doc. by RN): PATIENT C/O SORE THROAT, EAR PAIN, HEADACHE, AND NASAL CONGESTION X 4 DAYS HEENT Symptoms (Recalled from RN notes): Yes Resp Symptoms (Recalled from RN notes): No Skin Symptoms (Recalled from RN notes): No MS Symptoms (Recalled from RN notes): No Functional Status (Recalled from RN notes): WNL History of Present Illness Provider Complaint: Patient states that she has been having sinus congestion and pressure, drainage in her throat, sore throat and cough States that it has continued to get worse over the last 4-5 days States that today her throat was worse so she came in to get c
[2022-02-10 12:07] VITALS: BP 131/79; PULSE 73; RESP 18; TEMP 36.6; O2SAT 97
== END 2022-02-10 12:09 | disposition home or self-care (01) ==
PROVIDERS: Emergency Provider Nurse Practitioner; PCP Family Medicine
DX: J32.9 Chronic sinusitis, unspecified (principal); J02.9 Acute pharyngitis, unspecified; H92.09 Otalgia, unspecified ear; R51.9 Headache, unspecified; I10 Essential (primary) hypertension; M79.605 Pain in left leg; M79.604 Pain in right leg; E66.9 Obesity, unspecified; Z68.36 Body mass index [BMI] 36.0-36.9, adult; K76.0 Fatty (change of) liver, not elsewhere classified; F32.A Depression, unspecified; R07.9 Chest pain, unspecified; R94.31 Abnormal electrocardiogram [ECG] [EKG]; F41.9 Anxiety disorder, unspecified; Z79.51 Long term (current) use of inhaled steroids; Z79.52 Long term (current) use of systemic steroids; Z79.899 Other long term (current) drug therapy; Z88.8 Allergy status to other drugs, medicaments and biological substances
CPT/HCPCS: 87880; 99213; G0463

== ENCOUNTER → 2022-09-30 11:01 | Outpatient (CLI) | payer MEDICARE, SELFPAY ==
--- NOTE | 2022-09-30 11:07 | MR_ITS ---
FINAL REPORT CLINICAL HISTORY: RECURRENT HEADACHE FACIAL NUMBNESS FINDINGS: Multiplanar MR imaging of the brain was performed without contrast. There are scattered foci of increased T2 signal in the cerebral white matter that have a nonspecific appearance but likely represent mild chronic ischemic/gliotic changes. There is no evidence of intracranial hemorrhage or mass. No abnormal ventricular dilatation is identified. No abnormal extra-axial fluid collection is seen. No abnormality is seen on the diffusion weighted images. The posterior fossa and brainstem are unremarkable. Normal major vessel vascular flow voids are seen. There is mucosal thickening of the right maxillary sinus. IMPRESSION: Mild chronic ischemic/gliotic changes. No acute intracranial abnormality. Reviewed, Interpreted and Dictated by Reza Delgado III, MD Transcribed by Deedee Heaton Authenticated and [facility]
== END ==
PROVIDERS: PCP Nurse Practitioner Family; Visit Provider Nurse Practitioner Family
DX: R51.9 Headache, unspecified (principal); R20.2 Paresthesia of skin
CPT/HCPCS: 70551

== ENCOUNTER 2023-04-20 08:55 | Emergency (ER) | payer MEDICARE, SELFPAY ==
[2023-04-20] VITALS (24 sets, daily range): BP systolic 136–208; BP diastolic 73–157; PULSE 70–100; RESP 10–26; TEMP 36.7–36.9; O2SAT 91–100; BMI 34.5
--- NOTE | 2023-04-20 09:13 | CT_ITS ---
FINAL REPORT TECHNIQUE: Axial CT images of the face were obtained without contrast. Coronal reformatted images were also obtained. This study was performed with techniques to keep radiation doses as low as reasonably achievable, (ALARA). Individualized dose reduction techniques using automated exposure control or adjustment of mA and/or kV according to the patient''s size were employed. CLINICAL HISTORY: fall, pain, injury FINDINGS: There is a mildly displaced right nasal bone fracture. No other fracture is identified. There is nasal soft tissue swelling. There is moderate mucosal thickening of the right maxillary sinus. No fluid levels are identified. IMPRESSION: Mildly displaced right nasal bone fracture. Reviewed, Interpreted and Dictated by Reza Delgado III, MD Transcribed by Deedee Heaton Authenticated and [facility]
--- NOTE | 2023-04-20 09:13 | CT_ITS ---
FINAL REPORT CLINICAL HISTORY: fall, pain, injury COMPARISON: 09/30/2022 MRI FINDINGS: Axial images of the head were obtained without contrast. Coronal and sagittal reformatted images were also obtained.This study was performed with techniques to keep radiation doses as low as reasonably achievable (ALARA). Individualized dose reduction techniques using automated exposure control or adjustment of mA and/or kV according to the patient's size were employed. There is no evidence of intracranial hemorrhage or mass. The ventricular size is within normal limits. There is no evidence of shift of the midline structures. No abnormal extra axial fluid collection is identified. No skull abnormality is seen on the bone window images. There is moderate mucosal thickening within the right maxillary sinus. IMPRESSION: No acute intracranial abnormality. Right maxillary moderate mucosal thickening. Reviewed, Interpreted and Dictated by Reza Delgado III, MD Transcribed by Bethanie Parada Authenticated and . [facility]
--- NOTE | 2023-04-20 09:13 | XR_ITS ---
FINAL REPORT CLINICAL HISTORY: fall, pain, injury FINDINGS: Right forearm Two views were obtained. There is a comminuted, displaced fracture of the radius with dorsal displacement and angulation of the distal fracture fragments. Soft tissue swelling is seen. IMPRESSION: Fracture as above. Reviewed, Interpreted and Dictated by Reza Delgado III, MD Transcribed by Deedee Heaton Authenticated and [facility]
--- NOTE | 2023-04-20 09:13 | XR_ITS ---
FINAL REPORT CLINICAL HISTORY: fall, pain, injury FINDINGS: Right foot Three views were obtained. There is no acute fracture or dislocation. There are postoperative changes of the medial midfoot. Mild degenerative changes are present. There is a small plantar calcaneal spur. IMPRESSION: No acute process. Reviewed, Interpreted and Dictated by Reza Delgado III, MD Transcribed by Deedee Heaton Authenticated and [facility]
--- NOTE | 2023-04-20 09:13 | XR_ITS ---
FINAL REPORT CLINICAL HISTORY: fall, pain, injury FINDINGS: Right wrist Three views were obtained. There is a comminuted, displaced fracture of the radius with dorsal displacement and angulation of the distal fracture fragments. There is also a comminuted fracture of the ulnar styloid process. Soft tissue swelling is seen. IMPRESSION: Fractures as above. Reviewed, Interpreted and Dictated by Reza Delgado III, MD Transcribed by Deedee Heaton Authenticated and [facility]
--- NOTE | 2023-04-20 09:13 | XR_ITS ---
FINAL REPORT CLINICAL HISTORY: fall, pain, injury FINDINGS: Right elbow Three views were obtained. There is no acute fracture or dislocation. There are mild degenerative changes. No joint effusion is identified. No soft tissue abnormality is identified. IMPRESSION: No acute process. Reviewed, Interpreted and Dictated by Reza Delgado III, MD Transcribed by Deedee Heaton Authenticated and [facility]
--- NOTE | 2023-04-20 09:13 | XR_ITS ---
FINAL REPORT CLINICAL HISTORY: fall, pain, injury FINDINGS: Right hand Three views were obtained. There is no acute fracture or dislocation is seen involving the hand. The joint spaces appear normal. No soft tissue abnormality is identified. IMPRESSION: No acute process. Reviewed, Interpreted and Dictated by Reza Delgado III, MD Transcribed by Deedee Heaton Authenticated and [facility]
--- NOTE | 2023-04-20 09:13 | CT_ITS ---
FINAL REPORT CLINICAL HISTORY: fall, pain, injury FINDINGS: Axial CT images of the cervical spine were obtained without contrast. Sagittal and coronal reformatted images were also obtained. This study was performed with techniques to keep radiation doses as low as reasonably achievable (ALARA). Individualized dose reduction techniques using automated exposure control or adjustment of mA and/or kV according to the patient's size were employed. There is no evidence of fracture or dislocation. There are postoperative changes from C3-C7 laminectomies and fusion from C3-T1. Moderate degenerative changes are present. There is no malalignment. There is multilevel mild and moderate neural foraminal narrowing, greatest on the right at C6-7. There is no central canal stenosis. There is soft tissue asymmetry of the right supraglottic larynx of uncertain significance. IMPRESSION: Multilevel degenerative and postoperative change without acute bony abnormality. Soft tissue asymmetry of the right supraglottic larynx. If indicated, correlation with laryngoscopy may be helpful. Reviewed, Interpreted and Dictated by Reza Delgado III, MD Transcribed by Deedee Heaton Authenticated and [facility]
--- NOTE | 2023-04-20 09:26 | HMH.EDGENADL ---
Discharge Plan Disposition Patient Disposition: Home, Self-Care Condition: Good Prescriptions Prescriptions: New oxycodone 5 mg tablet 5 mg PO Q8H PRN (Reason: pain) Qty: 12 0RF No Action fluticasone propionate [Flonase Allergy Relief] 50 mcg/actuation spray,suspension 50 mcg INTRANASAL QDAY PRN (Reason: Allergic Reaction) venlafaxine [Effexor XR] 75 mg capsule,extended release 24hr 150 mg PO QDAY cyclobenzaprine 10 mg tablet 10 mg PO Q8H PRN (Reason: Pain) clonazepam 1 mg tablet 0.5 mg PO QHS melatonin 3 mg tablet 3 mg PO QHS Patient Comments: TAKE ONE TABLET BY MOUTH EVERY DAY AT BEDTIME hydrochlorothiazide 25 mg tablet See Rx Instructions .ROUTE .COMPLEX Qty: 90 1RF Dose Instruction: TAKE ONE TABLET BY MOUTH EVERY DAY FOR FLUID Rx Instructions: TAKE ONE TABLET BY MOUTH EVERY DAY FOR FLUID amlodipine 5 mg tablet See Rx Instructions .ROUTE .COMPLEX Qty: 90 1RF Dose Instruction: TAKE ONE TABLET BY MOUTH EVERY DAY FOR BLOOD PRESSURE Rx Instructions: TAKE ONE TABLET BY MOUTH EVERY DAY FOR BLOOD PRESSURE lisinopril 40 mg tablet See Rx Instructions .ROUTE .COMPLEX Qty: 90 1RF Dose Instruction: TAKE ONE TABLET BY MOUTH EVERY DAY Rx Instructions: TAKE ONE TABLET BY MOUTH EVERY DAY carvedilol 25 mg tablet See Rx Instructions .ROUTE .COMPLEX Qty: 60 2RF Dose Instruction: TAKE ONE TABLET BY MOUTH TWICE DAILY FOR BLOOD PRESSURE --TAKE WITH FOOD-- Rx Instructions: TAKE ONE TABLET BY MOUTH TWICE DAILY FOR BLOOD PRESSURE --TAKE WITH FOOD-- buspirone 5 mg tablet 15 mg PO BID amoxicillin-pot clavulanate 875-125 mg Tablet 1 tab PO Q12H 7 Days Qty: 14 0RF prednisone 20 mg tablet 20 mg PO BID Qty: 10 0RF Referrals Follow up/Referrals: Rohan Lawson MD [Physician] - See instructions Christopher Lovett MD [Physician] - See instructions Yadiel Giang DO [Staff Physician] - See instructions Bentley Watson MD [Primary Care Provider] - See instructions Activity Restrictions/Add. Instructions Additional Instructions/Restrictions: You were evaluated in the emergency department today and diagnosed with a fracture of your right wrist as well as of your right nasal bone. Please follow-up outpatient with orthopedics for your wrist and with ENT for your nasal bone fracture. We have provided you with contact information for them. You will have to call to schedule your own appointment. Keep your splint on, clean, and dry until you have seen orthopedics. Paper prescription for pain medication and take as needed for severe pain. Do not drive or operate heavy machinery while taking narcotic pain medication. It can constipate you, so I recommend taking laxatives with this. You may also take Tylenol and ibuprofen at home as needed for pain. Keep your wrist elevated to help reduce swelling. Return to the emergency department for new or worsening symptoms. Clinical Impressions Clinical Impression: Closed fracture of right wrist, Closed fracture nasal bone, Fall Instructions Patient Instructions: DI for Nose Fracture, DI for Wrist Fracture, How to Take Care of Your Splint, DI for Moderate Sedation Discharge ED Provider: Jany James General Adult HPI General Chief complaint: Fall Stated complaint: AO Fell inj right arm pain 04/19/23 Time Seen by Provider: 04/20/23 09:13 Mode of Arrival: Ambulatory Source of Information: Patient Limitations: No Limitations Description of Symptoms (Recalled from ER Triage Doc. by RN): 62 yo F presents to ED with c/o fall that occurred last night. pt reports she has foot drop of right foot. this caused her to stub her right big toe on the wall, when she did she fell. hurting her right wrist and nose. pt reports her wrist caught the fall, and face hit the floor. no LOC, pt reports taking baby aspirin daily, last dose yesterday. PMS present in right wrist History of Pr
--- NOTE | 2023-04-20 10:34 | XR_ITS ---
FINAL REPORT CLINICAL HISTORY: postreduction COMPARISON: 04/20/2023 FINDINGS: Right wrist Three views were obtained. Again identified are fractures of the distal radius and ulnar styloid process. There is improved alignment in the distal radius fracture fragments. A splint is present. IMPRESSION: Improved alignment in the distal radius. Reviewed, Interpreted and Dictated by Reza Delgado III, MD Transcribed by Deedee Heaton Authenticated and . [facility]
--- NOTE | 2023-04-20 10:48 | PC.NURSE ---
Dr. James at to reduce and splint fracture
[2023-04-20 17:27] LABS: POC Glucose,Bedside 147 (70-110)
== END 2023-04-20 13:26 | disposition home or self-care (01) ==
PROVIDERS: Emergency Provider Emergency Medicine; PCP Family Medicine
DX: S02.2XXA Fracture of nasal bones, initial encounter for closed fracture (principal); S52.501A Unspecified fracture of the lower end of right radius, initial encounter for closed fracture; S52.611A Displaced fracture of right ulna styloid process, initial encounter for closed fracture; I10 Essential (primary) hypertension; Z79.82 Long term (current) use of aspirin; W01.0XXA Fall on same level from slipping, tripping and stumbling without subsequent striking against object, initial encounter
CPT/HCPCS: 25605; 70450; 70486; 72125; 73080; 73090; 73110; 73130; 73630; 82962; 96374; 96375; 99152; 99153; 99285; J2405

== ENCOUNTER → 2023-04-27 15:39 | Outpatient (CLI) | payer MEDICARE, SELFPAY ==
--- NOTE | 2023-04-27 15:58 | ECG_ITS ---
APPROVED REPORT Exam: Resting ECG HR:59 bpm ECG Measurements Heart Rate 59 AXES GA 149 P 55 QRSd 86 QRS 82 QT 413 T 66 QTc 412 Conclusion SINUS BRADYCARDIA BORDERLINE ECG UNCONFIRMED REPORT Electronically signed by : Bentley Beach MD 04/27/2023 16:50:00
--- NOTE | 2023-04-27 16:00 | XR_ITS ---
FINAL REPORT CLINICAL HISTORY: Pre Op, having wrist sx, high blood pressure FINDINGS: TWO-VIEW CHEST The heart size is normal. The mediastinum is normal. The lungs are clear. There is no pneumothorax. Cervical fusion hardware seen in the lower cervical spine. IMPRESSION: No acute cardiopulmonary process. Reviewed, Interpreted and Dictated by Hudson Khan MD Transcribed by Deedee Heaton Authenticated and . [facility]
[2023-04-27 16:21] LABS: Basophils # 0.2 K/mm3 (0-0.2); Basophils % 2.4 % (0.1-2.0); Eosinophils # 0.3 K/mm3 (0.0-0.4); Eosinophils % 3.8 % (0.1-12.0); Hematocrit 48.5 % (37.0-47.0); Hemoglobin 16.7 g/dL (12.2-16.2); Lymphocytes # 1.9 K/mm3 (0.7-4.5); Lymphocytes % 26.3 % (10-50); Mean Corpuscular HGB Conc 34.4 g/dL (31.8-35.4); Mean Corpuscular Volume 95.9 fl (81-99); Mean Platelet Volume 8.1 fl (7.4-10.4); Monocytes # 0.7 K/mm3 (0.1-1.0); Monocytes % 9.9 % (1.7-9.3); Neutrophils # 4.2 K/mm3 (1.8-7.8); Neutrophils % 57.6 % (37.0-80.0); Platelet Count 220 K/mm3 (142-424); Red Blood Count 5.05 M/mm3 (4.20-5.40); Red Cell Distribution Width 13.7 % (11.5-17.5); White Blood Count 7.4 K/mm3 (4.8-10.8)
[2023-04-27 16:54] LABS: Alanine Aminotransferase 95 U/L (12-78); Albumin Level 4.4 g/dl (3.5-5.0); Albumin/Globulin Ratio 1.4 (1.1-1.8); Alkaline Phosphatase 193 U/L (38-126); Anion Gap 8.7 mEq/L (5-15); Aspartate Amino Transferase 167 U/L (14-36); Bilirubin,Total 1.2 mg/dl (0.2-1.3); Blood Urea Nitrogen 19 mg/dl (7-17); Carbon Dioxide 33 mmol/L (22.0-30.0); Chloride 99 mmol/L (98-107); Estimated Glomerular Filt Rate 72 ml/min (>60); GFR (African American) 88 ML/MIN (>60); Globulin 3.2 g/dL (1.3-3.2); Glucose 90 mg/dl (74-100); Potassium 4.7 mmoL/L (3.5-5.1); Sodium 136 mmol/L (136-145); Total Protein,Serum 7.6 g/dl (6.3-8.2)
== END ==
PROVIDERS: PCP Family Medicine; Visit Provider Orthopaedic Surgery
DX: J11.1 Influenza due to unidentified influenza virus with other respiratory manifestations (principal); S52.571A Other intraarticular fracture of lower end of right radius, initial encounter for closed fracture
CPT/HCPCS: 36415; 71046; 80053; 85025; 93005

== ENCOUNTER 2023-04-30 06:39 | Day surgery (SDC) | payer MEDICARE, SELFPAY ==
[2023-04-30] VITALS (9 sets, daily range): BP systolic 108–158; BP diastolic 51–88; PULSE 65–82; RESP 14–18; TEMP 36.1–36.6; O2SAT 90–97; BMI 34.5
[2023-04-30] MEDS: LACTATED RINGERS 1000ML 1,000 ML 25 ML IV (07:22)
--- NOTE | 2023-04-30 07:48 | P.PNANES_ITS ---
[facility] Disclaimer: The information contained in this section may have been updated after the patient was seen, as this information can be updated by other users. Medical History Abnormal EKG Anxiety Chest pain Depression Deviated nasal septum Edema Fatty liver Hypertension Malignant hypertension Obesity Pain in both lower legs Sensation of cold in lower extremity Surgical History History of back surgery History of hysterectomy History of surgery on left wrist Hx of neck surgery Family History Other Family history of Alzheimer's disease Family history of acute heart failure Family history of cancer Family history of diabetes mellitus type II Family history of hyperlipidemia Family history of hypertension Social History Smoking Status: Never smoker second hand exposure: No alcohol intake: current counseling provided: none substance use type: denies use current occupational status: disabled Travel in the last 8 weeks: None household members: spouse housing: house current occupational exposures/hazards: No caffeine: No [facility] Anesthesia Checklist Patient Identification Patient Identification: Arm Band and Verbal (Name & ) Structural Data Admitted From: Home Planned Operative Procedure/s: ORIF wrist Consent for Planned Operative Procedure(s) Verified: Yes NPO Status Verified Time NPO: 00:00 Chart Verification Results Verified: CBC and BMP Additional verifications Anesthesia Reactions: No Hx Blood Transfusions: No Blood Transfusion Reaction: No Airway Assessment Mallampati Score:: Class II C-Spine Mobility Assessed: Yes TMJ Mobility Assessed: Yes Dentition: Good Dentition Neurological Assessment Level of Consciousness: Awake Hx Seizures: No Numbness or tingling in extremities: No Anesthesia Plan Anesthesia Risk discussed: Yes Anesthesia Plan: Verified ASA Class: III Anesthesia Type: General w/block
[2023-04-30] MEDS: CLINDAMYCIN PHOSPHATE 900 MG in 0.9 % SODIUM CHLORIDE 50 ML 50 MG IV (09:25)
--- NOTE | 2023-04-30 10:56 | XR_ITS ---
FINAL REPORT CLINICAL HISTORY: ORIF RT WRIST fluoro time: .50 1.01 mgy FINDINGS: FLUOROSCOPY LESS THAN 1 HOUR HISTORY: Fluoroscopy guidance. Fluoroscopic guidance was provided for ORIF right wrist. A single spot film was obtained. A total of 0.50 minutes of fluoroscopy time were used. Total DAP: 1.01 mGy IMPRESSION: As above. Reviewed, Interpreted and Dictated by Hudson Khan MD Transcribed by Emma Lassiter Authenticated and [facility]
--- NOTE | 2023-04-30 11:15 | EXP.OP.NOTE ---
Date of procedure: 04/30/23 Pre-op Diagnosis:: Right distal radius fracture intra-articular 3+ part Post-op Diagnosis:: Same Procedure performed:: Open reduction internal fixation right distal radius fracture intra-articular 3+ part with volar plating Surgeon:: Yadiel Giang DO SOLAR SALES REPRESENTATIVE:: Kendall Fernandez Anesthesia: GETA and regional Estimated blood loss (mL): 10 Clinical Note:: Implants Synthes volar plate distal radius system Operative findings:: Intra-articular comminuted distal radius fracture Operative note:: Patient was identified preoperatively. Right wrist marked with yes my initials. Transported to operative suite after undergoing a block with anesthesia. Placed upon the operating bed with a hand table. Right upper extremities and prepped and draped normal sterile fashion. Once prepped and draped final operative timeout performed to identify proper patient procedure and extremity. Everyone involved the case agreed. Is no counter indications to beginning. Did receive preoperative antibiotics. Marking pen was used to jose j plan incision over the volar wrist. Esmarch was used to exsanguinate the extremity. Pneumatic tourniquet inflated to 250 mmHg. Skin knife was used to incise the skin careful dissection was taken down to the FCR tendon sheath which was opened and the FCR tendon was retracted radially throughout the procedure to protect the radial artery. Floor of the FCR was opened. Dissection was taken down pronator quadratus was then cut in L-type fashion off the distal radius and retracted. This exposed the fracture site there was comminution at the fracture site both volarly and dorsally. Reduction maneuver was performed under direct visualization with a freer elevator dental pick and traction. X-ray was brought in to show adequate alignment of the fracture. Pulmonary fixation was obtained with a K wire through the radial styloid. Plate was selected from the Synthes volar distal radius set and placed on the bone. Cortical screw was placed in the shaft to bring the shaft of the plate under direct visualization the distal locking screws were placed. With good spread within the comminution of the distal radius fragments. Additional locking screw was placed proximally in the cortical screw was replaced with a locking screw in the shaft. This gave good fixation of the fracture wrist was taken through range of motion found to be stable. Irrigation of the wound performed. Deep layers closed with Vicryl stitch 3-0 nylon the skin for closure sterile dressing placed with a volar splint. Patient waken anesthesia taken recovery in stable condition. Condition: stable Disposition: PACU Complications:: None apparent
--- NOTE | 2023-04-30 11:16 | EXP.ANES.I ---
[facility] Anesthesia Record Part I Anesthesia Record I Intake, IV Amount: 2,000 Hydration: Adequate Estimated blood loss (mL): 10 Urine output (mL): 0 Blood Pressure: 149/81 SaO2: 94 Pulse Rate: 82 Airway Patency: Patent Respiratory Rate: 14 Temperature: 97.5 F Patient is:: Awake and Stable Stable to PACU at:: 11:13
[2023-04-30] MEDS: MORPHINE 2MG/ML SYRINGE 2 MG IV (11:40)
[2023-05-01 12:24] LABS: POC Glucose,Bedside 137 (70-110)
[2023-05-03 08:08] VITALS: BP 147/81; PULSE 76; RESP 18; TEMP 36.1; O2SAT 96
--- NOTE | 2023-05-03 08:08 | P.PNANES_ITS ---
[facility] Anesthesia Record Part II Anesthesia Record Part II Discharge Time: 11:43 Destination: Surgical Day Care (OP Surgery) PACU nurse assessment reviewed?: Yes Patient Condition:: Good Anesthesia Complications:: None Swallowing reflex intact?: Yes Airway Patency: Patent Cyanosis?: No Blood Pressure: 147/81 SaO2: 96 Respiratory Rate: 18 Pulse Rate: 76 Temperature: 97 F Mental Status: Alert & Oriented Pain level:: 0 Nausea and/or vomitting:: None Intake, IV Amount: 0 Hydration: Adequate
== END 2023-04-30 12:20 | disposition home or self-care (01) ==
PROVIDERS: PCP Family Medicine; Visit Provider Orthopaedic Surgery
PROC: (CPT 25609; principal; 2023-04-30 08:15)
DX: S52.571A Other intraarticular fracture of lower end of right radius, initial encounter for closed fracture (principal); I10 Essential (primary) hypertension; Z79.899 Other long term (current) drug therapy; W01.0XXA Fall on same level from slipping, tripping and stumbling without subsequent striking against object, initial encounter; Y92.019 Unspecified place in single-family (private) house as the place of occurrence of the external cause
CPT/HCPCS: 25609; 73100; 76000; 82962; 96374; C1713; C1776; J2405

== ENCOUNTER 2023-05-20 09:05 | Outpatient (CLI) | payer MEDICARE, SELFPAY ==
--- NOTE | 2023-05-20 09:11 | XR_ITS ---
FINAL REPORT CLINICAL HISTORY: right wrist ORIF COMPARISON: 04/20/2023 FINDINGS: RIGHT WRIST Three views demonstrate postoperative changes from ORIF. There is a comminuted distal radial fracture. Screw plate and multiple screws are noted. There is a fracture of the ulnar styloid process. Splint obscures detail. There is mild degenerative change. The soft tissues are unremarkable. IMPRESSION: Radial and ulnar fractures with postoperative changes as above. Reviewed, Interpreted and Dictated by Reza Delgado III, MD Transcribed by Emma Lassiter Authenticated and [facility]
== END 2023-05-20 23:59 ==
LOC: RAD 09:06
PROVIDERS: PCP Family Medicine; Visit Provider Orthopaedic Surgery
DX: S62.101A Fracture of unspecified carpal bone, right wrist, initial encounter for closed fracture (principal); M25.531 Pain in right wrist
CPT/HCPCS: 73110

== ENCOUNTER 2023-05-20 09:38 | Outpatient (RCR) | payer MEDICARE, SELFPAY | END 2023-05-20 11:00 | disposition home or self-care (01) | LOC: OT 09:38 | PROVIDERS: Visit Provider Orthopaedic Surgery | DX: M25.531 Pain in right wrist (principal); S52.571A Other intraarticular fracture of lower end of right radius, initial encounter for closed fracture; S62.101A Fracture of unspecified carpal bone, right wrist, initial encounter for closed fracture; W19.XXXA Unspecified fall, initial encounter | CPT/HCPCS: 97763 ==

== ENCOUNTER 2023-07-08 11:06 | Outpatient (CLI) | payer MEDICARE, SELFPAY ==
--- NOTE | 2023-07-08 11:12 | XR_ITS ---
FINAL REPORT CLINICAL HISTORY: rt wrist pain, f/u COMPARISON: 05/20/2023 FINDINGS: RIGHT WRIST Three views demonstrate sideplate and screws securing a healed or healing fracture deformity of the distal radial metaphysis. There is moderate radiocarpal joint space narrowing. There is an ununited fragment distal to the ulna. The bones are osteopenic. There is been interval removal of plaster cast. IMPRESSION: Healed or healing fracture deformity of the distal radial metaphysis. Ununited fragment distal to the ulnar Reviewed, Interpreted and Dictated by Hudson Khan MD Transcribed by Sobia Coughlin Authenticated and [facility]
== END 2023-07-08 23:59 ==
PROVIDERS: PCP Family Medicine; Visit Provider Orthopaedic Surgery
DX: S62.101A Fracture of unspecified carpal bone, right wrist, initial encounter for closed fracture (principal); M25.531 Pain in right wrist
CPT/HCPCS: 73110

== ENCOUNTER 2023-12-21 13:19 | Outpatient (CLI) | payer MEDICARE, SELFPAY ==
--- NOTE | 2023-12-21 13:27 | XR_ITS ---
FINAL REPORT CLINICAL HISTORY: right wrist pain fall COMPARISON: 07/08/2023 FINDINGS: Right wrist Three views were obtained. There are postoperative changes in the distal radius. Screw plate and multiple screws are present. There is a chronic fracture of the ulnar styloid process, stable. Mild degenerative changes are present. No other fracture or dislocation is identified. IMPRESSION: Postsurgical changes as above. Reviewed, Interpreted and Dictated by Reza Delgado III, MD Transcribed by Deedee Heaton Authenticated and [facility]
== END 2023-12-21 23:59 | disposition home or self-care (01) ==
LOC: RAD 13:22
PROVIDERS: PCP Family Medicine; Visit Provider Orthopaedic Surgery
DX: M25.531 Pain in right wrist (principal)
CPT/HCPCS: 73110

== ENCOUNTER 2024-07-18 12:30 | Outpatient (CLI) | payer MEDICARE, SELFPAY ==
--- NOTE | 2024-07-18 12:42 | XR_ITS ---
FINAL REPORT CLINICAL HISTORY: RT-SIDE..foot pain..drop foot COMPARISON: 04/20/2023 FINDINGS: RIGHT FOOT Three views were obtained. There is no fracture or dislocation. There are stable postoperative changes from arthrodesis of the medial midfoot. The bones are osteopenic. There are mild degenerative changes of the first metatarsophalangeal joint. Mild calcaneal spurring is identified. IMPRESSION: Degenerative and postsurgical changes as above. Reviewed, Interpreted and Dictated by Timmy Rogers MD Transcribed by Deedee Heaton Authenticated and [facility]
--- NOTE | 2024-07-18 12:42 | XR_ITS ---
FINAL REPORT CLINICAL HISTORY: pain..no trauma FINDINGS: LUMBAR SPINE Five views were obtained. There is no acute fracture. There are postoperative changes of fusion from L3-S1. Pedicle screws and rods are seen at the L3-4 level. There is grade 1 anterior spondylolisthesis of L5 on S1. Severe degenerative disc changes are seen with vacuum change and spondylosis from T12-L2. IMPRESSION: Severe degenerative changes in the upper lumbar spine. Reviewed, Interpreted and Dictated by Timmy Rogers MD Transcribed by Deedee Heaton Authenticated and [facility]
== END 2024-07-18 23:59 | disposition home or self-care (01) ==
PROVIDERS: PCP Nurse Practitioner; Visit Provider Nurse Practitioner
DX: M54.41 Lumbago with sciatica, right side (principal); M54.16 Radiculopathy, lumbar region; M79.671 Pain in right foot; M21.371 Foot drop, right foot
CPT/HCPCS: 72110; 73630

== ENCOUNTER 2024-08-03 08:07 | Outpatient (CLI) | payer MEDICARE, SELFPAY ==
--- NOTE | 2024-08-03 08:09 | XR_ITS ---
FINAL REPORT TECHNIQUE: Bone densitometry calculations of the lumbar spine and bilateral hips were obtained. CLINICAL HISTORY: post menopausal COMPARISON: None FINDINGS: Using L1-4, the bone mineral density of the spine is 1.418 g/cm2, corresponding to T-score of 3.4. Using the left hip, the bone mineral density of the femoral neck is 0.646 g/cm2, corresponding to a T-score of -1.8. Using the right hip, the bone mineral density of the femoral neck is 0.801 g/cm?, corresponding to a T-score of -1.8. NOTE: T-score: Standard deviation compared with peak bone mass of young adult mean. *Following the recommendations of the International Society of Bone densitometry, classification of hip BMD is based on the lower of two T-scores; total hip or femoral neck. IMPRESSION: Diminished bone mineral density of the bilateral hips consistent with osteopenia. Normal bone mineral density of the lumbar spine. Reviewed, Interpreted and Dictated by Timmy Rogers MD Transcribed by Bethanie Parada Authenticated and [facility]
--- NOTE | 2024-08-03 08:09 | US_ITS ---
FINAL REPORT TECHNIQUE: Multiple transverse and longitudinal images CLINICAL HISTORY: .elevated labs COMPARISON: None FINDINGS: The gallbladder shows no wall thickening, distention or stone disease. No biliary ductal dilatation is appreciated. No fluid collections are seen. Limited portions of the right liver demonstrate fatty infiltration of the liver. Limited portions of the right kidney are unremarkable. IMPRESSION: No biliary ductal dilatation identified. Mild fatty infiltration of the liver. Reviewed, Interpreted and Dictated by Timmy Rogers MD Transcribed by Bethanie Parada Authenticated and [facility]
--- NOTE | 2024-08-03 08:10 | MR_ITS ---
FINAL REPORT TECHNIQUE: Multiplanar MR without contrast CLINICAL HISTORY: LIVER ENZYME, OSTEOPENIA, NUMBNESS IN LEGS LUMBAR SX 2010 LBP BILATERAL LEG NUMBNESS COMPARISON: 09/20/2017 FINDINGS: No evidence of fractures. There are postoperative changes from fusion of L3 through L5. Pedicle screw is noted of L3 and L4. There is minimal retrolisthesis of T12 on L1 and L1 on L2. T12-L1: Moderate annular disc bulge. Mild canal stenosis, worse from prior. Moderate bilateral neural foraminal narrowing. L1-2: Moderate annular disc bulge and facet arthropathy. Moderate central canal stenosis and neural foraminal narrowing, worse from prior. L2-3: Moderate annular disc bulge. Ligamentum flavum hypertrophy. Moderate central canal stenosis and neural foraminal narrowing, stable. L3-4: Fusion and laminectomy without canal stenosis or significant neural foraminal narrowing. L4-5: Fusion and laminectomy. Mild bilateral neural foraminal narrowing without central canal stenosis. L5-S1: Mild annular disc bulge. Mild bilateral neural foraminal narrowing. IMPRESSION: Worsening canal stenosis of the upper lumbar spine as above. Stable postoperative changes lower lumbar spine without canal stenosis at the operative levels. Reviewed, Interpreted and Dictated by Timmy Rogers MD Transcribed by Emma Lassiter Authenticated and [facility]
== END 2024-08-03 23:59 | disposition home or self-care (01) ==
LOC: RAD 08:08
PROVIDERS: PCP Nurse Practitioner; Visit Provider Nurse Practitioner
DX: M85.88 Other specified disorders of bone density and structure, other site (principal); M54.16 Radiculopathy, lumbar region; R20.0 Anesthesia of skin; R74.8 Abnormal levels of other serum enzymes
CPT/HCPCS: 72148; 76705; 77080

== ENCOUNTER 2024-10-13 07:22 | Outpatient (CLI) | payer MEDICARE, SELFPAY ==
--- OUTSIDE RECORDS SUMMARY | 2024-10-13 07:25 | XMS_ITS | Data Portability ---
Author Organization JULIET THOMAS [facility] [place] Address [facility] [place] [address] Assessment No assessment recorded. Plan of Treatment Reminders Order Date Submit Date Provider Last Modified By Organization Details Last Modified Time Details Appointments None recorded. Lab None recorded. Referral None recorded. Procedures None recorded. Surgeries None recorded. Imaging None recorded. Medication Orders Gemtesa 75 mg tablet 024 024 [email or web address] Not available 4 13:04:03 Patient TargetsNo targets recorded. Patient InstructionsNo instructions recorded. Reason for Referral None Reported. Problems Name Problem SNOMED Code Status Onset Date Resolution Date Notes Provider Name and Address Organization Details Recorded Time Diabetes mellitus 67532616 Active 024 Shannan capellan JULIET GUZMAN [facility] & [place] 4 11:27:40 Seasonal allergy 781154906 Active 024 Shannan Alex marilia JULIET Pederson [facility] & [place] 4 11:27:49 Arthritis 1263427 Active 024 Shannan Alex marilia JULIET GUZMAN [facility] & [place] 4 11:27:55 Anxiety 72720422 Active 024 Shannan capellan JULIET GUZMAN [facility] & [place] 4 11:28:01 Depressive disorder 74175884 Active 024 Shannan Alex marilia JULIET Pederson LPNT [facility] & [place] 4 11:28:11 Problem Notes None recorded. Procedures Surgical History Date Name Laterality Status Provider Name and Address Organization Details Recorded Time Total Hysterectomy completed Tefani e Alex Pederson [place] & [place] 12/15/2023 11:30:28 procedure on back completed Shannan Pederson [place] & [place] 12/15/2023 11:30:36 operation on neck completed Shannan GUZMAN [facility] & [place] 12/15/2023 11:30:46 procedure on wrist completed Lincoln GUZMAN [facility] & [place] 12/15/2023 11:30:54 procedure on foot completed Shannan GUZMAN [facility] & [place] 12/15/2023 11:31:02 tonsillectomy completed Shannan GUZMAN [facility] & [place] 12/15/2023 11:31:10 Imaging Results None recorded. Procedure Notes None recorded. Medical Equipment None Reported. Allergies Allergen ID Allergen Name Allergen Category Reaction Reaction Severity Criticality Documentation Date Start Date Code Code System Note Provider Name and Address Organization Details Recorded Time 366511 Substance with sulfonami de structure and antibacte rial mechanism of action (substanc e) medicatio n Not available Not available Not available 12/15/2023 01925 8003 SNOMED Shannan capellan, JULIET GUZMAN [facility] & [place] 11:27:29 Medications Name Sig Start Date Stop Date Status Note LastModified by Organization Details LastModified Time pioglitazon e 15 mg tablet TAKE ONE TABLET BY MOUTH EVERY DAY active Not Available Not Available No t Available carvedilol 25 mg tablet Take 1 tablet twice a day by oral route. active Not Available Not Available No t Available ketoconazol e 2 % shampoo USE A SHAMPOO TO THE SCALP THREE TIMES A WEEK. LATHER FOR 5 MINUTES, THEN RINSE 12/14 completed Not Available Not Available Not Available azithromyci n 250 mg tablet TAKE 2 TABLETS BY MOUTH ON DAY 1, THEN TAKE 1 TABLET DAILY ON DAYS 2-5 12/14 completed Not Available Not Available Not Available lisinopril 20 mg tablet TAKE ONE TABLET BY MOUTH EVERY DAY active Not Available Not Available No t Available clonazepam 0.5 mg tablet Take 1 tablet 3 times a day by oral route. active Not Available Not Available No t Available venlafaxine ER 150 mg capsule,ext ended release 24 hr Take 1 capsule every day by oral route. active Not Available Not Available No t Available amlodipine 5 mg tablet TAKE ONE TABLET BY MOUTH EVERY DAY active Not Available Not Available No t Available oxycodone-a cetaminophe n 5 mg-325 mg tablet TAKE ONE TABLET BY MOUTH EVERY 6 HOURS NEEDED FOR post op pain MAY CAUSE DROWSINES S 12/14 completed Not Available Not Available Not Available trazodone 100 mg tablet TAKE ONE TABLET BY MOUTH EVERY DAY AT BEDTIME active Not Available Not Available No t Available buspirone 10 mg tablet TAKE ONE TABLET BY MOUTH TWICE DAILY active Not Available Not Available No t Available hydrocortis one 2.5 % topical cream apply a thin layer topically TO THE face TWICE DAILY 12/14 completed Not Available Not Available Not Available hydrochloro thiazide 25 mg tablet TAKE ONE TABLET BY MOUTH EVERY DAY active Not Available Not Available No t Available fluticasone propionate 50 mcg/actuati on nasal spray,suspe nsion INSTILL 2 SPRAYS IN EACH NOSTRIL TWICE DAILY FOR ALLERGY congestio n 12/14 completed Not Available Not Available Not Available metformin ER 500 mg tablet,exte nded release 24 hr TAKE ONE TABLET BY MOUTH EVERY EVENING active Not Available Not Available No t Available oxycodone 5 mg tablet TAKE ONE TABLET BY MOUTH EVERY 8 HOURS NEEDED FOR PAIN MAY CAUSE DROWSINES S 12/14 completed Not Available Not Available Not Available nitrofurant oin monohydrate /macrocryst als 100 mg capsule TAKE ONE CAPSULE BY MOUTH EVERY TWELVE HOURS FOR 7 DAYS -- FINISH ALL MEDICINE -- --TAKE WITH FOOD-- 12/14 completed Not Available Not Available Not Available aspirin active Not Available Not Avail able Not Available lisinopril 12/14 completed Not Available Not Available Not Available Stool Softener active Not Available Not Available Not Available Vraylar 1.5 mg capsule Take 1 capsule every day by oral route. active Not Available Not Available No t Available Gemtesa 75 mg tablet Take 1 tablet every day by oral route. 2023 active Not Available Not Available Not Avai lable Vitals Date Recorded Body height Body mass index (BMI) Body weight Body temperature Provider Name and Address Organization Details Last Updated DateTime 12/15/2023 160.02 cm 35.4 kg/m2 82833.47 g 97.9 [degF] Shannan Johnson [place] - [facility] - [place] & [place] 12/15/2023 11:27:20 Social History None recorded. Functional Status Question Answer Note LastModified by Organizat ion Details LastModified Time What is your level of alcohol consumption? Occasional [email or web address] Information not available 12/15/2023 Mental Status None recorded. Family History Relationship Description Onset Age of this Age Resolved Age Notes LastModified by Organization Details LastModified Time Brother Family history unknown dec [email or web address] Not available 2023 11:29:03 Father Family history unknown dec [email or web address] Not available 2023 11:29:03 Mother Family history unknown dec [email or web address] Not available 2023 11:29:41 Sister Family history unknown dec [email or web address] Not available 2023 11:29:48 Sister Family history unknown [email or web address] Not available 2023 11:29:53 Medical History No medical history recorded. Gynecological HistoryNo gynecological history recorded. Obstetrics History GPAL:G 0 P 0 0 0 0 Past Encounters Encounter ID Performer Location Encounter Start Date Encounter Closed Date Diagnosis/Indication Diagnosis SNOMED-CT Code Diagnosis ICD10 Code Diagnosis Note [id number] Junior Hayes Jr, MD [facility] [address] [address] 12/15/2023 11:11:35 12/15/2023 12:30:22 Urge incontinence of urine 48204385 N39.41 patient with symptoms of daytime frequency, nocturia, urgency and urge incontinen ce. We discussed caffeine cessation and samples of Gemtesa were given. She will follow up in [address] Female str ess incontinence 42422203 N39.3 we discussed the difference s between urge and stress incontinen ce. We discussed that stress incontinen ce is more of a surgical fix and that the urge incontinen ce needed to be brought under control 1st. He will exercises were recommende d. Cystocele 726051812 N81. 10 patient with grade 2 descensus of the bladder. No surgical indication at this point. Nocturia 206310479 R35.1 we discussed that nocturia can be part of overactive bladder syndrome. She is to take the Gemtesa and restrict fluids to 3 hours before bedtime. Health Concerns Section Related Observation LastModified by Organization Detai ls LastModified Time None Recorded Concern Status LastModified by Organization Details LastModified Time None Recorded Advance Directives Directive None Recorded Payers Insurance Date Sequence Insurance Name Policy Number Policy Buchanan Covered Member ID Buchanna Member ID Guarantor Name 01/23/2024 1 [place]ARE[place]ICARE[place] Jenni Curry [id number] Jenni Curry Notes Date Note Type Note Provider Name and Address Organization Details Recorded Time 12/15/2023 text/html Patient is a 63-year-old white female referred for more urinary tract symptoms. She complains of nocturia every 1-2 hours and daytime frequency every 2 hours. She has tried sleeping pills to help her sleep through the night without improvement. She wears 2 pads per day. She has both urge and stress incontinence. She does drink right up to that time. Contributing factors include a history of diabetes and anxiety. Her office note from her primary care physician was reviewed from November 26 2023. Patient also feels like her bladder has dropped down. Junior Hayes Jr, MD [address] [place] [address], [address], [place], [address], [place] - [facility] - [place] & [place] 01/14/2024 13:04:52 OBGyn Episode No OBEpisode recorded.
--- OUTSIDE RECORDS SUMMARY | 2024-10-13 07:25 | XMS_ITS | Data Portability ---
Author Organization JULIET CHER [facility] [place] [facility] Address [address] [place] [address] Care Team Providers Care Mortgage Loan Underwriter Name Role Phone JOSE MARIA ALMANZA Primary Care Provider [phone] [employer] Referring Provider Assessment Encounter Date Assessment Date Assessment LastModified by Organization Details LastModified Time 09/30/2017 09/30/2017 Mrs. Curry is a 56-year-old female with a history of a L3 through sacral fusion. She appears to have instrumentation at L3-4, good fusion at L4-5 and pseudoarthrosis at L5-S1 with a partial screw left on the right at S1. At a minimum, am recommending extension of her fusion to L2-3. However, there is a potential argument rapier insertion loom fixer fusion higher based on the degree of degeneration at T12-L1, and L1-2. She also has evidence of L5-S1 pseudoarthrosis. Addressing this may be an intraoperative decision. This would involve revising L5-S1, but also placing iliac bolts bilaterally for inferior support. We discussed this operation in detail. She would like to hold off as long as possible. We discussed the risks and benefits of delaying the surgery and of the surgery itself. She understands that there are risks either way. We would need to update her MRI if she has a significant change in symptoms prior to surgery. She will call us when she wishes to proceed. I gave her the contact information for our surgery coordinator, Alanis Moore. [email or web address] Not available 09/30/2017 11:54:02 Plan of Treatment Reminders Order Date Submit Date Provider Last Modified By Organization Details Last Modified Time Details Appointments None record ed. Lab None record ed. Referral None record ed. Procedures None record ed. Surgeries None record ed. Imaging None record ed. Medication Orders None record ed. Patient TargetsNo targets recorded. Patient InstructionsNo instructions recorded. Reason for Referral None Reported. Problems Name Problem SNOMED Code Status Onset Date Resolution Date Notes Provider Name and Address Organization Details Recorded Time Spinal stenosis of lumbar region 12464974 Active 018 JF PRICE MD [address] [place] [address], [address] , [facility] 8 11:24:17 Problem Notes None recorded. Procedures Surgical History Date Name Laterality Status Provider Name and Address Organization Details Recorded Time Back Surgery completed [facility] 09/30/2017 10:38:29 Neck Surgery completed [facility] 09/30/2017 10:38:41 Unlisted px foot/toes completed [facility] 09/30/2017 10:38:49 Other completed [facility] 09/30/2017 10:38:58 Imaging Results None recorded. Procedure Notes None recorded. Medical Equipment None Reported. Allergies No known drug allergies Medications Name Sig Start Date Stop Date Status Note LastModified by Organization Details LastModified Time cyclobenzaprine 10 mg tablet active Not Available Not Available Not Available promethazine-DM 6.25 mg-15 mg/5 mL oral syrup active Not Available Not Availabl e Not Available venlafaxine ER 37.5 mg capsule,extende d release 24 hr active Not Available Not Availa ble Not Available lisinopril 20 mg-hydrochlorot hiazide 12.5 mg tablet active Not Available Not Available Not Available azithromycin 250 mg tablet active Not Available Not Availabl e Not Available ibuprofen 800 mg tablet active Not Available Not Available No t Available tizanidine 4 mg tablet active Not Available Not Available Not Available ondansetron HCl 4 mg tablet active Not Available Not Available Not Available prednisone 20 mg tablet active Not Available Not Available No t Available clonazepam 1 mg tablet active Not Available Not Available Not Available Wellbutrin SR 150 mg tablet, 12 hr sustained-relea se Daily active Frequ ency: daily ;Medi catio n Descr iptio n: bupro pion; Dosag e:1; Route :oral ; refil ls:0 Not Available Not Available Not Available tramadol 50 mg tablet active Not Available Not Available Not Available oxycodone-aceta minophen 5 mg-325 mg tablet active Not Available Not Available Not Available oseltamivir 75 mg capsule active Not Available Not Available N ot Available lisinopril 10 mg tablet Bedtime 2009 active Durat ion: 30 days; Frequ ency: hs;Me dicat ion Descr iptio n: lisin opril ; Dosag e:1; Route :oral ; refil ls:0 Not Available Not Available Not Available diclofenac sodium 75 mg tablet,delayed release active Not Available Not Available Not Available oxycodone-aceta minophen 7.5 mg-325 mg tablet active Not Available Not Available Not Available methylprednisol one 4 mg tablets in a dose pack active Not Available Not Available No t Available brompheniramine -pseudoephedrin e-DM 2 mg-30 mg-10 mg/5 mL oral syrup active Not Available Not Available N ot Available fluticasone propionate 50 mcg/actuation nasal spray,suspensio n active Not Available Not Available Not Available naproxen 500 mg tablet active Not Available Not Available Not Available amoxicillin 875 mg-potassium clavulanate 125 mg tablet active Not Available Not Available No t Available enoxaparin 40 mg/0.4 mL subcutaneous syringe active Not Available Not Available Not Available Vitals Date Recorded Body height Body mass index (BMI) Body weight Systolic blood pressure Diastolic blood pressure Provider Name and Address Organization Details Last Updated DateTime 09/30/2017 160.02 cm 36.5 kg/m2 91858.03 g 132 mm[Hg] 82 mm[Hg] Raquel Villalobos [facility] 8 10:59:21 Social History Question Answer Notes LastModified by Organizat ion Details LastModified Time Tobacco Smoking Status Never Smoker Raquel Villalobos [facility] 09/30/2017 10:38:22 What Was The Date Of Your Most Recent Tobacco Screening? 09/30/2017 Information n ot available 07/04/2019 Sex: Unknown Functional Status None recorded. Mental Status None recorded. Family History Relationship Description Onset Age of this Age Resolved Age Notes LastModified by Organization Details LastModified Time Unspecified Relation Malignant neoplastic disease [email or web address] Not available 09/30 10:39:29 Unspecified Relation Diabetes mellitus [email or web address] Not available 09/30 10:39:33 Unspecified Relation Hypertensive disorder [email or web address] Not available 09/30 10:39:40 Medical History Condition Response Osteoporosis/Osteopenia Y Hypertension Y Gynecological HistoryNo gynecological history recorded. Obstetrics History GPAL:G 0 P 0 0 0 0 Past Encounters Encounter ID Performer Location Encounter Start Date Encounter Closed Date Diagnosis/Indication Diagnosis SNOMED-CT Code Diagnosis ICD10 Code Diagnosis Note [id number] JF PRICE MD [facility] [address] [place] [address] 09/30/2017 09:52:12 10/01/2017 11:11:22 Spinal stenosis of lumbar region 31132488 M48.062 Minutes spent reviewing images, discussing the diagnosis and coordinati ng care: 30 min Health Concerns Section Related Observation LastModified by Organization Detai ls LastModified Time None Recorded Concern Status LastModified by Organization Details LastModified Time None Recorded Advance Directives Directive None Recorded Payers Insurance Date Sequence Insurance Name Policy Number Policy Buchanan Covered Member ID Buchanan Member ID Guarantor Name 09/30/2017 2 [place] Jenni Curry [id number] Jenni Curry 09/30/2017 1 [facility] (PPO) [id number] Jenni Curry [id number] Jenni Curry 09/30/2017 1 [place] Jenni Curry [id number] Jenni Curry 09/30/2017 1 [facility] Jenni Curry [id number] Jenni Curry Notes Date Note Type Note Provider Name and Address Organization Details Recorded Time 09/30/2017 text/html 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 She presents with increasing low back and right hip and groin pain. She describes chronic right foot drop and tingling in the left leg. Her current pain is 4 out of 10 and described as burning, sharp stabbing and aching. The pain is constant, intermittent, but overall getting worse. She gets some relief from stretching. Her pain is made worse with walking, sitting and standing. She describes right lower extremity numbness, tingling and weakness. Intermittent bladder and bowel incontinence. She underwent extensive physical therapy in the past. She has trialed steroids. She takes anti-inflammatorie s daily. She takes tizanidine 4 mg 3 times daily. She has trialed Neurontin in the past. She has a history of a L3-S1 fusion, with facet arthrosis at L5-S1. She also has a history of multiple cervical segments fused. She was operated on the past by Dr. Munoz and Dr. Rosa. JF PRICE MD [address] [place], [address], [facility] 09/30/2017 11:54:32 OBGyn Episode No OBEpisode recorded.
--- NOTE | 2024-10-13 07:30 | CT_ITS ---
FINAL REPORT TECHNIQUE: Axial images were obtained of the cervical spine by computed tomography. Coronal and sagittal reconstruction process performed. This study was performed with techniques to keep radiation doses as low as reasonably achievable (ALARA). Individualized dose reduction techniques using automated exposure control or adjustment of mA and/or kV according to the patient's size were employed. CLINICAL HISTORY: SPINAL STENOSIS COMPARISON: 04/20/2023 FINDINGS: There is long segment posterior fusion bridging C3-C7. There is an interbody fusion of C7 and T1. There has been a prior posterior laminotomy defect extending from C2-C6. There is posterior osteophyte formation eccentric to the right at C4-5. There is mild compromise of the right C4-5 lateral recess. There is mild to moderate bilateral neural foraminal narrowing C4-5 and C6-7. These findings appear fairly similar to previous exam. Again noted is the asymmetric soft tissue prominence in the supraglottic larynx on the right. This asymmetric prominence is stable compared to the prior exam from April 2023. IMPRESSION: Similar-appearing degenerative and postoperative changes without acute abnormality. Stable appearing soft tissue prominence supraglottic larynx on the right. Reviewed, Interpreted and Dictated by Hudson Khan MD Transcribed by Nuvia Tsai Authenticated and [facility]
--- NOTE | 2024-10-13 07:30 | MR_ITS ---
FINAL REPORT CLINICAL HISTORY: SPINAL STENOSIS. RIGHT SIDED MID TO LOW BACK PAIN COMPARISON: None FINDINGS: Multiplanar MR imaging of the thoracic spine was performed without contrast. Exact levels in the thoracic spine are difficult to determine, as there is a large amount of magnetic susceptibility infarct in the cervical and lumbar regions, and there may be a transitional level present in the lumbar spine. On the sagittal T2-weighted images, disc degeneration is identified throughout the thoracic spine. There is moderate loss of height at all of the intervertebral thoracic disc levels. Endplate reactive changes are present, most prominent in the mid and lower thoracic spine. There is no evidence of fracture. The vertebral alignment is normal. No bony mass is identified. The thoracic spinal cord has an unremarkable appearance without evidence of mass, edema or syrinx. There is no evidence of canal stenosis or cord compression. On the axial images, multilevel disc protrusions are identified in the lower thoracic spine, the largest focal protrusion eccentric to the right best seen on image #7 of series 10 and image 2 of series 7. Moderate bulges are noted throughout the lower thoracic and lumbar spine with bilateral neural foraminal narrowing. There is no evidence of significant canal stenosis. No paraspinous soft tissue abnormality is seen. IMPRESSION: Multilevel extensive degenerative change is present in the thoracic spine, although levels are difficult to assign secondary to a large amount of magnetic susceptibility artifact from prior fusions in the cervical and lumbar spine. The largest focal protrusion is eccentric to the right, and best seen on image #7 of series 10, and image #2 of series 7. Reviewed, Interpreted and Dictated by Hduson Khan MD Transcribed by Bethanie Parada Authenticated and [facility]
== END 2024-10-13 23:59 | disposition home or self-care (01) ==
LOC: RAD 07:23
PROVIDERS: PCP Nurse Practitioner; Visit Provider Nurse Practitioner Family
DX: M47.814 Spondylosis without myelopathy or radiculopathy, thoracic region (principal); M51.24 Other intervertebral disc displacement, thoracic region; M47.812 Spondylosis without myelopathy or radiculopathy, cervical region; J38.7 Other diseases of larynx; Z98.890 Other specified postprocedural states; Z98.1 Arthrodesis status
CPT/HCPCS: 72125; 72146

== ENCOUNTER 2024-11-21 13:46 | Outpatient (CLI) | payer MEDICARE, SELFPAY ==
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
--- OUTSIDE RECORDS SUMMARY | 2024-11-21 13:49 | XMS_ITS | Clinical Summary ---
Author Organization [employer] ([place], [place], [place], [place]) Address [address] [place] [address] Care Team Providers Care Icu Staff Nurse Name Role Phone Unavailable Primary Care Provider Unavailabl e Allergies Active Allergy Reactions Criticality Noted Date Comments Cephalexin 09/19/2024 Medications amLODIPine (NORVASC) 5 MG tablet Take 1 tablet (5 mg total) by mouth daily. 08/25/2024 Active busPIRone (BUSPAR) 10 MG tablet Take 1 tablet (10 mg total) by mouth 2 (two) times daily. 09/01/2024 Active carvediloL (COREG) 25 MG tablet Take 1 tablet (25 mg total) by mouth 2 (two) times daily. 09/01/2024 Active cholecalciferol (VITAMIN D3) 1,250 mcg (50,000 unit) capsule Take 1 capsule (1,250 mcg total) by mouth twice a week. 09/01/2024 Active clonazePAM (KlonoPIN) 0.5 MG tablet Take 1 tablet (0.5 mg total) by mouth 2 (two) times daily. Max Daily Amount: 1 mg 09/01/2024 Active cyclobenzaprine (FLEXERIL) 10 MG tablet Take 1 tablet (10 mg total) by mouth. 09/13/2024 Active hydroCHLOROthia zide (HYDRODIURIL) 25 MG tablet Take 1 tablet (25 mg total) by mouth daily. 08/25/2024 Active HYDROcodone-chana taminophen (NORCO) 5-325 mg per tablet Take 1 tablet by mouth every 6 (six) hours. Max Daily Amount: 4 tablets 08/04/2024 Active lisinopriL (ZESTRIL) 20 MG tablet Take 1 tablet (20 mg total) by mouth daily. 09/01/2024 Active meloxicam (MOBIC) 15 MG tablet Take 1 tablet (15 mg total) by mouth daily. 08/25/2024 Active metFORMIN (GLUCOPHAGE-XR) 500 MG 24 hr tablet SMARTSI Tablet(s) By Mouth Every Evening 09/01/2024 Active predniSONE (DELTASONE) 20 MG tablet Take 1 tablet (20 mg total) by mouth 2 (two) times daily. 09/13/2024 Active traZODone (DESYREL) 100 MG tablet Take 1 tablet (100 mg total) by mouth nightly. 09/01/2024 Active venlafaxine XR (EFFEXOR-XR) 150 MG 24 hr capsule Take 1 capsule (150 mg total) by mouth daily. 09/01/2024 Active Encounters Date Type Department Care Team Description 11/08/2024 Orders Only [address] [address] Christopher Lovelace APRN Sacroiliac joint dysfunction of right side (Primary Dx) 10/20/2024 12:45 PM EDT Office Visit [address] [address] Blake Telles DO Sacroiliac joint dysfunction of right side (Primary Dx); Lumbar spinal stenosis due to adjacent segment disease after fusion procedure 10/16/2024 Orders Only [address] [address] ProviderTessa MD 10/13/2024 Orders Only [address] [address] Tessa Carter MD 09/19/2024 1:51 PM EDT - 09/19/2024 11:59 PM EDT Hospital Encounter [facility] Diagnostic Imaging - [address] [facility] [address] [facility] [address] [place] [address] Christopher Lovelace APRN Neck pain Discharge Disposition: Home or Self Care 09/19/2024 12:45 PM EDT - 09/19/2024 1:50 PM EDT Hospital Encounter [facility] Diagnostic Imaging - [facility] [address] [facility] [address] [place] [address] Christopher Lovelace APRN Lumbar pain Discharge Disposition: Home or Self Care 09/19/2024 12:30 PM EDT Office Visit [facility] - [facility] [address] [place] [address] Christopher Lovelace APRN Spinal stenosis of lumbar region, unspecified whether neurogenic claudication present (Primary Dx); Lumbar pain; Cervical spine pain 09/19/2024 Orders Only [facility] - [facility] [address] [place] [address] Christopher Lovelace APRN Neck pain (Primary Dx) 09/19/2024 Orders Only [facility] Diagnostic [facility] [address] [facility] [address] [facility] [address] [place] [address] Shyla James CMA 09/19/2024 Travel from Last 3 Months Family History Medical History Relation Name Comments Stroke Father Diabetes Mother High blood pressure Mother Relation Name Status Comments Father Mother Social History Tobacco Use Types Packs/Day Years [...] on file Sexual Orientation Not on file Last Filed Vital Signs Vital Sign Reading Time Taken Comments Blood Pressure 142/92 10/20/2024 1:18 PM EDT Pulse 93 09/19/2024 1:40 PM EDT Temperature - - Respiratory Rate - - Oxygen Saturation - - Inhaled Oxygen Concentration - - Weight 93.4 kg (206 lb) 10/20/2024 1:18 PM EDT Height 160 cm (5' 3 ) 10/20/2024 1:18 PM EDT Body Mass Index 36.49 10/20/2024 1:18 PM EDT Plan of Treatment Health Maintenance Due Date Last Done Comments CT Colonography 1959 Colonoscopy 1959 Colorectal Cancer Screening 1959 DXA SCAN 1959 FOBT/FIT 1959 Fit-DNA (Cologuard) 1959 Sigmoidoscopy 1959 Depression Screening (12+) 1971 HIV Screening 11/03/1974 Hepatitis C Screening 11/03/1977 Pap Smear 11/03/1980 Breast Cancer Screening 1999 Lipid Panel 11/03/2004 DTAP/TDAP/TD VACCINES (2 - Td or Tdap) 07/17/2006 Pneumococcal 50+ years (1 of 1 - PCV) 11/03/2009 Shingles Vaccine (Zoster) (1 of 2) 11/03/2009 COVID-19 VACCINE (3 - season) 01/16/202407/2020, 12/20/2020 Falls Risk Screening 05/17/2024 Influenza Vaccine (#1) 2025 Tobacco Cessation Counseling and Screening (12+) 10/20/2025 10/20/2024 Respiratory Syncytial Virus (RSV) Adult or (1 - 1-dose 75+ series) 11/03/2034 Procedures Procedure Name Priority Date/Time Associated Diagnosis Comments EXTERNAL IMAGING - MR Routine 10/16/2024 9:49 AM EDT EXTERNAL IMAGING - CT Routine 10/13/2024 11:36 AM EDT XR SPINE CERVICAL COMPLETE 4 VIEWS MIN Routine 09/19/2024 1:57 PM EDT Neck pain XR LUMBAR SPINE AP LATERAL FLEXION AND EXTENSION Routine 09/19/2024 12:59 PM EDT Lumbar pain from Last 3 Months Results * EXTERNAL IMAGING - MR (10/16/2024 9:49 AM EDT) Anatomical Region Laterality Modality Other us Historical Provider HEALTH MAINTENANCE Final Result * EXTERNAL IMAGING - CT (10/13/2024 11:36 AM EDT) Anatomical Region Laterality Modality Other us Historical Provider HEALTH MAINTENANCE Final Result * XR spine cervical complete 4 views min (09/19/2024 1:57 PM EDT) Anatomical Region Laterality Modality C-spine, T-spine, Neck X-Ray 09/19/2024 2:21 PM EDT Impressions 09/19/2024 2:38 PM EDT Degenerative and postoperative change as above. Minimal anterolisthesis of C2 on C3 on flexion. Images reviewed, interpreted, and dictated by Dr. Meme Johnson. Transcribed by Ember Parada PA-C. Narrative 09/19/2024 2:38 PM EDT CERVICAL SPINE SERIES. HISTORY: Chronic neck pain. [...] is minimal anterolisthesis at C2-C3 on flexion. Procedure Note Jules Johnson MD - 09/19/2024 CERVICAL SPINE SERIES. HISTORY: Chronic neck pain. [...] Meme Johnson. Transcribed by Ember Parada PA-C. Christopher Lovelace APRN IMG DIAGNOSTIC IMAGING ORDER TAMIR Final Result * X-ray lumbar spine AP lateral flexion and extension (09/19/2024 12:59 PM EDT) Anatomical Region Laterality Modality L-spine, T-spine, Abdomen, Pelvis X-Ray 09/19/2024 1:24 PM EDT Impressions 09/19/2024 1:30 PM EDT Severe degenerative change without acute fracture. Images reviewed, interpreted, and dictated by Dr. Meme Johnson. Transcribed by Indy Perry PA-C. Narrative 09/19/2024 1:30 PM EDT LUMBAR SPINE SERIES HISTORY: Chronic lumbar back [...] abnormal motion with flexion and extension views. Procedure Note Jules Johnson MD - 09/19/2024 LUMBAR SPINE SERIES HISTORY: Chronic lumbar back [...] abnormal motion with flexion and extension views. IMPRESSION: Severe degenerative change without acute fracture. Images reviewed, interpreted, and dictated by Dr. Meme Johnson. Transcribed by Indy Perry PA-C. Christopher Lovelace APRN IM DIAGNOSTIC IMAGING ORDER TAMIR Final Result from Last 3 Months Insurance [employer]
--- OUTSIDE RECORDS SUMMARY | 2024-11-21 13:49 | XMS_ITS | Data Portability ---
Author Organization [employer] Address [address] [place] [address] Care Team Providers Care Fast Food Team Member Name Role Phone JOES MARIA ALMANZA Primary Care Provider JUNIOR SOLITARIO Referring Provider [phone] Assessment Encounter Date Assessment Date Assessment LastModified [...] L2-3. However, there is a potential argument back tender cloth printing fusion higher based on the degree of [...] Recorded Time Spinal stenosis of lumbar region [id number] Active 018 JF PRICE MD [address] [place] [address], [id number] , [facility] 8 11:24:17 Problem Notes None recorded. Procedures Surgical History Date Name Laterality Status Provider Name and Address Organization Details Recorded Time Back Surgery completed [facility] 09/30/2017 10:38:29 Neck Surgery completed [facility] 09/30/2017 10:38:41 Unlisted px foot/toes completed [facility] 09/30/2017 10:38:49 Other completed [facility] 09/30/2017 10:38:58 Imaging Results None recorded. [...] Body mass index (BMI) Body weight Systolic And Diastolic Provider Name and Address Organization Details Last Updated DateTime 09/30/2017 160.02 cm 36.5 kg/m2 44460.03 g 132/82 mm[Hg] Raquel Villalobos [facility] 09/30/2017 10:59:21 Social History Question Answer Notes LastModified by Organizat ion Details LastModified Time Tobacco Smoking Status Never Smoker Raquel Villalobos [facility] 09/30/2017 10:38:22 What Was The Date Of [...] SNOMED-CT Code Diagnosis ICD10 Code Diagnosis Note [id number] JF PRICE MD [facility] [address] [place] [address] 09/30/2017 09:52:12 10/01/2017 11:11:22 Spinal stenosis of lumbar region [id number] M48.062 Minutes spent reviewing images, discussing the [...] Name 09/30/2017 2 [place] Jenni Curry [id number] Jenni Curyr 09/30/2017 1 [facility] PREFERRED CARE (PPO) [id number] Jenni Curry [id number] Jenni Curry 09/30/2017 1 [place] Jenni Curry [id number] Jenni Curry 09/30/2017 1 [facility] Jenni Curry [id number] Jenni Curry Notes Date Note Type Note Provider Name and Address Organization Details Recorded Time 09/30/2017 text/html 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 Rosa. JF PRICE MD [facility] [place], [address], [facility] 09/30/2017 11:54:32 OBGyn Episode No OBEpisode recorded.
--- OUTSIDE RECORDS SUMMARY | 2024-11-21 13:50 | XMS_ITS | Encounter Summary ---
Author Organization [employer] ([place], [place], [place], [place]) Address [address] [place] [address] Care Team Providers Care Supervisor Production Name Role Phone Unavailable Primary Care Provider Unavailabl e Encounter Details Date Type Department Care Team (Late st Contact Info) Description 10/16/2024 Orders Only [facility] Orth[facility] [address] [place] [address] Provider, MD Tessa [address] [place] [address] Social History Tobacco Use Types Packs/Day Years Used Date Smoking Tobacco: Never Smokeless Tobacco: Never Alcohol Use Standard Drinks/Week Comments Yes 6 (1 standard drink = 0.6 oz pur e alcohol) Comments Unknown Sex and Gender Information Value Date Recorded Sex Assigned at Not on file Legal Sex Female 3:36 PM CDT Gender Identity Not on file Sexual Orientation Not on file documented as of this encounter Plan of Treatment Not on file documented as of this encounter Procedures Procedure Name Priority Date/Time Associated Diagnosis Comments EXTERNAL IMAGING - MR Routine 10/16/2024 9:49 AM EDT documented in this encounter Results * EXTERNAL IMAGING - MR (10/16/2024 9:49 AM EDT) Anatomical Region Laterality Modality Other Historical Provider HEALTH MAINTENANCE Final Result documented in this encounter Visit Diagnoses Not on filedocumented in this encounter
--- OUTSIDE RECORDS SUMMARY | 2024-11-21 13:50 | XMS_ITS | Encounter Summary ---
Author Organization [employer] ([place], [place], [place], [place]) Address [address] [place] [address] Care Team Providers Care Computer Bookkeeper Name Role Phone Unavailable Primary Care Provider Unavailabl e Encounter Details Date Type Department Care Team (Late st Contact Info) Description 10/13/2024 Orders Only [facility] [address] [address] Provider, MD Tessa [address] [place] [address] Social History Tobacco Use Types Packs/Day [...] Date/Time Associated Diagnosis Comments EXTERNAL IMAGING - CT Routine 10/13/2024 11:36 AM EDT documented in this encounter Results * EXTERNAL IMAGING - CT (10/13/2024 11:36 AM EDT) Anatomical Region Laterality Modality Other Historical Provider HEALTH MAINTENANCE Final Result documented in this encounter Visit Diagnoses Not on filedocumented in this encounter
--- OUTSIDE RECORDS SUMMARY | 2024-11-21 13:50 | XMS_ITS | Clinical Summary ---
Author Organization Healthcare Address [address] [place] [address] Care Team Providers Care Concrete Products Machine Operator Name Role Phone Bentley Watson MD Primary Care Provider [phone] Family History Medical History Relation Name Comments Cardiac disorder Father Other cancer Father Cardiac disorder Mother Cataracts Mother Diabetes Mother Relation Name Status Comments Father Mother Social History Tobacco Use Types Packs/Day Years Used Date Smoking Tobacco: Never Alcohol Use Standard Drinks/Week Comments Yes 0 (1 standard drink = 0.6 oz pur e alcohol) Comments Unknown Sex and Gender Information Value Date Recorded Sex Assigned at Not on file Legal Sex Female 7:49 PM EDT Gender Identity Not on file Sexual Orientation Not on file Last Filed Vital Signs Vital Sign Reading Time Taken Comments Blood Pressure 126/82 11/10/2019 11:20 AM EDT Pulse 98 05/30/2019 4:40 PM EST Temperature 37.1 C (98.7 F) 04/25/2019 2:36 PM EST Respiratory Rate 16 04/25/2019 2:36 PM EST Oxygen Saturation - - Inhaled Oxygen Concentration - - Weight 98.7 kg (217 lb 9.5 oz) 11/10/2019 11:20 AM EDT Height 160 cm (5' 3 ) 11/10/2019 11:20 AM EDT Body Mass Index 38.55 11/10/2019 11:20 AM EDT Plan of Treatment Not on file Care Teams Concrete Products Machine Operator Relationship Specialty Start Date End Date Bentley Watson MD [facility] [place] [address] PCP - General 09/27/20
--- OUTSIDE RECORDS SUMMARY | 2024-11-21 13:50 | XMS_ITS | Referral Summary ---
Author Organization [employer] ([place], [place], [place], [place]) Address [address] [place] [address] Care Team Providers Care Loan Originator Name Role Phone Unavailable Primary Care Provider Unavailabl e Encounters Date Type Department Care Team Description 11/08/2024 Orders Only [address] [address] Christopher Lovelace APRN Sacroiliac joint dysfunction of right side (Primary Dx) 10/20/2024 12:45 PM EDT Office Visit [address] [address] Blake Telles DO Sacroiliac joint dysfunction of right side (Primary Dx); Lumbar spinal stenosis due to adjacent segment disease after fusion procedure 10/16/2024 Orders Only [address] [address] Tessa Carter MD 10/13/2024 Orders Only [address] [address] Tessa Carter MD 09/19/2024 1:51 PM EDT - 09/19/2024 11:59 PM EDT Hospital Encounter [facility] Diagnostic Imaging - [address] [place] [address] Christopher Lovelace APRN Neck pain Discharge Disposition: Home or Self Care 09/19/2024 Orders Only [address] [address] Christopher Lovelace APRN Neck pain (Primary Dx) 09/19/2024 Orders Only [facility] Diagnostic Imaging - [facility] [address] [facility] [address] [place] [address] Shyla James CMA 09/19/2024 Travel 09/19/2024 12:45 PM EDT - 09/19/2024 1:50 PM EDT Hospital Encounter [facility] Diagnostic Imaging - [facility] [address] [facility] [address] [place] [address] Christopher Lovelace APRN Lumbar pain Discharge Disposition: Home or Self Care 09/19/2024 12:30 PM EDT Office Visit [facility] Orthopedics - [facility] [address] [place] [address] Christopher Lovelace, ROBERT Spinal stenosis of lumbar region, unspecified whether neurogenic claudication present (Primary Dx); Lumbar pain; Cervical spine pain from Last 3 Months Allergies Active Allergy Reactions Criticality Noted Date [...] mg total) by mouth daily. 09/01/2024 Active Social History Tobacco Use Types Packs/Day Years [...] 10/20/2024 1:18 PM EDT Plan of Treatment Not on file Procedures Procedure Name Priority Date/Time Associated Diagnosis [...] Region Laterality Modality Other us Historical Provider MD HEALTH MAINTENANCE Final Result * EXTERNAL IMAGING - CT (10/13/2024 11:36 AM EDT) Anatomical Region Laterality Modality Other Historical Provider HEALTH MAINTENANCE Final Result * [...] by Indy Perry PA-C. Christopher Lovelace APRN IMG DIAGNOSTIC IMAGING ORDER TAMIR Final Result from Last 3 Months Insurance [employer]
--- OUTSIDE RECORDS SUMMARY | 2024-11-21 13:50 | XMS_ITS | Data Portability ---
Author Organization [facility] Medicine and Peds [place] Address [address] [place] [address] Assessment No assessment recorded. Plan of Treatment Reminders Order Date Submit Date Provider Last Modified By Organization Details Last Modified Time Details Appointments None recorded. Lab None recorded. Referral None recorded. Procedures None recorded. Surgeries None recorded. Imaging None recorded. Medication Orders Gemtesa 75 mg tablet 024 [email or web address] Not available 4 13:04:03 Patient TargetsNo targets recorded. Patient InstructionsNo instructions recorded. Reason for Referral None Reported. Problems Name Problem SNOMED Code Status Onset Date Resolution Date Notes Provider Name and Address Organization Details Recorded Time Diabetes mellitus 95482410 Active 024 Shannan capellan JULIET GUZMAN [facility] [place] 4 11:27:40 Seasonal allergy 686431972 Active 024 Shannan capellan JULIET GUZMAN [facility] [place] 4 11:27:49 Arthritis 7797352 Active 024 Shannan Alex marilia JULIET Pederson LPNT [facility] [place] 4 11:27:55 Anxiety 61306990 Active 024 Shannan capellan JULIET GUZMAN [facility] [place] 4 11:28:01 Depressive disorder 31427934 Active 024 Shannan capellan JULIET GUZMAN [facility] [place] 4 11:28:11 Problem Notes None recorded. Procedures Surgical History Date Name Laterality Status Provider Name and Address Organization Details Recorded Time Total Hysterectomy completed Lincoln GUZMAN [facility] [place] 12/15/2023 11:30:28 procedure on back completed Shannan GUZMAN [facility] [place] 12/15/2023 11:30:36 operation on neck completed Shannan GUZMAN [facility] [place] 12/15/2023 11:30:46 procedure on wrist completed Lincoln GUZMAN [facility] [place] 12/15/2023 11:30:54 procedure on foot completed Shannan UGZMAN [facility] [place] 12/15/2023 11:31:02 tonsillectomy completed Shannan GUZMAN [facility] [place] 12/15/2023 11:31:10 Imaging Results None recorded. Procedure Notes None recorded. Medical Equipment None Reported. Allergies Allergen ID Allergen Name Allergen Category Reaction Reaction Severity Criticality Documentation Date Start Date Code Code System Note Provider Name and Address Organization Details Recorded Time 167673 Substance with sulfonami de structure and antibacte rial mechanism of action (substanc e) medicatio n Not available Not available Not available 12/15/2023 39804 8003 SNOMED Shannan capellan, JULIET GUZMAN [facility] [place] 11:27:29 Medications Name Sig Start Date Stop [...] Updated DateTime 12/15/2023 160.02 cm 35.4 kg/m2 68996.47 g 97.9 [degF] Shannan Johnson [place] - LPNT - [place] & [place] 12/15/2023 11:27:20 Social History None recorded. Functional Status Question Answer Note LastModified by Organizat ion Details LastModified Time What is your level of alcohol consumption? Occasional [email or web address] Information not available 12/15/2023 Mental Status None recorded. Family History Relationship Description Onset Age of this Age Resolved Age Notes LastModified by Organization Details LastModified Time Brother Family history unknown dec [email or web address] Not available 2023 11:29:03 Father Family history unknown dec [email or web address] Not available 2023 11:29:03 Mother Family history unknown dec [email or web address] Not available 2023 11:29:41 Sister Family history unknown dec [email or web address] Not available 2023 11:29:48 Sister Family history unknown [email or web address] Not available 2023 11:29:53 Medical History No medical history recorded. Gynecological HistoryNo gynecological history recorded. Obstetrics History GPAL:G 0 P 0 0 0 0 Past Encounters Encounter ID Performer Location Encounter Start Date Encounter Closed Date Diagnosis/Indication Diagnosis SNOMED-CT Code Diagnosis ICD10 Code Diagnosis Note [id number] Junior Hayes Jr, MD [facility] Urology [address] [address] 12/15/2023 11:11:35 12/15/2023 12:30:22 Urge incontinence of urine 67513245 N39.41 patient with symptoms of daytime frequency, nocturia, urgency and urge incontinen ce. We discussed caffeine cessation and samples of Gemtesa were given. She will follow up in [address] ess incontinence 06980877 N39.3 we discussed the difference s between urge and stress incontinen ce. We discussed that stress incontinen ce is more of a surgical fix and that the urge incontinen ce needed to be brought under control 1st. He will exercises were recommende d. Cystocele 932593954 N81. 10 patient with grade 2 descensus of the bladder. No surgical indication at this point. Nocturia 126560141 R35.1 we discussed that nocturia can be [...] Member ID Buchanan Member ID Guarantor Name 01/23/2024 1 [place] Jenni Cortez Patricio [id number] Jenni Patricio Notes Date Note Type Note Provider Name [...] has dropped down. Junior Hayes Jr, MD [address] [place] [address], [address], [place], [address], [facility] - [place] - [place] & [place] 01/14/2024 13:04:52 OBGyn Episode No OBEpisode recorded.
--- OUTSIDE RECORDS SUMMARY | 2024-11-21 13:50 | XMS_ITS | Encounter Summary ---
Author Organization [employer] ([place], [place], [place], [place]) Address [address] [place] [address] Care Team Providers Care Floor Coverings Installer Name Role Phone Unavailable Primary Care Provider Unavailabl e Reason for Referral * Diagnostic X-Ray (Routine) - Authorized Specialty Diagnoses / Procedures Referred By August veliz Referred To Contact Radiology Diagnoses Sacroiliac joint dysfunction of right side Procedures XR PELVIS MIN 3 VIEWS Christopher Lovelace APRN [address] [place] [address] Phone: tel: fax: Referral ID Status Reason Start Date Expiration Date V isits Requested Visits Authorized [id number] Authorized 11/08/2024 11/08/2025 1 1 Encounter Details Date Type Department Care Team (Late st Contact Info) Description 11/08/2024 Orders Only [facility] Orthopedics - [address] [place] [id number] Christopher Lovelace APRN [address] [place] [address] Sacroiliac joint dysfunction of right side (Primary Dx) Social History Tobacco Use Types Packs/Day Years [...] as of this encounter Plan of Treatment Scheduled Orders Name Type Priority Associated Diagnoses Orde r Schedule XR PELVIS MIN 3 VIEWS Imaging Routine Sacroiliac joint dysfunction of right side Expected: 11/08/2024, Expires: 12/08/2025 documented as of this encounter Visit Diagnoses Diagnosis Sacroiliac joint dysfunction of right side- Primary documented in this encounter
--- NOTE | 2024-11-21 13:52 | CT_ITS ---
FINAL REPORT TECHNIQUE: Axial images were obtained of the lumbar spine by computed tomography. Coronal and sagittal reconstruction process performed. This study was performed with techniques to keep radiation doses as low as reasonably achievable (ALARA). Individualized dose reduction techniques using automated exposure control or adjustment of mA and/or kV according to the patient''s size were employed. CLINICAL HISTORY: SACROLLIAC JOINT DYSFUNCTION COMPARISON: MRI 08/03/2024 FINDINGS: There is streak artifact from posterior fusion hardware bridging L3-4. There is interbody fusion graft at L3-4, L4-5, and L5-S1. Advanced disc space narrowing is noted at T12-L1, L1-2, and L2-3. On the axial images, there is significant posterior osteophyte formation particularly evident at T12-L1 on the left, and bilaterally at L1-2 and L2-3. The SI joints are intact. There is tiny nonobstructing stone in the left renal collecting system measuring 2 mm. IMPRESSION: Degenerative/chronic changes without acute bony abnormality. Reviewed, Interpreted and Dictated by Hudson Khan MD Transcribed by Emma Lassiter Authenticated and . [facility]
== END 2024-11-21 23:59 | disposition home or self-care (01) ==
LOC: RAD 13:47
PROVIDERS: PCP Nurse Practitioner; Visit Provider Nurse Practitioner Family
DX: M47.816 Spondylosis without myelopathy or radiculopathy, lumbar region (principal); M48.061 Spinal stenosis, lumbar region without neurogenic claudication; M53.3 Sacrococcygeal disorders, not elsewhere classified; Z98.1 Arthrodesis status
CPT/HCPCS: 72131

== ENCOUNTER 2025-02-28 12:09 | Outpatient (CLI) | payer MEDICARE, SELFPAY ==
--- OUTSIDE RECORDS SUMMARY | 2025-01-23 12:11 | XMS_ITS | Encounter Summary ---
Author Organization [employer] ([place], [place], [place], [place]) Address [address] [place] [address] Care Team Providers Care Managing Member Name Role Phone Unavailable Primary Care Provider Unavailabl e Reason for Referral * CAT Scan (Routine) - Closed Specialty Diagnoses / Procedures Referred By Contac t Referred To Contact Radiology Diagnoses Chronic right SI joint pain Procedures CT pelvis without IV contrast Christopher Lovelace APRN [address] [place] [address] Phone: tel: fax: [facility] CT Imaging [address] [place] [address] Phone: tel: fax: Referral ID Status Reason Start Date Expiration Date Visits Re quested Visits Authorized [id number] Closed 11/27/2024 11/27/2025 1 1 Reason for Visit * CAT Scan (Routine) - Closed Specialty Diagnoses / Procedures Referred By Contac t Referred To Contact Radiology Diagnoses Chronic right SI joint pain Procedures CT pelvis without IV contrast Christopher Lovelace APRN [address] [place] [address] Phone: tel: fax: [facility] CT Imaging [address] [place] [address] Phone: tel: fax: Referral ID Status Reason Start Date Expiration Date Visits Re quested Visits Authorized [id number] Closed 11/27/2024 11/27/2025 1 1 Encounter Details Date Type Department Care Team (Latest Contact Info) Description 01/23/2025 12:11 PM EDT - 01/23/2025 11:59 PM EDT Hospital Encounter [facility] CT Imaging [address] [place] [address] Christopher Lovelace, PRIVATE BRANCH EXCHANGE INSTALLER [address] [place] [address] Chronic right SI joint pain Discharge Disposition: Home or Self Care Social History Tobacco Use Types Packs/Day Years [...] on file documented as of this encounter Medications at Time of Discharge amLODIPine (NORVASC) 5 MG tablet Take 1 tablet (5 mg total) by mouth daily. 08/25/2024 busPIRone (BUSPAR) 10 MG tablet Take 1 tablet (10 mg total) by mouth 2 (two) times daily. 09/01/2024 carvediloL (COREG) 25 MG tablet Take 1 tablet (25 mg total) by mouth 2 (two) times daily. 09/01/2024 cholecalciferol (VITAMIN D3) 1,250 mcg (50,000 unit) capsule Take 1 capsule (1,250 mcg total) by mouth twice a week. 09/01/2024 clonazePAM (KlonoPIN) 0.5 MG tablet Take 1 tablet (0.5 mg total) by mouth 2 (two) times daily. 09/01/2024 cyclobenzaprine (FLEXERIL) 10 MG tablet Take 1 tablet (10 mg total) by mouth. 09/13/2024 hydroCHLOROthiazi de (HYDRODIURIL) 25 MG tablet Take 1 tablet (25 mg total) by mouth daily. 08/25/2024 HYDROcodone-aceta minophen (NORCO) 5-325 mg per tablet Take 1 tablet by mouth every 6 (six) hours. Max Daily Amount: 4 tablets 08/04/2024 lisinopriL (ZESTRIL) 20 MG tablet Take 1 tablet (20 mg total) by mouth daily. 09/01/2024 meloxicam (MOBIC) 15 MG tablet Take 1 tablet (15 mg total) by mouth daily. 08/25/2024 metFORMIN (GLUCOPHAGE-XR) 500 MG 24 hr tablet SMARTSI Tablet(s) By Mouth Every Evening 09/01/2024 predniSONE (DELTASONE) 20 MG tablet Take 1 tablet (20 mg total) by mouth 2 (two) times daily. 09/13/2024 traZODone (DESYREL) 100 MG tablet Take 1 tablet (100 mg total) by mouth nightly. 09/01/2024 venlafaxine XR (EFFEXOR-XR) 150 MG 24 hr capsule Take 1 capsule (150 mg total) by mouth daily. 09/01/2024 documented as of this encounter Plan of Treatment Not on file documented as of this encounter Procedures Procedure Name Priority Date/Time Associated Diagnosis Comments CT PELVIS WITHOUT IV CONTRAST Routine 01/23/2025 12:32 PM EDT Chronic right SI joint pain documented in this encounter Results * CT pelvis without IV contrast (01/23/2025 12:32 PM EDT) Anatomical Region Laterality Modality Abdomen, Pelvis Computed Tomogra phy (CT) 01/23/2025 2:07 PM EDT Impressions 01/23/2025 2:13 PM EDT 1. No fracture. 2. Degenerative changes of the SI joints, greater on the right side. This study was performed using dose reduction techniques to achieve radiation exposure as low as reasonably achievable (ALARA) Images reviewed, interpreted, and dictated by Daniel Rogers MD Narrative 01/23/2025 2:[address] OSSEOUS PELVIS HISTORY: Pain. TECHNIQUE: Thin section axial CT with sagittal and coronal reconstructions. FINDINGS: No fracture is present. There is no subluxation or dislocation. Mild degenerative changes of the SI joints are seen, greater on the right side, with vacuum change noted of the right SI joint. No erosions or ankylosis is present. Hip joints are unremarkable. Surgical changes of lumbosacral fusion are present. Patient is status post hysterectomy. Procedure Note Daniel Rogers MD - 01/23/2025 CT OSSEOUS PELVIS HISTORY: Pain. TECHNIQUE: Thin section axial CT with sagittal and coronal reconstructions. FINDINGS: No fracture is present. There is no subluxation or dislocation. Mild degenerative changes of the SI joints are seen, greater on the right side, with vacuum change noted of the right SI joint. No erosions or ankylosis is present. Hip joints are unremarkable. Surgical changes of lumbosacral fusion are present. Patient is status post hysterectomy. IMPRESSION: 1. No fracture. 2. Degenerative changes of the SI joints, greater on the right side. This study was performed using dose reduction techniques to achieve radiation exposure as low as reasonably achievable (ALARA) Images reviewed, interpreted, and dictated by Daniel Rogers MD Christopher Lovelace APRN IMG CT ORDERABLES Final Resu lt documented in this encounter Visit Diagnoses Diagnosis Chronic right SI joint pain Disorders of sacrum documented in this encounter
--- OUTSIDE RECORDS SUMMARY | 2025-02-05 11:30 | XMS_ITS | Encounter Summary ---
Author Organization [employer] ([place], [place], [place], [place]) Address [address] [place] [address] Care Team Providers Care Cotton Inspector Name Role Phone Christopher Lovelace METEOROLOGICAL EQUIPMENT REPAIRER Unavailable [phone] Reason for Visit * Reason Comments Follow-up Follow up post SI in jections at [facility]. CT Pelvis done at [facility]. Encounter Details Date Type Department Care Team (Late st Contact Info) Description 02/05/2025 11:30 AM EDT Office Visit [facility] Orthopedics - [address] [place] [address] Christopher Lovelace, METEOROLOGICAL EQUIPMENT REPAIRER [address] [place] [address] Sacroiliac joint dysfunction of right side [...] Sign Reading Time Taken Comments Blood Pressure 97/68 02/05/2025 11:41 AM EDT Pulse 90 02/05/2025 11:41 AM EDT Temperature - - Respiratory Rate - - Oxygen Saturation - - Inhaled Oxygen Concentration - - Weight 89.8 kg (198 lb) 02/05/2025 11:41 AM EDT Height 160 cm (5' 3 ) 02/05/2025 11:41 AM EDT Body Mass Index 35.07 02/05/2025 11:41 AM EDT documented in this encounter Progress Notes * Christopher Lovelace, METEOROLOGICAL EQUIPMENT REPAIRER - 02/05/2025 11:30 AM EDT The following consent language was reviewed verbally with the patient in full: Wen, I am using a tool to help me do my notes. It is recording our conversation and creates my notes automatically and I can focus on our discussion instead of typing in the room. Is that okay with you? The patient demonstrated understanding and verbally agreed to the above consent language. All questions were addressed, and the patient provided informed consent to proceed. ORTHO NOTE: History of Present Illness: History of Present Illness Jenni Curry is a 64 year old female with history of adjacent segment disease and suspicion of right SI joint dysfunction who presents to clinic today for follow-up. Patient was previously seen in the office and noted to be likely more symptomatic with her right SIjoint pain versus adjacent segment disease. Secondary to this Dr. Ricks referred for SI joint injections. She experiences right-sided SI joint pain, with degenerative changes and arthritis noted in both SIjoints on a CT scan of the pelvis. She received two right sided SI joint injections; the first provided significant relief for several days, while the second offered partial relief with pain reduction between 75% and 100%. This right SI joint pain affects her daily life, particularly in certain postures, and she has difficulty sleeping due to frequent position changes. She has no shooting pain down her leg. Physical Exam: General appearance: alert, appears stated age and cooperative Musc: 0 out of 5 strength in the right EHL and TA, otherwise 5 out of 5 motor strength of the rightlower extremity. The patient has 5 out of 5 motor strength of the left lower extremity. Patient haspositive Matthew, positive Lamine on the right, positive thigh thrust on the right. Vitals: Blood pressure 97/68, pulse 90, height 1.6 m (5' 3 ), weight 89.8 kg (198 lb). Laboratory Data: No results found for this visit on 02/05/25 (from the past 24 hours). Microbiology Results (last 7 days) No results found for the last 168 hours. Radiology: CT pelvis without IV contrast Narrative: CT OSSEOUS PELVIS HISTORY: Pain. TECHNIQUE: Thin [...] are present. Patient is status post hysterectomy. Impression: 1. No fracture. 2. Degenerative changes of the SI joints, greater on the right side. This study was performed using dose reduction techniques to achieve radiation exposure as low as reasonably achievable (ALARA) Images reviewed, interpreted, and dictated by Daniel Rogers MD Radiology Results (last 7 days) No results found for the last 168 hours. 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 Previous injections identified SI joint as pain source, affecting quality of life. - Refer to Dr. Ricks for evaluation and scheduling of potential sacroiliac joint fusion surgery. She is to notify the office of any new complaints or concerns. She verbalized understanding of the findings, is agreeable to the plan of care Signed: Christopher Lovelace APRN 02/05/2025 12:18 PM documented in this encounter Plan of Treatment Not on file documented as of this encounter Visit Diagnoses Diagnosis Sacroiliac joint dysfunction of right side- Primary documented in this encounter Care Teams Cotton Inspector Relationship Specialty Start Date End Date Christopher Lovelace APRN [address] [place] [address] Nurse Practitioner Orthopedic Surgery 02/05/25 documented as of this encounter
--- OUTSIDE RECORDS SUMMARY | 2025-02-15 12:15 | XMS_ITS | Encounter Summary ---
Author Organization [email or web address] ([place], [place], [place], [place]) Address [address] [place] [address] Care Team Providers Care [place] Name Role Phone Christopher Lovelace [employer]OT[employer] Unavailable [phone] Reason for Visit * Reason Comments Follow-up Discuss surgery. Per [place]. Encounter Details Date Type Department Care Team (Late st Contact Info) Description 02/15/2025 12:15 PM EDT Office Visit [facility] - [address] [id number] Blake Telles DO [address] [place] [id number] Chronic right SI joint pain (Primary Dx) Social History Tobacco Use Types [...] Sign Reading Time Taken Comments Blood Pressure 128/81 02/15/2025 11:40 AM EDT Pulse - - Temperature - - Respiratory Rate - - Oxygen Saturation - - Inhaled Oxygen Concentration - - Weight 88.9 kg (196 lb) 02/15/2025 11:40 AM EDT Height 160 cm (5' 3 ) 02/15/2025 11:40 AM EDT Body Mass Index 34.72 02/15/2025 11:40 AM EDT documented in this encounter Progress Notes * Christopher Lovelace, [employer] G[employer]OT[employer]OR - 02/15/2025 12:15 PM EDT ORTHOPEDIC SURGERY HISTORY AND PHYSICAL History of Present Illness: Jenni Curry is a 64 y.o. female, who presents to the clinic today for follow-up. Patient is well-known to the orthopedic spine practice. She has history of adjacent segment disease, as well as right SI joint dysfunction. Patient was noted to be more symptomatic from the right SI joint pain. Patient received 2 injections, which she notes gave her near 100% of pain relief for short period of time. Patient does continue to note right posterior pelvic pain. She denies any radiating radicular pain. She notes she has difficulty sleeping secondary to the pain. She does do frequent position changes. She presents to the clinic today to discuss potential SI joint fusion. Past Medical History: Past Medical History: Diagnosis Date Anxiety and depression Diabetes mellitus (HCC) Hypertension Past Surgical History: Past Surgical History: Procedure Laterality Date BACK SURGERY X3 BILATERAL WRIST CERVICAL SPINE SURGERY X3 HYSTERECTOMY RIGHT FOOT Allergies: Allergies Allergen Reactions Ketamine Shortness Of Breath Keflex [Cephalexin] Medications: Current Outpatient Medications Medication [...] tablet SMARTSI Tablet(s) By Mouth Every Evening potassium citrate-citric acid (POLYCITRA) 1,100-334 mg/5 mL solution 3 times daily with meals predniSONE (DELTASONE) 20 mg, 2 times daily [...] Not on file Social Drivers of Health Food Insecurity: Not on file Transportation: Not on file Family History: Family History Problem Relation Name Age of Onset High blood pressure Mother Diabetes Mother Stroke Father Review of Systems: No fevers, chills, nausea or vomiting is noted. Rest of other pertinent review of systems reviewed otherwise negative except as dictated in the HPI. Physical Exam: General appearance: alert, appears stated age and cooperative Musc:0 out of 5 strength in the right EHL and TA, otherwise 5 out of 5 motor strength of the right lower extremity. The patient has 5 out of 5 motor strength of the left lower extremity. Patient has positive Matthew, positive Lamine on the right, positive thigh thrust on the right. Vitals: Blood pressure 128/81, height 1.6 m (5' 3 ), weight 88.9 kg (196 lb). Laboratory Data: No results found for this visit on 02/15/25 (from the past 24 hours). Microbiology Results (last 7 days) No results found for the last 168 hours. Radiology: Radiology Results (last 7 days) No results found for the last [address] pelvis without IV contrast Narrative: CT [...] interpreted, and dictated by Daniel Rogers MD Assessment: #1 adjacent segment disease #2 right SI joint dysfunction #3 lumbar stenosis Plan: Extensive discussion was had with the patient today. MRI imaging of the lumbar spine, and thoracic spine was reviewed. CT of the pelvis was again reviewed. Patient does have imaging findings consistent with adjacent segment disease. I explained to the patient that in the future she would likely need extension of prior fusion However, the patient appears to be more symptomatic at this time from her right SI joint pain. She responded well to 2 prior injections. She is interested in surgical intervention for the right SI joint. Patient will be scheduled for right SI joint fusion Patient verbalized understanding of findings, agreeable to the plan of care. Verbalized understanding of risk and benefits associated with surgical intervention including risk of anesthesia complications, pneumothorax, infection, etc. Verbalized good understanding of risk and benefits, and would like to proceed with surgical intervention. Usual anesthesia preoperative evaluation, and preoperativelabs to be obtained. Orthopedic spine surgery will continue to follow Signed: Christopher Lovelace APRN 02/15/2025 11:57 AM Scribe Statement By signing my name below, I, Christopher Lovelace APRN, attest that this documentation has been preparedunder the direction and in the presence of Blake Telles DO. I completed the following sections of the note: HPI- History Present Illness, ROS- Review of Systems, PE-Physical Exam, Assessment, and Plana Electronically Signed: Christopher Lovelace APRN, Scribe. 02/15/2025 11:57 AM EDT. Cosigned by Blake Telles DO at 02/15/2025 1:26 PM EDT Associated attestation - Blake Telles DO - 02/15/2025 12:26 PM CDT Blake Almanzar DO, personally performed the services described in this documentation, as scribed by Christopher Lovelace APRN in my presence, and it is both accurate and complete. documented in this encounter H&P Notes * Christopher Lovelace, [employer]OT[employer]OR - 02/15/2025 12:15 PM EDT ORTHOPEDIC SURGERY HISTORY AND PHYSICAL History of Present Illness: Jenni uCrry is a 64 y.o. female, who presents to the clinic today for follow-up. Patient is well-known to the orthopedic spine practice. She has history of adjacent segment disease, as well as right SI joint dysfunction. Patient was noted to be more symptomatic from the right SI joint pain. Patient received 2 injections, which she notes gave her near 100% of pain relief for short period of time. Patient does continue to note right posterior pelvic pain. She denies any radiating radicular pain. She notes she has difficulty sleeping secondary to the pain. She does do frequent position changes. She presents to the clinic today to discuss potential SI joint fusion. Past Medical History: Past Medical History: Diagnosis Date Anxiety and depression Diabetes mellitus (HCC) Hypertension Past Surgical History: Past Surgical History: Procedure Laterality Date BACK SURGERY X3 BILATERAL WRIST CERVICAL SPINE SURGERY X3 HYSTERECTOMY RIGHT FOOT Allergies: Allergies Allergen Reactions Ketamine Shortness Of Breath Keflex [Cephalexin] Medications: Current Outpatient Medications Medication [...] tablet SMARTSI Tablet(s) By Mouth Every Evening potassium citrate-citric acid (POLYCITRA) 1,100-334 mg/5 mL solution 3 times daily with meals predniSONE (DELTASONE) 20 mg, 2 times daily [...] Not on file Social Drivers of Health Food Insecurity: Not on file Transportation: Not on file Family History: Family History Problem Relation Name Age of Onset High blood pressure Mother Diabetes Mother Stroke Father Review of Systems: No fevers, chills, nausea or vomiting is noted. Rest of other pertinent review of systems reviewed otherwise negative except as dictated in the HPI. Physical Exam: General appearance: alert, appears stated age and cooperative Musc:0 out of 5 strength in the right EHL and TA, otherwise 5 out of 5 motor strength of the right lower extremity. The patient has 5 out of 5 motor strength of the left lower extremity. Patient has positive Matthew, positive Lamine on the right, positive thigh thrust on the right. Vitals: Blood pressure 128/81, height 1.6 m (5' 3 ), weight 88.9 kg (196 lb). Laboratory Data: No results found for this visit on 02/15/25 (from the past 24 hours). Microbiology Results (last 7 days) No results found for the last 168 hours. Radiology: Radiology Results (last 7 days) No results found for the last [address] pelvis without IV contrast Narrative: CT [...] interpreted, and dictated by Daniel Rogers MD Assessment: #1 adjacent segment disease #2 right SI joint dysfunction #3 lumbar stenosis Plan: Extensive discussion was had with the patient today. MRI imaging of the lumbar spine, and thoracic spine was reviewed. CT of the pelvis was again reviewed. Patient does have imaging findings consistent with adjacent segment disease. I explained to the patient that in the future she would likely need extension of prior fusion However, the patient appears to be more symptomatic at this time from her right SI joint pain. She responded well to 2 prior injections. She is interested in surgical intervention for the right SI joint. Patient will be scheduled for right SI joint fusion Patient verbalized understanding of findings, agreeable to the plan of care. Verbalized understanding of risk and benefits associated with surgical intervention including risk of anesthesia complications, pneumothorax, infection, etc. Verbalized good understanding of risk and benefits, and would like to proceed with surgical intervention. Usual anesthesia preoperative evaluation, and preoperativelabs to be obtained. Orthopedic spine surgery will continue to follow Signed: Christopher Lovelace APRN 02/15/2025 11:57 AM Scribe Statement By signing my name below, IChristopher APRN, attest that this documentation has been preparedunder the direction and in the presence of Blake Telles DO. I completed the following sections of the note: HPI- History Present Illness, ROS- Review of Systems, PE-Physical Exam, Assessment, and Plana Electronically Signed: Christopher Lovelace APRN, Scribe. 02/15/2025 11:57 AM EDT. Cosigned by Blake Telles DO at 02/15/2025 1:26 PM EDT Associated attestation - Blake Telles DO - 02/15/2025 12:26 PM CDT Blake Almanzar DO, personally performed the services described in this documentation, as scribed by Christopher Lovelace APRN in my presence, and it is both accurate and complete. documented in this encounter Plan of Treatment Not on file documented as of this encounter Visit Diagnoses Diagnosis Chronic right SI joint pain- Primary Disorders of sacrum documented in this encounter Care Teams [place] Relationship Specialty Start Date End Date Christopher Lovelace, [employer]OT[employer]OR [address] [place] [address] Nurse Practitioner Orthopedic Surgery 02/05/25 documented as of this encounter
--- OUTSIDE RECORDS SUMMARY | 2025-02-28 12:13 | XMS_ITS | Data Portability ---
Author Organization [facility] Address [address] [facility] [address] [place] [address] Care Team Providers Care Rest Room Attendant Name Role Phone ELICEO SON Referring Provider HALIMA PEREIRA Primary Care Provider [phone] PRATIMA CARBAJAL Traffic Superintendent DILLON PAZ Pain Management Assessment Encounter Date Assessment Date Assessment LastModified by Organization Details LastModified Time 12/08/2024 12/08/2024 Pain History: This is a 64-year-old female with right-sided low back pain She has chronic low back pain, pain does not radiate. Denies incontinence or myelopathy. Prior surgical history includes over 6 neck and back surgeries, she was seen by Dr. Son, who recommended SI joint workup. She is a possible candidate for SI fusion. No prior SI joint injection, currently using Klonopin, hydrocodone, NSAIDs for pain control. Physical therapy in the past without benefit. Past Medical History: Anxiety, diabetes using metformin, hypertension Imaging: Lumbar MRI requested Cervical plain films demonstrate multilevel spondylosis with posterior cervical fusion intact Lumbar plain films reviewed today, L3-4 fusion with sclerosis of right SI joint, multilevel spondylosis Surgical evaluation/ history: Cervical and lumbar spine surgery x 6, referred by Dr. Son, possible SI fusion candidate Conservative Treatments: Over 6 weeks of PT in the past without benefit for neck and low back pain Interventional treatment history: No recent injection therapy Previous analgesics: Opioids, benzodiazepines Current analgesics: Opioids, benzodiazepines Compliance Monitoring: Overall high risk for opioid therapy given benzodiazepine use ORT, EMMANUEL reviewed No UDS today Anticoagulant/Anti platelet Medications: None Not available 12/08/2024 10:25:29 Plan of Treatment Reminders Order Date Submit Date Provider Last Modified By Organization Details Last Modified Time Details Appointments CCM Follow Up 2024 03:00P Naomi Orourke, Medical Care Plastering Supervisor Not available Not available Not available Lab None recorded. Referral None recorded. Procedures remote therapeut ic monitorin g to monitor musculosk eletal system (PROC) 2024 025 Not available 12/08/2024 10:26:16 sacroilia c joint injection (PROC) - #1 Right SI Joint injection with Dr.Milbur zabala in [place] - no sedation 2024 025 [email or web address] Not available 12/08/2024 11:01:51 injection , sacroilia c joint (PROC) - #2 RT SI Joint injection in 2 weeks for SI fusion workup THERAPEUT IC 2024 025 [email or web address] Not available 12/15/2024 12:17:29 Surgeries None recorded. Imaging None recorded. Medication Orders None recorded. Patient TargetsNo targets recorded. Patient Instructions Encounter Date Encounter Id Patient Instructions Last Modified By Organization Details Last Modified Time 12/08/2024 [id number] behavioral healt h screen* [email or web address] Not available 01/02/2025 11:23:20 sacroiliac pain: exercises Not available 12/08/2024 10:26:16 Reason for Referral None Reported. Problems Name Problem SNOMED Code Status Onset Date Resolution Date Notes Provider Name and Address Organization Details Recorded Time Chronic pain 76765373 Active 2024 Sadie [place], [place] [facility] 5 09:43:48 Lumbar radiculopathy 678663886 Active 2024 Sad[place], [place] [facility] 09:43:48 Lumbar spondylosis 873788095 Active 2024 Sadie xavier null, [place] [facility] 5 09:43:48 Lumbar post-laminecto my syndrome 808494438 Active 2024 JULIET Lutz [facility] 5 10:19:23 Cervical post-laminecto my syndrome 266016557 Active 2024 JULIET Lutz [facility] 5 10:19:29 Inflammation of sacroiliac joint 45507758 Active 2024 JULIET Lutz [facility] 10:19:46 Problem Notes None recorded. Procedures Surgical History Date Name Laterality Status Provider Name and Address Organization Details Recorded Time 5 SI Joint Injection (Fluoro) completed DILLON PAZ MD [address] [place] [address], [phone], [facility] 12/20/2024 12:44:57 5 SI Joint Injection (Fluoro) completed DILLON PAZ MD [address] [place] [address], [phone], [facility] 12/08/2024 12:32:48 Cervical Spine Surgery completed Sadie CHUNG [facility] 12/08/2024 10:19:01 Lumbar Spine Surgery completed Sadie CHUNG [facility] 12/08/2024 10:19:12 Imaging Results None recorded. Procedure Notes None recorded. Medical Equipment None Reported. Allergies Allergen ID Allergen Name Allergen Category Reaction Reaction Severity Criticality Documentation Date Start Date Code Code System Note Provider Name and Address Organization Details Recorded Time 053964 Keflex medicatio n Not available Not available Not available 12/08/2024 79066 7 RxNorm JULIET Lutz [facility] 09:53:23 652690 ketamine medicatio n Not available Not available Not available 12/08/2024 6130 RxNorm JULIET Lutz [facility] 09:54:01 Medications Name Sig Start Date Stop Date Status Note LastModified by Organization Details LastModified Time cyclobenzap rine 10 mg tablet TAKE ONE TABLET BY MOUTH EVERY 8 HOURS MAY CAUSE DROWSINES S active Not Available Not Available No t Available pioglitazon e 15 mg tablet TAKE ONE TABLET BY MOUTH EVERY DAY active Not Available Not Available No t Available carvedilol 25 mg tablet TAKE ONE TABLET BY MOUTH TWICE DAILY FOR BLOOD PRESSURE --TAKE WITH FOOD-- active Not Available Not Available No t Available ketoconazol e 2 % shampoo USE A SHAMPOO TO THE SCALP THREE TIMES A WEEK. LATHER FOR 5 MINUTES, THEN RINSE 12/08 completed Not Available Not Available Not Available hydrocodone 5 mg-acetamin ophen 325 mg tablet TAKE ONE TABLET BY MOUTH EVERY 6 HOURS active Not Available Not Available No t Available meloxicam 15 mg tablet TAKE ONE TABLET BY MOUTH EVERY DAY --TAKE WITH FOOD-- active Not Available Not Available No t Available lisinopril 20 mg tablet TAKE ONE TABLET BY MOUTH EVERY DAY active Not Available Not Available No t Available prednisone 20 mg tablet TAKE ONE TABLET BY MOUTH TWICE DAILY FOR SIX DAYS -- FINISH ALL MEDICINE -- --TAKE WITH FOOD-- 12/08 completed Not Available Not Available Not Available alendronate 70 mg tablet TAKE ONE TABLET BY MOUTH ONCE A WEEK 30 minutes BEFORE THE first food, beverage, OR medicine of THE DAY with plain water. 12/08 completed Not Available Not Available Not Available clonazepam 0.5 mg tablet TAKE ONE TABLET BY MOUTH TWICE DAILY active Not Available Not Available No t Available venlafaxine ER 150 mg capsule,ext ended release 24 hr TAKE ONE CAPSULE BY MOUTH EVERY DAY --TAKE WITH FOOD-- active Not Available Not Available No t Available phentermine 37.5 mg tablet Take one tablet by mouth daily (30 minutes before or 1-2 hour(s) after breakfast ). 12/08 completed Not Available Not Available Not Available amlodipine 5 mg tablet TAKE ONE TABLET BY MOUTH EVERY DAY active Not Available Not Available No t Available amoxicillin 875 mg tablet TAKE ONE TABLET BY MOUTH TWICE DAILY FOR 5 DAYS -- FINISH ALL MEDICINE -- 12/08 completed Not Available Not Available Not Available trazodone 100 mg tablet TAKE ONE TABLET BY MOUTH EVERY DAY AT BEDTIME active Not Available Not Available No t Available buspirone 10 mg tablet TAKE ONE TABLET BY MOUTH TWICE DAILY active Not Available Not Available No t Available hydrocortis one 2.5 % topical cream apply a thin layer topically TO THE face TWICE DAILY 12/08 completed Not Available Not Available Not Available hydrochloro thiazide 25 mg tablet TAKE ONE TABLET BY MOUTH EVERY DAY active Not Available Not Available No t Available metformin ER 500 mg tablet,exte nded release 24 hr TAKE ONE TABLET BY MOUTH EVERY EVENING active Not Available Not Available No t Available nitrofurant oin monohydrate /macrocryst als 100 mg capsule TAKE ONE CAPSULE BY MOUTH EVERY TWELVE HOURS FOR 7 DAYS -- FINISH ALL MEDICINE -- --TAKE WITH FOOD-- 12/08 completed Not Available Not Available Not Available cholecalcif tanja (vitamin D3) 1,250 mcg (50,000 unit) capsule TAKE ONE CAPSULE BY MOUTH TWICE A WEEK active Not Available Not Available No t Available Vitals Date Recorded Body height Body mass index (BMI) Body weight Pain severity - 0-10 verbal numeric rating [Score] - Reported Heart rate Oxygen saturation Oxygen saturation in Arterial blood by Pulse oximetry Systolic And Diastolic Provider Name and Address Organization Details Last Updated DateTime 160.02 cm 36.1 kg/m2 20854.8 4 g 8 68 /min 97 % 97 % 122/75 mm[Hg] Sadie xavier [facility] 09:53:19 Social History Question Answer Notes LastModified by [employer] Details LastModified Time Tobacco Smoking Status Never Smoker Sadie capellan [facility] 12/08/2024 09:54:19 Do You Have An Advance Directive? No Information not available 12/08/2024 What Type Of Diet Are You Following? REGULAR Information not available 12/08/2024 What Is The Highest Grade Or Level Of School You Have Completed Or The Highest Degree You Have Received? [id number] Information not available 12/08/2024 Do You Have A Medical Power Of Acetylene Torch Solderer? No Information not available 12/08/2024 What Was The Date Of Your Most Recent Tobacco Screening? 12/08/2024 Information not available 12/08/2024 What Is Your Relationship Status? Information not available 12/08/2024 Sex: Unknown Functional Status Question Answer Note LastModified by [employer] ion Details LastModified Time Do you use any illicit or recreational drugs? No Information not available 12/08/2024 What is your level of alcohol consumption? None Information not available 12/08/2024 Are you currently employed? No Information not available 12/08/2024 Mental Status None recorded. Family History Nothing Reported. Medical History Condition Response Bipolar Disease N Coronary Artery Disease N Gout N Seizure Disorder N Thyroid Disease N Atrial Fibrillation N Hernia N Head Trauma/Injury N COPD N Depression N Anxiety Disorder N Acid Reflux (GERD) N Cancer N Skin Disorder N Stroke N High Cholesterol N Liver Disease N Rheumatoid Arthritis N Fibromyalgia N Headaches N Autoimmune Disease N Kidney Disease N Osteoarthritis N Neurosurgery N DVT N Peptic Ulcer Disease N Anemia N Heart Attack (DE) N Diabetes N Cardiomyopathy N Bleeding Disorder N CHF N AIDS/HIV N Inflammatory Bowel Disease N Dementia N Asthma N Substance Abuse N Sleep Apnea N Hepatitis N Heart Disease N Pulmonary Embolism N Chronic Low Back Pain N Hypertension Y Osteoporosis Y Gynecological HistoryNo gynecological history recorded. Obstetrics History GPAL:G 0 P 0 0 0 0 Past Encounters Encounter ID Performer Location Encounter Start Date Encounter Closed Date Diagnosis/Indication Diagnosis SNOMED-CT Code Diagnosis ICD10 Code Diagnosis IMO Codes Diagnosis Note [id number] DILLON PAZ MD [place] [address] [place] [address] 12/08/2024 09:29:30 12/08/2024 10:47:03 Chronic pain 61641298 G89.29 Lumbar post-laminectomy syndrome 013925056 M96.1 715209 [facility] as an option given history of washout and infection for lumbar spine surgery Cervical post-laminectomy syndrome 955994972 M96.1 697744 Inflammati on of sacroiliac joint 65632178 M46.1 1659 I recommend right diagnostic sacroiliac joint injection. Pending results, proceed with therapeuti c injection for SI fusion workup. She has 4 provocativ e maneuvers for the right SI joint and no diagnosis better explains her pain. [id number] MD Gabriela VELASQUEZ [address] [place] [address] 12/20/2024 10:14:07 12/20/2024 11:15:01 Inflammation of sacroiliac joint 70771895 M46.1 1659 I recommend right diagnostic sacroiliac joint injection. Pending results, proceed with therapeuti c injection for SI fusion workup. She has 4 provocativ e maneuvers for the right SI joint and no diagnosis better explains her pain. Goals Section Goal Description Progress Status Start Date LastModified by Organization Details LastModified Time Adequate Sleep Achieves adequate, well-rested sleep with minimal disruption sustaining active 2024 Pratima Carbajal Information not available 02/19/2025 20:34:05 Exercise Regularl y Follows a regular exercise regimen or instructed exercise plan as per care team recommendation (s) sustaining active 2024 Pratima Carbajal Information not available 02/19/2025 20:34:49 Quality of Life Reports satisfaction with quality of life achieved active 2024 Pratima Erin Information not available 02/19/2025 20:35:04 Family and Social Support Reports family and/or social support needs are met achieved active 2024 Pratima Erin Information not available 02/19/2025 20:35:23 Mobility Maintains or improves baseline mobility and/or moves independently sustaining active 2024 Pratima Jenifferson Information not available 02/19/2025 20:35:52 Medicati on Regimen Follows medication regimen as per care team recommendation (s) sustaining active 2024 Pratima Jenifferson Information not available 02/19/2025 20:36:05 Activiti es of Daily Living Performs activities of daily living independently or with minimal assistance sustaining active 2024 Pratima Jenifferson Information not available 02/19/2025 20:36:21 Effectiv e Coping Manages life events with effective coping methods achieved active 2024 Pratima Jenifferson Information not available 02/19/2025 20:36:40 Follow-u p Appointm ent(s) Attends referral and/or follow-up appointment(s) as per care team recommendation (s) sustaining active 2024 Pratima Erin Information not available 02/19/2025 20:37:27 Home/Env ironment Safety Reports having a safe environment that promotes independence and prevents injury achieved active 2024 Pratima Jenifferson Information not available 02/19/2025 20:37:50 Diet Adherenc e Follows prescribed or recommended diet sustaining active 2024 Pratima Carbajal Information not available 02/19/2025 20:38:02 Knowledg e of Disease or Conditio n Demonstrates understanding of disease(s) or condition(s) achieved active 2024 Pratima Carbajal Information not available 02/19/2025 20:38:29 Self-Adv ocacy Advocates effectively for self by communicating desires, feelings and concerns to care team achieved active 2024 Pratima Carbajal Information not available 02/19/2025 20:38:45 Pain Manageme nt Plan Reports satisfaction with current pain management plan (e.g., medication and non-medication pain relief interventions) sustaining active 2024 Pratima Carbajal Information not available 02/19/2025 20:39:23 Weight Maintena nce Exhibits stable weight with normal fluctuation sustaining active 2024 Pratima Carbajal Information not available 02/19/2025 20:39:38 Effectiv e Pain Manageme nt Reports or exhibits adequate pain relief as determined by appropriate pain scale sustaining active 2024 Pratima Carbajal Information not available 02/19/2025 20:40:04 Blood Pressure Maintains blood pressure goal as defined by care team None active 2024 Pratima Carbajal Information not available 01/19/2025 16:15:49 Balance Maintains or improves baseline balance sustaining active 2024 Pratima Carbajal Information not available 02/19/2025 20:40:31 Health Concerns Section Related Observation LastModified by Organization Detai ls LastModified Time None Recorded Concern Status LastModified by Organization Details LastModified Time Chronic pain Active Pratima Carbajal Not Available 09/2024 16:13:28 Hypertension Active Pratima Carbajal Not Available 09/2024 16:14:01 Advance Directives Directive N: Payers Insurance Date Sequence Insurance Name Policy Number Policy Buchanan Covered Member ID Buchanan Member ID Guarantor Name 02/16/2025 1 [employer] (MEDICARE REPLACEMENT/ ADVANTAGE - PPO) [id number] Jenni Curry [id number] Jenni Curry Notes Date Note Type Note Provider Name and Address Organization Details Recorded Time 12/08/2024 text/html Low back painRep orted by PatientHPIFor associated symptoms, patient reportsnumbnessandting ling. For functional assessment of adls, patient reportsdifficulty bathing/grooming secondary to pain.,difficulty completing carbonizer secondary to pain.,difficulty exercising on a regular basis secondary to pain., anddifficulty participating in recreation on a regular basis secondary to pain.but reportsliving independently.. For onset, patient reportsdate of onset: (going on for over 6 months and gradually getting worse). For location, patient reportsmidline,paraspi nal: right, andbuttock: right. For duration, patient reportsvaries throughout the day. For context, patient reportsstarted without cause. For quality, patient reportsaching,gnawing, stabbing, andthrobbing. For pain intensity, patient reportscurrent pain level: 6/10,average pain level: 6/10, andworst pain level: 8/10. For alleviating factors, patient reportsnothing helps. For aggravating factors, patient reportssitting,standin g, andwalking. For prior imaging, patient reportsmriandct scan. For lumbar surgery, patient reportslumbar spinal fusion:(hx of cervical c3-t1 and lumbar fusion in the past). For physical therapy, patient reportscompleted all recommended pt visits,pt discontinued secondary to increased pain,complete more than 6weeks,dates: (09/2024-),respo nse to therapy: no improvement in pain/symptoms,currentl y participating in home exercise program(hep): not effective, anddate started hep: 09/2024 days per week: 6(patient has been active in hep for low back pain for 6 weeks over the last 3 months for 3-4 days a week for 15-30 min a day with no relief in paindates- 09/2024-current). For other conservative treatments, patient reportsheat: not effectiveandice: not effective. For prior pain management, patient reportsno. For oswestry disability index (emmanuel), patient reportsscore/date completed: (40). For complete care program, patient reportsorder date: (12/08/2024). DILLON PAZ MD [address] [place] [address], [phone], [facility] 12/08/2024 12:33:15 OBGyn Episode No OBEpisode recorded.
--- OUTSIDE RECORDS SUMMARY | 2025-02-28 12:13 | XMS_ITS ---
Author Organization Unknown Results OrderDate OrderTestName ResultName ResultDate Value Units Range AbnormalFlag ResultStatus ObservationNotes TestCode ResultCode DateRecorded AccessionNumber DiagnosticSectionCode DiagnosticSectionName Sequence Interpretation Cust om 03/31/2024 00:00:00 Glycohemoglobin (GHb),Total Glycohemoglobin (GHb),Total [id number]:00:00 5.4 Reviewed Fouzia Lloyd 03/31/2024 10:43:13 AM EST > Glycohemoglobin (GHb),Total Coding Glycohemoglobin (GHb),Total 03/31/2024 00:00: 00:00:00MicroalbuminA:[id number]:00:0030-300 Fouzia Rae 07/13/2024 03:19:35 PM EST > Coding Microalbumin 07/13/2024 00:00: 00:00:[id number]:00:0050 Fouzia Rae 07/13/2024 03:19:35 PM EST > Coding Microalbumin 07/13/2024 00:00: 00:00:[id number]:00:0010 Fouzia Rae 07/13/2024 03:19:35 PM EST > Coding Microalbumin Coding ALB 07/13/2024 00:00: 00:00:[id number]:00:00YELLOW Fouzia Rae 07/13/2024 03:19:35 PM EST > Coding Microalbumin 07/13/2024 00:00: 00:00:07MagsgxngfwurRtxrjlb7001-51-19R55:00:00 CLEARFouzia Rae 07/13/2024 03:19:35 PM EST > Coding Microalbumin 07/13/2024 00:00: 00:00:00Glycohemoglobin (GHb),TotalGlycohemoglobin (GHb),[id number]:00:005.5Fouzia Rae 07/13/2024 03:11:10 PM EST > Coding Glycohemoglobin (GHb),Total Coding Glycohemoglobin (GHb),Total 07/13/2024 00:00:00
--- OUTSIDE RECORDS SUMMARY | 2025-02-28 12:13 | XMS_ITS | Data Portability ---
Author Organization [facility] Address [address] [facility] [place] [address] Care Team Providers Care Corporate Director Talent Assessment Name Role Phone JOSE MARIA ALMANZA Primary Care Provider JUNIOR SOLITARIO Referring Provider Assessment Encounter Date [...] L2-3. However, there is a potential argument drupal programmer fusion higher based on the degree of [...] Recorded Time Spinal stenosis of lumbar region 32074337 Active 018 JF PRICE MD [address] [place] [address], [phone] , [facility] 8 11:24:17 Problem Notes None recorded. Procedures Surgical History Date Name Laterality Status Provider Name and Address Organization Details Recorded Time Back Surgery completed [facility] 09/30/2017 10:38:29 Neck Surgery completed [facility] 09/30/2017 10:38:41 Unlisted px foot/toes completed [facility] 09/30/2017 10:38:49 Other completed [facility] 09/30/2017 10:38:58 Imaging Results None recorded. [...] Updated DateTime 09/30/2017 160.02 cm 36.5 kg/m2 51016.03 g 132/82 mm[Hg] Raquel Villalobos [facility] 09/30/2017 10:59:21 Social History Question Answer Notes LastModified by Organizat ion Details LastModified Time Tobacco Smoking Status Never Smoker Raquel Villalobos [facility] 09/30/2017 10:38:22 What Was The Date Of [...] ICD10 Code Diagnosis IMO Codes Diagnosis Note [id number] JF PRICE MD [facility] [address] [place] [address] 09/30/2017 09:52:12 10/01/2017 11:11:22 Spinal stenosis of lumbar region 45456628 M48.062 Minutes spent reviewing images, discussing the [...] Name 09/30/2017 2 [place] Jenni Curry [id number] Jenni Curry 09/30/2017 1 [facility] PREFERRED CARE (O) [id number] Jenni Curry [id number] Jenni Curry 09/30/2017 1 [place] Jenni Curry [id number] Jenni Curry 09/30/2017 1 [facility] Jenni Curry [id number] Jenni Curry Notes Date Note Type Note Provider Name and Address Organization Details Recorded Time 09/30/2017 text/html 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 Rosa. JF PRICE MD [address] [place] [address], [phone], [facility] 09/30/2017 11:54:32 OBGyn Episode No OBEpisode recorded.
--- OUTSIDE RECORDS SUMMARY | 2025-02-28 12:13 | XMS_ITS | Clinical Summary ---
Author Organization [facility] Address [address] [place] [address] Care Team Providers Care Private Duty Aide Name Role Phone Unavailable Primary Care Provider Unavailabl e Social History Tobacco Use Types Packs/Day Years Used Date Smoking Tobacco: Never Assessed Abuse Screen Answer Date Recorded Unsafe at Home or Work/School Not on file Feels Threatened by Someone? Not on file 03/2023 Does Anyone Keep You from Co ntacting Others or Doint Things Outside the Home? Not on file 02/24/2023 Physical Sign of Abuse Present Not on file 1 Housing Stability Answer Date Recorded Current Living Arrangements Not on file 02/14 Potentially Unsafe Housing Conditions Not on barrett e 02/24/2023 Family and Community Support Answer Wilmar e Recorded Help with Day-to-Day Activities Not on file 02/24/2023 Lonely or Isolated Not on file 02/24/2023 Employment Answer Date Recorded Do you want help finding or keeping work or a reji b? Not on file 02/24/2023 Disabilities Answer Date Recorded Concentrating, Remembering, or Making Decisions Difficulty Not on file 02/24/2023 Doing Errands Independently Difficulty Not on fi le 02/24/2023 Education Answer Date Recorded Help with school or training? Not on file Preferred Language Not on file 02/24/2023 Comments Unknown Sex and Gender Information Value Date Recorded Sex Assigned at Not on file Legal Sex Female 8:56 AM EDT Gender Identity Not on file Sexual Orientation Not on file Plan of Treatment Health Maintenance Due Date Last Done Comments ANNUAL PHYSICAL 1959 DXA SCAN 1960 HEPATITIS C SCREENING 1959 TDAP/TD VACCINES (1 - Tdap) 11/03/1978 MAMMOGRAM 1999 COLOGUARD 11/03/2004 COLON CANCER SCREENING 5 YEAR SIGMOIDOSCOPY 11/03/2004 COLONOSCOPY 11/03/2004 COLORECTAL CANCER SCREENING 11/03/2004 CT COLONOGRAPHY 11/03/2004 FECAL OCCULT BLOOD TEST 11/03/2004 FIT Testing (1 year) 11/03/2004 Pneumococcal Vaccine 50+ (1 of 1 - PCV) 11/03/2009 ZOSTER VACCINE (1 of 2) 11/03/2009 INFLUENZA VACCINE 12/15/2024 COVID-19 Vaccine ( - season) 2025
--- OUTSIDE RECORDS SUMMARY | 2025-02-28 12:13 | XMS_ITS | Clinical Summary ---
Author Organization [employer] ([place], [place], [place], [place]) Address [address] [place] [address] Care Team Providers Care Pumper Head Name Role Phone AlbaniaChristopher tinoco Murtaza HAY SORTER Unavailable [phone] Allergies Active Allergy Reactions Criticality Noted Date Comments Cephalexin 09/19/2024 Ketamine Shortness Of Breath High 02/05/2025 Medications amLODIPine (NORVASC) 5 MG tablet Take [...] mouth 2 (two) times daily. 09/01/2024 Active cyclobenzaprine (FLEXERIL) 10 MG tablet [...] mg total) by mouth daily. 09/01/2024 Active potassium citrate-citric acid (POLYCITRA) 1,100-334 mg/5 mL solution Take by mouth 3 (three) times daily with meals. Active Encounters Date Type Department Care Team Description 02/22/2025 Orders Only [address] [address] Christopher Lovelace APRN Sacroiliac joint dysfunction of right side (Primary Dx) 02/22/2025 Orders Only [address] [address] Christopher Lovelace APRN Sacroiliac joint dysfunction of right side (Primary Dx); Chronic right SI joint pain 02/15/2025 12:15 PM EDT Office Visit [address] [address] Blake Telles DO Chronic right SI joint pain (Primary Dx) 02/15/2025 Travel 02/05/2025 11:30 AM EDT Office Visit [facility] - [facility] [address] [place] [address] Christopher Lovelace APRN Sacroiliac joint dysfunction of right side (Primary Dx) 01/23/2025 12:11 PM EDT - 01/23/2025 11:59 PM EDT Hospital Encounter [facility] CT Imaging [address] [place] [address] Christopher Lovelace APRN Chronic right SI joint pain Discharge Disposition: Home or Self Care 01/22/2025 Outside Orders [facility] Admitting [address] [place] [address] [facility] Connection, Find-A-Doc 01/19/2025 Abstract [facility] - [facility] [address] [place] [address] Blake Telles DO from Last 3 Months Family History Medical [...] Pressure 128/81 02/15/2025 11:40 AM EDT Pulse 90 02/05/2025 11:41 AM EDT Temperature - - Respiratory Rate - - Oxygen Saturation - - Inhaled Oxygen Concentration - - Weight 88.9 kg (196 lb) 02/15/2025 11:40 AM EDT Height 160 cm (5' 3 ) 02/15/2025 11:40 AM EDT Body Mass Index 34.72 02/15/2025 11:40 AM EDT Plan of Treatment Health Maintenance Due [...] Shingles Vaccine (Zoster) (1 of 2) 11/03/2009 Medicare Initial AWV [id number] 02/15/2013 Falls Risk Screening 05/17/2024 COVID-19 VACCINE (3 - season) 01/15/202507/2020, 12/20/2020 Influenza Vaccine (#1) 2025 Tobacco Cessation Counseling and Screening (12+) 02/15/2026 02/15/2025 Respiratory Syncytial Virus (RSV) Adult or (1 - 1-dose 75+ series) 11/03/2034 Procedures Procedure Name Priority Date/Time Associated Diagnosis Comments CT PELVIS WITHOUT IV CONTRAST Routine 01/23/2025 12:32 PM EDT Chronic right SI joint pain from Last 3 Months Results * CT pelvis without IV contrast [...] APRN IMG CT ORDERABLES Final Resu lt from Last 3 Months Insurance [facility] [address] [address] [facility] Care Teams Pumper Head Relationship Specialty Start Date End Date Christopher Lovelace, ROBERT [address] [place] [address] Nurse Practitioner Orthopedic Surgery 02/05/25
--- OUTSIDE RECORDS SUMMARY | 2025-02-28 12:14 | XMS_ITS | Clinical Summary ---
Author Organization [facility] Address [address] [place] [address] Care Team Providers Care Clearance Diver Name Role Phone Bentley Watson MD Primary Care Provider [phone] Family History Medical History Relation Name Comments [...] of Treatment Not on file Care Teams Clearance Diver Relationship Specialty Start Date End Date Bentley Watson MD [facility] [place] [address] PCP - General 09/27/20
--- OUTSIDE RECORDS SUMMARY | 2025-02-28 12:14 | XMS_ITS | Patient Health Record ---
Author Organization [facility] Address [address] [place] [address] [address] [place] [address] Care Team Providers Care Roll Bucker Name Role Phone Yareli Cruz Unavailable [phone] Reason For Referral No Information Problems Problem Type SNOMED Code ICD Code Onset Dates Problem Status W/U Status Risk Notes Problem Adult-onset obesity (119369318) Adult-onset obesity (E66.9) 7 Active confirmed Obesity Problem Counseling (868906054) ACP (advance care planning) (Z71.89) 7 Active confirmed Weight loss counseling Plan Of Treatment No Information Medical (General) History Medical History History ICD Code ANXIETY DEPRESSION ENDOMETRIOSIS HTN OBESITY OSTEOPOROSIS MENSTR FLOW: Light EFFEXOR XR CAPSULE EXTENDED RELEASE 24 H OUR PHENTERMINE HCL 15 MG ORAL CAPSULE, ORAL LISINOPRIL TABLET DICLOFENAC POTASSIUM TABLET CLONAZEPAM TABLET Surgical History Surgery Date(Month/Year) BACK SURGERY X3-1987,2000,2009, NECK ZAY JUANJO X2, HYSTERECTOMY
--- OUTSIDE RECORDS SUMMARY | 2025-02-28 12:14 | XMS_ITS | Data Portability ---
Author Organization [facility] [place] Address [address] [place] [address] Assessment No assessment recorded. Plan of Treatment [...] Address Organization Details Recorded Time Diabetes mellitus 24988058 Active 024 Shannan capellan JULIET GUZMAN [facility] [place] 4 11:27:40 Seasonal allergy 706618837 Active 024 Shannan capellan JULIET GUZMAN [facility] [place] 4 11:27:49 Arthritis 0506102 Active 024 Shannan Alex marilia JULIET Pederson LPNT [facility] & [place] 4 11:27:55 Anxiety 94916178 Active 024 Shannan capellan JULIET GUZAMN [facility] & [place] 4 11:28:01 Depressive disorder 99826103 Active 024 Shannan capellan JULIET GUZMAN [facility] [place] 4 11:28:11 Problem Notes None recorded. Procedures Surgical History Date Name Laterality Status Provider Name and Address Organization Details Recorded Time Total Hysterectomy completed Lincoln GUZMAN [facility] [place] 12/15/2023 11:30:28 procedure on back completed Shannan GUZMAN [facility] [place] 12/15/2023 11:30:36 operation on neck completed Shannan GUZMAN [facility] [place] 12/15/2023 11:30:46 procedure on wrist completed Lincoln GUZMAN [facility] [place] 12/15/2023 11:30:54 procedure on foot completed Shannan GUZMAN [facility] [place] 12/15/2023 11:31:02 tonsillectomy completed Shannan GUZMAN [facility] [place] 12/15/2023 11:31:10 Imaging Results None recorded. Procedure Notes None recorded. Medical Equipment None Reported. Allergies Allergen ID Allergen Name Allergen Category Reaction Reaction Severity Criticality Documentation Date Start Date Code Code System Note Provider Name and Address Organization Details Recorded Time 836727 Substance with sulfonami de structure and antibacte rial mechanism of action (substanc e) medicatio n Not available Not available Not available 12/15/2023 10176 8003 SNOMED Shannan capellan, JULIET GUZMAN [facility] [place] 11:27:29 Medications Name Sig Start Date Stop [...] Updated DateTime 12/15/2023 160.02 cm 35.4 kg/m2 64830.47 g 97.9 [degF] Shannan Johnson [place] - LPNT - [place] & [place] 12/15/2023 11:27:20 Social History None recorded. Functional Status Question Answer Note LastModified by Organizat ion Details LastModified Time What is your level of alcohol consumption? Occasional Information not available 12/15/2023 Mental Status None recorded. Family History Relationship Description Onset Age of this Age Resolved Age Notes LastModified by Organization Details LastModified Time Brother Family history unknown dec [email or web address] Not available 2023 11:29:03 Father Family history unknown dec [email or web address] Not available 2023 11:29:03 Mother Family history unknown dec [email or web address] Not available 2023 11:29:41 Sister Family history unknown dec [email or web address] Not available 2023 11:29:48 Sister Family history unknown Not available 2023 11:29:53 Medical History No medical history recorded. Gynecological HistoryNo gynecological history recorded. Obstetrics History GPAL:G 0 P 0 0 0 0 Past Encounters Encounter ID Performer Location Encounter Start Date Encounter Closed Date Diagnosis/Indication Diagnosis SNOMED-CT Code Diagnosis ICD10 Code Diagnosis IMO Codes Diagnosis Note [id number] Junior Hayes Jr, MD [facility] [address] [address] 12/15/2023 11:11:35 12/15/2023 12:30:22 Urge incontinence of urine 14389742 N39.41 patient with symptoms of daytime frequency, nocturia, urgency and urge incontinen ce. We discussed caffeine cessation and samples of Gemtesa were given. She will follow up in 6 weeks. Female uri nary stress incontinence 39424351 N39.3 we discussed the difference s between urge and stress incontinen ce. We discussed that stress incontinen ce is more of a surgical fix and that the urge incontinen ce needed to be brought under control 1st. He will exercises were recommende d. Cystocele 171855606 N81. 10 patient with grade 2 descensus of the bladder. No surgical indication at this point. Nocturia 506514815 R35.1 we discussed that nocturia can be [...] Guarantor Name 01/23/2024 1 [place] (MEDICARE[place] Jenni Dana Curry [id number] Jenni Curry Notes Date Note Type Note Provider Name and Address Organization Details Recorded Time 12/15/2023 text/html ROS as noted in the HPI Patient is a 63-year-old white female referred [...] has dropped down. Junior Hayes Jr, MD [address] [place] [address] Drive, [address], [place], [address], [facility] - [place] - [place] & [place] 01/14/2024 13:04:52 OBGyn Episode No OBEpisode recorded.
--- OUTSIDE RECORDS SUMMARY | 2025-02-28 12:14 | XMS_ITS | Encounter Summary ---
Author Organization [employer] ([place], [place], [place], [place]) Address [address] [place] [address] Care Team Providers Care Hr Coordinator Name Role Phone Unavailable Primary Care Provider Unavailabl e Encounter Details Date Type Department Care Team (Late st Contact Info) Description 01/19/2025 Abstract [facility] Orthopedics - [address] [address] Blake Telles, [address] [place], [place] [id number] Social History Tobacco Use Types Packs/Day Years [...] documented as of this encounter Visit Diagnoses Not on filedocumented in this encounter
--- OUTSIDE RECORDS SUMMARY | 2025-02-28 12:14 | XMS_ITS | Encounter Summary ---
Author Organization [employer] ([place], [place], [place], [place]) Address [address] [place] [address] Care Team Providers Care Cleaning Laborer Name Role Phone Christopher Lovelace CYTOLOGY LABORATORY MANAGER Unavailable [phone] Reason for Referral * Diagnostic X-Ray (Routine) - Authorized Specialty Diagnoses / Procedures Referred By Contalvarado t Referred To Contact Radiology Diagnoses Sacroiliac joint dysfunction of right side Chronic right SI joint pain Procedures XR PELVIS MIN 3 VIEWS Christopher Lovelace, CYTOLOGY LABORATORY MANAGER [address] [facility] [place] [address] Phone: tel: fax: Referral ID Status Reason Start Date Expiration Date V isits Requested Visits Authorized [id number] Authorized 02/22/2025 02/22/2026 1 1 Encounter Details Date Type Department Care Team (Late st Contact Info) Description 02/22/2025 Orders Only [facility] Orthoped[facility] - [facility] [address] [facility] [address] Christopher Lovelace, CYTOLOGY LABORATORY MANAGER [address] [facility] [place] [address] Sacroiliac joint dysfunction of right side (Primary Dx); Chronic right SI joint pain Social History Tobacco Use Types Packs/Day [...] Routine Sacroiliac joint dysfunction of right side Chronic right SI joint pain Expected: 02/22/2025, Expires: 03/25/2026 documented as of this encounter Visit Diagnoses Diagnosis Sacroiliac joint dysfunction of right side- Primary Chronic right SI joint pain Disorders of sacrum documented in this encounter Care Teams Cleaning Laborer Relationship Specialty Start Date End Date Christopher Lovelace, CYTOLOGY LABORATORY MANAGER [address] [id number] Nurse Practitioner Orthopedic Surgery 02/05/25 documented as of this encounter
--- OUTSIDE RECORDS SUMMARY | 2025-02-28 12:14 | XMS_ITS | Encounter Summary ---
Author Organization [employer] ([place], [place], [place], [place]) Address [address] [place] [address] Care Team Providers Care Protection Engineer Name Role Phone Christopher Lovelace COLLATOR OPERATOR Unavailable [phone] Encounter Details Date Type Department Care Team (Latest Contact Info) Description 02/15/2025 Travel Social History Tobacco Use Types Packs/Day Years [...] Diagnoses Not on filedocumented in this encounter Care Teams Protection Engineer Relationship Specialty Start Date End Date Christopher Lovelace, COLLATOR OPERATOR [address] [place] [address] Nurse Practitioner Orthopedic Surgery 02/05/25 documented as of this encounter
--- OUTSIDE RECORDS SUMMARY | 2025-02-28 12:14 | XMS_ITS | Encounter Summary ---
Author Organization [employer] ([place], [place], [place], [place]) Address [address] [place] [address] Care Team Providers Care Export Manager Name Role Phone Christopher Lovelace SUPPLY CHAIN LOGISTICS MANAGER Unavailable [phone] Reason for Referral * Diagnostic X-Ray (Routine) - Authorized Specialty Diagnoses / Procedures Referred By Contac t Referred To Contact Radiology Diagnoses Sacroiliac joint dysfunction of right side Procedures XR hip 2 views right Christopher Lovelace, ROBERT [address] [facility] [place] [address] Phone: tel: fax: Referral ID Status Reason Start Date Expiration Date V isits Requested Visits Authorized [id number] Authorized 02/22/2025 02/22/2026 1 1 Encounter Details Date Type Department Care Team (Late st Contact Info) Description 02/22/2025 Orders Only [facility] Orthopedics - [facility] [address] [place] [address] Christopher Lovelace, SUPPLY CHAIN LOGISTICS MANAGER [address] [facility] [place] [address] Sacroiliac joint dysfunction of [...] Priority Associated Diagnoses Orde r Schedule XR hip 2 views right Imaging Routine Sacroiliac joint dysfunction of right side Expected: 02/22/2025, Expires: 03/25/2026 documented as of this encounter Visit Diagnoses Diagnosis Sacroiliac joint dysfunction of right side- Primary documented in this encounter Care Teams Export Manager Relationship Specialty Start Date End Date Christopher Lovelace, SUPPLY CHAIN LOGISTICS MANAGER [address] [place] [address] Nurse Practitioner Orthopedic Surgery 02/05/25 documented as of this encounter
--- OUTSIDE RECORDS SUMMARY | 2025-02-28 12:14 | XMS_ITS | Encounter Summary ---
Author Organization [email or web address] ([place], [place], [place], [place]) Address [address] [place] [address] Care Team Providers Care Child Protective Investigator Name Role Phone Christopher Lovelace HAIR SPINNING MACHINE OPERATOR Unavailable [phone] Encounter Details Date Type Department Care Team (Late st Contact Info) Description 01/22/2025 Outside Orders [facility] Admitting [address] [place] [address] [facility] Connection, Find-A-Doc [facility] [place] [address] Social History Tobacco Use Types Packs/Day Years [...] on filedocumented in this encounter Care Teams Child Protective Investigator Relationship Specialty Start Date End Date Christopher Lovelaec, HAIR SPINNING MACHINE OPERATOR [address] [place] [address] Nurse Practitioner Orthopedic Surgery 02/05/25 documented as of this encounter
--- OUTSIDE RECORDS SUMMARY | 2025-02-28 12:14 | XMS_ITS | Referral Summary ---
Author Organization [employer] ([place], [place], [place], [place]) Address [address] [place] [address] Care Team Providers Care Jockey Room Custodian Name Role Phone Christopher Lovelace SPRING SALVAGE WORKER Unavailable Encounters Date Type Department Care Team Description 02/22/[address] [facility] [address] [address] Christopher Lovelace APRN Sacroiliac joint dysfunction of right side (Primary Dx) 02/22/2025 Orders Only [address] [address] Christopher Lovelace APRN Sacroiliac joint dysfunction of right side (Primary Dx); Chronic right SI joint pain 02/15/2025 Travel 02/15/2025 12:15 PM EDT Office Visit [address] [address] Blake Telles DO Chronic right SI joint pain (Primary Dx) 02/05/2025 11:30 AM EDT Office Visit [facility] Orthoped[facility] [address] [place] [address] Christopher Lovelace APRN Sacroiliac joint dysfunction of right side (Primary Dx) 01/23/2025 12:11 PM EDT - 01/23/2025 11:59 PM EDT Hospital Encounter [facility] CT Imaging [address] [place] [address] [place] [address] Christopher Lovelace APRN Chronic right SI joint pain Discharge Disposition: Home or Self Care 01/22/2025 Outside Orders [facility] Admitting [address] [place] [address] [facility] Connection, Find-A-Doc 01/19/[address] [facility] Orthopedics - [facility] [address] [place] [address] Blake Telles DO from Last 3 Months Allergies Active Allergy [...] 3 (three) times daily with meals. Active Social History Tobacco Use Types Packs/Day [...] 02/15/2025 11:40 AM EDT Plan of Treatment Not on [...] dictated by Daniel Rogers MD Christopher Lovelace SPRING SALVAGE WORKER IMG CT ORDERABLES Final Resu lt from Last 3 Months Insurance [employer] [facility] ADV Care Teams Jockey Room Custodian Relationship Specialty Start Date End Date Christopher Lovelace, SPRING SALVAGE WORKER [address] [place] [address] Nurse Practitioner Orthopedic Surgery 02/05/25
--- NOTE | 2025-02-28 12:18 | XR_ITS ---
FINAL REPORT CLINICAL HISTORY: SACROILIAC JOINT DYSFUNCTION FINDINGS: PELVIS Three views were obtained. There is no fracture or dislocation. There is degenerative disease of the sacroiliac joints bilaterally. Portion of a surgical screw is seen in the right sacrum which could be related to prior hardware placement. There is no evidence of ankylosis or erosion. Evaluation of the hardware in the lumbar spine is limited. No soft tissue abnormality is identified. 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 Reviewed, Interpreted and Dictated by Gabrielle Martinez MD Transcribed by Deedee Heaton Authenticated and [facility]
--- NOTE | 2025-02-28 12:20 | XR_ITS ---
FINAL REPORT CLINICAL HISTORY: .RT SI/HIP PAIN FINDINGS: RIGHT HIP Two views were obtained. There is no fracture or dislocation. The joint spaces appear normal. No soft tissue abnormality is identified. IMPRESSION: No acute process. Reviewed, Interpreted and Dictated by Gabrielle Martinez MD Transcribed by Deedee Heaton Authenticated and [facility]
== END 2025-02-28 23:59 | disposition home or self-care (01) ==
PROVIDERS: PCP Nurse Practitioner; Visit Provider Nurse Practitioner Family
DX: M46.1 Sacroiliitis, not elsewhere classified (principal)
CPT/HCPCS: 72190; 73502